=== PATIENT | female | born 1950 | race Caucasian/White ===

== ENCOUNTER → 2017-11-21 09:29 | Outpatient (CLI) | payer MEDICARE, SELFPAY ==
--- NOTE | 2017-11-21 09:32 | MM_ITS ---
MM Dig screening mamm BI w/CAD ORDERING PHYSICIAN : Abraham Larsen MD PATIENT AGE: 67 years GENDER: Female COMPARISON: October outside mammogram studies [facility] INDICATION: ITS.REASON: SCREENING TECHNIQUE: Standard CC and MLO images were obtained. R2 CAD reviewed. FINDINGS: Outside mammogram studies of finally arrived and now available for comparison] . Low-density breast bilaterally. Diffuse fatty replacement. No dominant mass nor suspicious calcifications either breast. . IMPRESSION: no new areas of significant concern. Follow-up in one year recommended Stable mammogram BI-RADS Category: 1 Negative RECOMMENDED FOLLOW-UP: 1YR 1 YEAR FOLLOW-UP (A letter has been sent to the patient regarding results of the study.)
== END ==
PROVIDERS: PCP Family Medicine; Visit Provider Family Medicine
DX: Z12.31 Encounter for screening mammogram for malignant neoplasm of breast (principal)
CPT/HCPCS: 77067

== ENCOUNTER → 2019-02-20 12:20 | Outpatient (CLI) | payer MEDICARE, SELFPAY ==
--- NOTE | 2019-02-20 12:27 | XR_ITS ---
PROCEDURE: XR LUMBAR SPINE MIN 4V CLINICAL INDICATION: LBP W/ SCIATICA COMPARISON: No exams were available for comparison FINDINGS: There is normal curvature and alignment. L2 through L5 appear intact. There is minor non recent compression fracture of L1 prominent anterior osteophytic spurring at the T12-L1 level. There is approximately 20 percent loss of height of L1. There is no pars defect. There are mild hypertrophic facet changes at the L4-5 L5-S1 levels. The SI joints are normal.. IMPRESSION: Non recent compression fracture of L1 otherwise centrally unremarkable lumbar spine Dictated by: Dr. Asif Bradford MD 02/21/2019 09:[address] Asif Bradford MD in [place] 02/21/2019 09:15
== END ==
PROVIDERS: PCP Family Medicine; Visit Provider Family Medicine
DX: M54.42 Lumbago with sciatica, left side (principal)
CPT/HCPCS: 72110

== ENCOUNTER → 2019-03-01 13:33 | Outpatient (CLI) | payer MEDICARE, SELFPAY | PROVIDERS: PCP Family Medicine; Visit Provider Family Medicine | DX: M54.5 Low back pain (principal) ==

== ENCOUNTER → 2019-04-13 12:34 | Outpatient (CLI) | payer MEDICARE, SELFPAY ==
--- NOTE | 2019-04-13 12:37 | MR_ITS ---
PROCEDURE: MR LUMBAR SPINE WO CON CLINICAL INDICATION: BILATERAL LOW BACK PAIN W/SCIATICA, SCIATICA LATERALLY UNSPE COMPARISON: No exams were available for comparison TECHNIQUE: Standard multiplanar multiecho sequences are performed without contrast. 3-D MIP and myelographic images are also rendered and reviewed FINDINGS: The vertebrae are of normal height and alignment. There is no malignant bone marrow signal. Desiccation of all visualized intervertebral discs from T11-12 to L5-S1 are noted. At T12-L1, L1-L2, L2-3 there is eccentric disc bulge toward the right lateral and foraminal margin of the disc space. There are no high-grade central canal or foraminal stenosis. At L3-4 there is disc bulge greatest in the right foraminal and lateral margin of the disc space. There is hypertrophic facet disease. There is mild mass effect on the thecal sac without high-grade central canal stenosis. There is bilateral foraminal stenosis right greater than left. At L4-5 there is broad-based disc bulge and there is hypertrophic facet disease. Small annular tear is seen along the posterior left lateral margin of the disc without herniation. There is mild mass effect on the thecal sac without central canal stenosis is apparent. There is bilateral foraminal stenosis right greater than left. At L5-S1 there is broad-based disc bulge and there is hypertrophic facet disease with no significant mass effect upon the thecal sac. There is bilateral foraminal stenosis right greater than left. IMPRESSION: Multilevel degenerative disc and facet disease with no disc herniation with foraminal stenoses as described appearing greatest on the right at L4-5 Dictated by: Kishan Sorensen 04/13/2019 13:44 Electronically signed by Kishan Sorensen in [place] 04/13/2019 13:44
== END ==
PROVIDERS: PCP Family Medicine; Visit Provider Family Medicine
DX: M54.40 Lumbago with sciatica, unspecified side (principal); S32.010A Wedge compression fracture of first lumbar vertebra, initial encounter for closed fracture
CPT/HCPCS: 72148; 76376

== ENCOUNTER → 2019-06-11 11:13 | Outpatient (POV) | payer MEDICARE, SELFPAY ==
[2019-06-11 11:27] VITALS: BP 116/68; PULSE 67; RESP 18; TEMP 36.6; O2SAT 99; BMI 27.8
--- NOTE | 2019-06-11 14:32 | HMH.PMCON ---
Assessment and Plan (1) Degenerative joint disease (DJD) of lumbar spine Current visit: Yes Status: Chronic Qualifiers: Spinal osteoarthritis complication: with radiculopathy Qualified Code(s): M47.26 - Other spondylosis with radiculopathy, lumbar region Category: Medical Code(s): M47.816 - Spondylosis without myelopathy or radiculopathy, lumbar region - Assessment and plan all Dx Assessment and Plan for all problems:: We will set the patient up for physical therapy. She is been instructed to call the office if she has any issues prior to her next appointment. We will follow-up with her after 8 weeks of therapy. We specifically discussed risk factors for Covid-19 including age, heart or lung disease, diabetes, immunosuppression and travel. We also discussed that NSAIDs may worsen Covid-19 infection symptoms and that they should not be used to treat Covid-19 symptoms. Patient was also informed that corticosteroids in any form oral or injectable will decrease immune response and may increase risk of Covid-[address] Sorensen has reviewed this patient's chart and this note and agrees with plan of care. Patient has been instructed to call the office if they have any issues prior to the next appointment. Dr. Sorensen has reviewed this note and agrees with this plan of care. This note was dictated using voice recognition software and may contain errors or omissions HPI - Data of Consult Consult date: 06/11/19 Requesting Physician: Alka Zayas APRN Primary Care Provider: Abraham Larsen MD - Consult Narrative Reason for consult: Back pain, leg pain History of present illness: Ms. Wright is a 70 year old female who presents today for consultation in regards to her low back and leg pain. She is has left hip pain radiating into her leg as well. She states increased activity increases her pain will rest and meloxicam decrease her pain. She states is worse when she is lying down. Patient rates her pain today a 7 out of 10. Patient has an MRI showing some degenerative changes bulging disc again and old L1 compression fracture. She is unable to take gabapentin because it makes me crazy . Patient is uninterested in injective therapy because she states she has heard that it weakens the bones and deteriorates them. Patient and I discussed physical therapy and she would like to move forward with this. CC: Alka Zayas APRN [facility] History I have reviewed the patient's past medical history: Yes Medical History: Reports:: Diabetes Mellitus Type 2, Hyperlipidemia Denies:: Cancer, Diabetes Mellitus Type 1, MRSA *Have you ever received a pneumonia vaccine?: Yes *Have you received a flu vaccine this season?: Yes Other Medical History: Reports: Arthritis Other Surgeries: Yes: Colonoscopy Amputation: No Fractures: No - *Social History Smoking Status: Never smoker Alcohol Intake: never *Occupational Status:: other Housing: house Household Members: other *Travel in the last 8 weeks: None Family Hx:: Unable to obtain Review of Systems - Review of Systems ROS General: no recent weight change, no fever, no sleep disturbances Respiratory: no cough, no shortness of air, no recurring pulmonary infections Cardiovascular/Peripheral Vascular: No chest pain, No palpitations, no edema, no shortness of breath. Gastrointestinal: no new onset incontinence, normal bowel movements reported Genitourinary: no new onset incontinence Musculoskeletal: Back pain, leg pain Psychiatric: normal mood/ affect, Neurological: [denies new onset weakness in extremities], [denies new onset balance issues] Meds Home Medications Medication Instructions Recorded Confirmed Type Insulin NPH Hum/Reg Insulin Hm 45 unit SQ BID 10/08/17 12/15/17 History [Novolin 70-30 100 Unit/ml Vial] Aspirin [Aspirin 81mg EC Tab] 81 mg PO DAILY 12/15/17 12/15/17 History Cholecalciferol (Vitamin D3) 1,000 unit PO DAILY
== END ==
PROVIDERS: PCP Family Medicine; Visit Provider Clinical Nurse Specialist Family Health
DX: M47.26 Other spondylosis with radiculopathy, lumbar region (principal)
CPT/HCPCS: 99202

== ENCOUNTER 2019-08-16 09:00 | Outpatient (RCR) | payer MEDICARE, SELFPAY ==
--- NOTE | 2019-06-25 14:01 | HMH.PTOPEV ---
PT Outpatient Evaluation Rehab PT Outpatient Evaluation Start: 06/25/19 13:25 Freq: Status: Active Protocol: Document 06/25/19 13:25 NERY (Rec: 06/25/19 14:01 NERY [id number]) Electronically Signed By Mich Gar, PT 06/25/19 13:25 Outpatient Therapy Subjective History Subjective History Pt reports h/o chronic LBP since 'bad tubal surgery in the 80's'. Pt reports exacerbation of s/s ~2 yrs ago after falling off ladder, casuing L sided LBP and L LE radicular s/s to the toes. Pt reports TIA caused balance deficits, which led to aforementioned fall. Chief Complaint Pain,Stiff,Paresthesia, Weakness Symptom Type Ache,Sharp,Dull Symptoms Relieved By Rest/Positioning,Heat Symptoms Aggravated By Bending/Stooping,Physical Activity,Lifting Prior Functional Limitations Lifting,Housework Current Functional Limitations Lifting,Housework,Squatting, Walking,Bending/Stooping Symptom Description Constant but Variable Level of pain today (0-10) 10 Pain scale - at its best (0-10) 4 Pain scale - at its worst (0-10) 10 Lumbopelvic Eval Posture Thoracic Spine Posture Standing Position Flattened Lumbar Spine Posture Standing Position Flattened Assistive device Assistive Devices None / NA Gait Observation General Gait Pattern Observation Antalgic Gait Palapation tenderness left lumbar spinal tenderness Yes: 2-3/4 paraspinal tenderness Yes: 3/4 buttock tenderness Yes: 3/4 Lumbar/Sacral Palpation Findings Tenderness,Trigger Point, Muscle Guarding Accessory Movement T-spine Vertebrae Accessory Movements Central P/A [place] that Elicit Symptoms T10 bilateral T11 bilateral T12 bilateral L-spine Vertebrae Accessory Movements Central P/A [place] that Elicit Symptoms L2 bilateral L3 bilateral Range of Motion Lumbar Spine Active Flexion Range of 0-60 Motion (degrees) Lumbar Spine Active Extension Range of 0-20 Motion (degrees) Left Lumbar Spine Lateral Flexion Active 0-20 Range of Motion (degrees) Right Lumbar Spine Lateral Flexion 0-25 Active Range of Motion (degrees) Lumbar Spine ROM Limitations Soft Tissue Tightness,Pain Manual Muscle Test Bilateral Knee Extension Strength Grade 5 Normal
--- NOTE | 2019-07-31 11:46 | HMH.RHREAS ---
Rehab Reassessment Rehab OP Re-assessment Start: 07/31/19 11:27 Freq: Status: Active Protocol: Document 07/31/19 11:27 LAUROMO (Rec: 07/31/19 11:46 LAUROMO [id number]) Electronically Signed By Mich Gar, PT 07/31/19 11:27 Rehab Re-assessment Subjective Subjective PT REPORTS IMPROVEMENTS IN ABILITY TO AMBULATE SINCE I EVAL, HOWEVER STILL REPORTS SIGNIFICANT PAIN IN B LE'S AT NIGHT Objective Objective Notes MMT: L HIP FLX 4-/5, L KNEE EXT 4-4+/5, L KNEE FLX 4-/5, L DF 5/5 AROM: LUMBAR SPINE FLX 0-20, EXT 0-20, R SB 0-20, L SB 0-15 TTP: L LUMBAR PARA 2-3/4, L PIRIFORMIS 2-3/4 Assessment Progress Assessment Slower Than Expected Assessment Notes SLIGHT IMPROVEMENT IN TTP Patient goals met STG'S 04/29 Goals Not Met STG'S 07/30, LTG'S 10/30 Plan Plan PT TO CONT. W/SKILLED P.T. TO MAKE FURTHER IMPROVEMENTS IN AROM, STRENGTH, AND TTP TO ALLOW FOR OPTIMAL FUNCTION Frequency of Therapy 1-2X/WK Duration of therapy 3-4WKS Time and Billing Re-Eval Time 15 Re-Eval Billing Units 0 PHYSICIAN CERTIFICATION: I certify the specified therapy services for Keren Wright are required, authorized, and reviewed every 30 days.
== END 2019-08-16 09:05 | disposition home or self-care (01) ==
LOC: PT 09:00
PROVIDERS: PCP Family Medicine; Visit Provider Clinical Nurse Specialist Family Health
DX: M54.5 Low back pain (principal)
CPT/HCPCS: 97010; 97014; 97033; 97035; 97110; 97163; 97164; G0283

== ENCOUNTER → 2019-09-18 13:07 | Outpatient (CLI) | payer MEDICARE, SELFPAY ==
--- NOTE | 2019-09-18 | CA_ITS ---
APPROVED REPORT Bilateral Lower Extremity Venous Study for DVT. 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 Conclusion No evidence of DVT or superficial thrombophlebitis in the veins scanned of the left lower extremity. Electronically signed by : Alfonso Barrientos, 09/19/2019 11:32:19
--- NOTE | 2019-09-18 13:38 | XR_ITS ---
PROCEDURE: XR KNEE LT 3V CLINICAL INDICATION: LT LEG PAIN Sciatica pain. COMPARISON: No exams were available for comparison FINDINGS: No fracture or dislocation. No lytic or blastic change. There is bony demineralization. Mild/moderate osteoarthrosis of the medial femorotibial compartment. Mild arthrosis of the patellofemoral articulation Other findings:No demonstrated joint effusion. Mixed density changes are incompletely visualized posteriorly in the distal thigh, question hematoma, suggest clinical correlation. IMPRESSION: 1. No demonstrated acute osseous injury or dislocation. Osteopenia. 2. Mixed density soft tissue changes are incompletely visualized posteriorly in the distal left thigh. Please correlate clinically. Dictated by: Alfonso Barrientos 09/18/2019 17:23 Electronically signed by Alfonso Barrientos in [place] 09/18/2019 17:23
--- NOTE | 2019-09-18 13:38 | XR_ITS ---
PROCEDURE: XR HIP LT 2-3V W/PELVIS CLINICAL INDICATION: LT LEG PAIN Sciatica pain. COMPARISON: No exams were available for comparison FINDINGS: No fracture or dislocation is evident. No lytic or blastic change. Bones appear somewhat osteopenic. Visualized bilateral iliac wings, sacrum and superior/inferior pubic rami appear intact. There is moderate right hip and moderately severe left hip osteoarthrosis evident with mild asymmetric joint space narrowing, subchondral sclerosis and with left acromial osteophyte formation laterally. Moderately increased stool is seen in the ascending and rectosigmoid colon. A 1.2 centimeter rounded calcified density centrally in mid pelvis is seen, probably a small calcified fibroid Unremarkable soft tissues. IMPRESSION: 1.No acute findings. 2. Mild/moderate right hip and moderate left hip osteoarthrosis. Dictated by: Alfonso Barrientos 09/18/2019 14:08 Electronically signed by Alfonso Barrientos in [place] 09/18/2019 14:08
== END ==
PROVIDERS: PCP Family Medicine; Visit Provider Nurse Practitioner Family
DX: M79.605 Pain in left leg (principal)
CPT/HCPCS: 73502; 73562; 93971

== ENCOUNTER → 2019-09-20 09:53 | Outpatient (POV) | payer MEDICARE, SELFPAY ==
[2019-09-20 10:36] VITALS: BP 132/88; PULSE 85; RESP 18; TEMP 37; O2SAT 98; BMI 29.0
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
== END ==
PROVIDERS: PCP Family Medicine; Visit Provider Clinical Nurse Specialist Family Health
DX: M46.1 Sacroiliitis, not elsewhere classified (principal); M54.5 Low back pain
CPT/HCPCS: 99212

== ENCOUNTER → 2019-09-27 09:50 | Outpatient (CLI) | payer MEDICARE, SELFPAY ==
--- NOTE | 2019-09-27 09:55 | MM_ITS ---
PROCEDURE: MM DIG SCREENING MAMM BI W/CAD Patient Age:70Y CLINICAL INDICATION: SCREENING COMPARISON: [place] Mammogram Routine Screening Bilat from 08/14/2008 [facility] Mammogram Routine Screening Bilat from 08/21/2009 [facility] Mammogram Routine Screening Bilat from 10/28/2010 [facility] MM Dig screening mamm BI w/CAD from 11/21/2017 TECHNIQUE: Standard CC and MLO images were obtained. R2 CAD reviewed. Bilateral digital breast tomosynthesis included. FINDINGS: Lower density breast with no new areas of concern. Minimal fibroglandular elements bilaterally with [id number] diffuse fatty replacement. No new dominant or suspicious mass. No suspicious calcifications, only minimal vascular calcifications.. Minor asymmetry IMPRESSION: Stable bilateral mammogram. . No new areas of concern. BI-RAD Category: 2 Benign Finding(s) FOLLOW-UP: 1YR 1 Year Follow-up is the the (A letter has been sent to the patient regarding results of the study.) Dictated b Demond Pearce MD 09/28/2019 12:55 Demond Pearce MD in [place] 09/28/2019 12:55
--- NOTE | 2019-09-27 09:56 | XR_ITS ---
PROCEDURE: XR DEXA AXIAL SKELETON CLINICAL HISTORY: POST MENOPAUSAL COMPARISON: No exams were available for comparison FINDINGS: The right hip BMD is 0.628 with a t-score of -2.0. The left hip BMD is 0.664 with a t-score of -2.3. The lumbar spine BMD is 0.863 with a t-score of -1.7. IMPRESSION: Osteopenia with moderate fracture risk. Treatment advised. Suggest follow-up exam in 2 years. Dictated b Fabio Peña MD 09/28/2019 06:05 Fabio Peña MD in [place] 09/28/2019 06:05
== END ==
PROVIDERS: PCP Family Medicine; Visit Provider Nurse Practitioner Family
DX: Z12.31 Encounter for screening mammogram for malignant neoplasm of breast (principal); Z78.0 Asymptomatic menopausal state; M85.89 Other specified disorders of bone density and structure, multiple sites
CPT/HCPCS: 77063; 77067; 77080

== ENCOUNTER → 2020-01-10 10:58 | Outpatient (POV) | payer MEDICARE, SELFPAY ==
[2020-01-10 11:21] VITALS: BP 136/86; PULSE 67; RESP 18; O2SAT 98; BMI 28.6
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
== END ==
PROVIDERS: PCP Family Medicine; Visit Provider Clinical Nurse Specialist Family Health
DX: M54.5 Low back pain (principal); M46.1 Sacroiliitis, not elsewhere classified
CPT/HCPCS: 99212

== ENCOUNTER 2020-02-04 14:00 | Emergency (ER) | payer MEDICARE, SELFPAY ==
[2020-02-04 14:20] VITALS: BP 131/74; PULSE 67; RESP 21; TEMP 37.1; O2SAT 98; BMI 28.1
--- NOTE | 2020-02-04 14:45 | HMH.EDUTC ---
[facility] [place] Disposition Clinical Impression: Bronchitis, Exposure to COVID-19 virus Disposition: Home, Self-Care Condition on Discharge: Good Instructions: Preventing the Spread of Coronavirus Discharge Instructions Additional Instructions: Drink plenty of fluids. Take tylenol or ibuprofen for pain or fever. Take the medications as directed. Follow up with your regular doctor. GO TO THE ER FOR ANY WORSENING SYMPTOMS Prescriptions: Benzonatate [Tessalon Perle 100mg Cap] 100 mg PO TIDP PRN #30 cap PRN Reason: Cough [facility]: [id number] Azithromycin [Z-Jose Guadalupe 250mg Tab*] 250 mg PO UD DOSE PK #6 tab Transmission Status: Received by [id number] Referrals: Abraham Larsen MD [Primary Care Provider] - Time of Disposition: 14:57 Medical Decision Making - Medical Records Medical records reviewed: No: I reviewed the patient's medical records. - Suresh Inquiry Pt receiving controlled substance: No Vital Signs: 02/04/20 14:20 02/04/20 14:58 Temperature 98.7 F 98.7 F Temperature Source Oral Pulse Rate 67 Pulse Rate [Left Brachial] 67 Respiratory Rate 21 21 Blood Pressure 131/74 Blood Pressure [Left Arm] 131/74 Blood Pressure Mean [Left Arm] 93 Blood Pressure Source [Left Arm] Automatic Cuff Blood Pressure Position [Left Arm] Sitting 02 Sat by Pulse Oximetry 98 Oxygen Delivery Method Room Air Orders (Tests/Meds): ORDERS Category Date Time Status Covid-19 Nasal PCR Sendout Saleem Routine Lab 02/04/20 14:25 Received [facility] [place] HPI - General Stated complaint: covid test Time Seen by Provider: 02/04/20 14:45 Mode of Arrival: Ambulatory Source of Information: Patient Limitations: No Limitations Description of Symptoms (Recalled from Triage Doc. by RN): PATIENT C/O DIARRHEA, FATIGUE, NAUSEA, HEADACHE, BACK PAIN, DECREASED HEARING IN RIGHT EAR, AND DIZZINESS X APPROX 1 WEEK. DENIES FEVER HEENT Symptoms (Recalled from RN notes): Yes Resp Symptoms (Recalled from RN notes): Yes Skin Symptoms (Recalled from RN notes): Yes MS Symptoms (Recalled from RN notes): No Functional Status (Recalled from RN notes): WNL - History of Present Illness Provider Complaint: She states that for the past 3 days she has had upset stomach, chest congestion, cough, sinus congestion and ear pain. - Related Data Home Medications Medication Instructions Recorded Confirmed Cholecalciferol (Vitamin D3) 1,000 unit PO DAILY 12/15/17 12/27/19 [Vitamin D3 1,000 Unit Tab] atorvastatin 80 mg tablet PO 06/18/19 12/27/19 glipizide 5 mg tablet, extended mg PO 06/18/19 12/27/19 release 24 hr insulin human U-100 NPH-regulr 60 unit SQ BID ml 12/27/19 12/27/19 70-30 mix 100 unit/mL subcutaneous susp pregabalin 100 mg capsule 100 mg PO cap 12/27/19 12/27/19 Previous Rx's Medication Instructions Recorded Meloxicam [Mobic 7.5mg Tab] 7.5 mg PO BID #20 tab 12/15/17 ciclopirox 8 % topical solution 1 applic TOPICAL DAILY 90 Days 06/18/19 #6.6 ml ketoconazole 2 % topical cream 1 applic TOPICAL BID 30 Days #30 g 12/27/19 Duloxetine HCl [Cymbalta] 30 mg PO DAILY 30 Days #30 01/10/20 capsule. Azithromycin [Z-Jose Guadalupe 250mg Tab*] 250 mg PO UD DOSE PK #6 tab 02/04/20 Benzonatate [Tessalon Perle 100mg 100 mg PO TIDP PRN #30 cap 02/04/20 Cap] Allergies Allergy/AdvReac Type Severity Reaction Status Date / Time codeine Allergy Intermediate Verified 12/27/19 14:31 - Worker's Comp Is this a Worker's Comp case?: No [facility] History - Hepatitis A Screen Drug use history?: No High risk sexual behaviors?: No History of sexually transmitted infection?: No Currently employed?: No Childcare worker?: No Do you have indoor plumbing?: Yes Do you have electricity?: Yes Attestation statement:: This patient has been screened for Hepatitis A risk factors. I have reviewed the patient's past medical history: Yes Medical History: Reports:: Diabetes Mellitus Type 2, Hyperlipidem
[2020-02-04 14:58] VITALS: BP 131/74; PULSE 67; RESP 21; TEMP 37.1; O2SAT 98
[2020-02-07 10:24] LABS: Covid-19 Nasal PCR Sendout Lex Positive
--- NOTE | 2020-02-07 11:07 | PC.NURSE ---
PT NOTIFIED OF POSITIVE COVID TEST RESULTS
== END 2020-02-04 15:05 | disposition home or self-care (01) ==
PROVIDERS: Emergency Provider Nurse Practitioner Family; PCP Family Medicine
DX: Z20.828 Contact with and (suspected) exposure to other viral communicable diseases (principal); J20.9 Acute bronchitis, unspecified; E78.5 Hyperlipidemia, unspecified; E11.9 Type 2 diabetes mellitus without complications; Z88.5 Allergy status to narcotic agent; Z79.899 Other long term (current) drug therapy
CPT/HCPCS: G0463; 99201; U0004

== ENCOUNTER → 2020-03-27 11:25 | Outpatient (CLI) | payer MEDICARE, SELFPAY | PROVIDERS: PCP Family Medicine; Visit Provider Family Medicine | DX: G47.33 Obstructive sleep apnea (adult) (pediatric) (principal); R40.0 Somnolence; R06.83 Snoring | CPT/HCPCS: G0399 ==

== ENCOUNTER 2020-04-04 09:53 | Observation (INO) | payer MEDICARE, SELFPAY ==
[2020-04-04] VITALS (8 sets, daily range): BP systolic 126–200; BP diastolic 55–84; PULSE 54–62; RESP 16–20; TEMP 36.6–36.9; O2SAT 92–99; BMI 30.7; BMI 29.2
--- NOTE | 2020-04-04 10:07 | XR_ITS ---
PROCEDURE: XR HIP RT 2-3V W/PELVIS CLINICAL INDICATION: fall Posttraumatic pain COMPARISON: CR XR HIP LT 2-3V W/PELVIS from 09/18/2019 FINDINGS: There are mild osteoarthritic changes of the hips. No acute fracture or dislocation. IMPRESSION: No acute findings. Dictated by: Fabio Peña MD 04/04/2020 10:31 Fabio Peña MD in [place] 04/04/2020 10:31
[2020-04-04 10:23] LABS: Basophils % 0.8 % (0.1-2.0); Eosinophils # 0.2 K/mm3 (0.0-0.4); Eosinophils % 2.9 % (0.1-12.0); Hematocrit 43.9 % (37.0-47.0); Hemoglobin 14.3 g/dL (12.2-16.2); Lymphocytes # 1.7 K/mm3 (0.7-4.5); Lymphocytes % 31.9 % (10-50); Mean Corpuscular HGB Conc 32.6 g/dL (31.8-35.4); Mean Corpuscular Hemoglobin 29.7 pg (27.0-31.2); Mean Corpuscular Volume 91.3 fl (81-99); Mean Platelet Volume 8.4 fl (7.4-10.4); Monocytes # 0.3 K/mm3 (0.1-1.0); Monocytes % 5.8 % (1.7-9.3); Neutrophils # 3.1 K/mm3 (1.8-7.8); Neutrophils % 58.6 % (37.0-80.0); Platelet Count 221 K/mm3 (142-424); Red Blood Count 4.81 M/mm3 (4.20-5.40); Red Cell Distribution Width 13.7 % (11.5-17.5); White Blood Count 5.2 K/mm3 (4.8-10.8)
[2020-04-04 10:30] LABS: Chloride 103 mmol/L (98-107); Potassium 3.7 mmoL/L (3.5-5.1); Sodium 140 mmol/L (136-145)
[2020-04-04 10:32] LABS: Alanine Aminotransferase 17 U/L (12-78); Aspartate Amino Transferase 23 U/L (14-36); Blood Urea Nitrogen 11 mg/dl (7-17); Creatinine Clearance Estimated 68 mL/min (50-200); Estimated Glomerular Filt Rate 70 ml/min (>60); GFR (African American) 85 ML/MIN (>60)
[2020-04-04 10:33] LABS: Albumin Level 4.5 g/dl (3.5-5.0); Albumin/Globulin Ratio 1.4 (1.1-1.8); Alkaline Phosphatase 87 U/L (38-126); Anion Gap 6.7 mEq/L (5-15); Bilirubin,Total 0.8 mg/dl (0.2-1.3); Calcium 9.7 mg/dl (8.4-10.2); Carbon Dioxide 34 mmol/L (22.0-30.0); Globulin 3.2 g/dL (1.3-3.2); Glucose 170 mg/dl (74-100); Total Protein,Serum 7.7 g/dl (6.3-8.2)
--- NOTE | 2020-04-04 10:43 | HMH.EDGENADL ---
ED Disposition Clinical Impression: Multiple transverse process fractures Disposition: Admitted as Observation Condition on Discharge: Fair - Critical Care Critical Care Time: No Attestation: On 04/04/20, the high probability of a clinically significant, sudden or life threatening deterioration of the following system(s) required my full and direct attention, intervention and personal management. The time I documented below is in addition to time spent performing reported procedures but includes the following listed in this critical care notation. Medical Decision Making - Suresh Inquiry Pt receiving controlled substance: Yes Suresh was queried for this patient: Yes Risks and benefits of using a controlled substance: were not discussed with pt by me Vital Signs: 04/04/20 09:54 04/04/20 10:34 04/04/20 11:00 Temperature 98.5 F Temperature Source Oral Pulse Rate Pulse Rate [Radial] 61 57 L 58 L Respiratory Rate 16 18 18 Blood Pressure Blood Pressure [Right Arm] 200/84 H 188/78 H 176/84 H Blood Pressure Mean [Right Arm] 122 114 114 Blood Pressure Source Blood Pressure Position Blood Pressure Position [Right Arm] Sitting 02 Sat by Pulse Oximetry 98 97 99 Oxygen Delivery Method Room Air Room Air 04/04/20 11:30 04/04/20 14:07 04/04/20 14:43 Temperature 98 F Temperature Source Oral Pulse Rate 62 Pulse Rate [Radial] 54 L 60 Respiratory Rate 18 16 Blood Pressure 170/82 H Blood Pressure [Right Arm] 175/76 H 170/82 H Blood Pressure Mean [Right Arm] 109 111 Blood Pressure Source Manual Cuff/ Palpation Blood Pressure Position Supine Blood Pressure Position [Right Arm] Sitting 02 Sat by Pulse Oximetry 96 Oxygen Delivery Method Room Air - Lab Data Lab results reviewed: Yes: I reviewed the patient's lab results. Lab Results 04/04/20 10:06: WBC 5.2, RBC 4.81, Hgb 14.3, Hct 43.9, MCV 91.3, MCH 29.7, MCHC 32.6, RDW 13.7, Plt Count 221, MPV 8.4, Neut % (Auto) 58.6, Lymph % (Auto) 31.9, Russell % (Auto) 5.8, Eos % (Auto) 2.9, Baso % (Auto) 0.8, Neut # (Auto) 3.1, Lymph # (Auto) 1.7, Russell # (Auto) 0.3, Eos # (Auto) 0.2, Baso # (Auto) 0.0 04/04/20 10:06: Sodium 140, Potassium 3.7, Chloride 103, Carbon Dioxide 34 H, Anion Gap 6.7, BUN 11, Creatinine 0.80, Estimated Creat Clear 68, Estimated GFR 70, Est GFR ( Amer) 85, Glucose 170 H, Calcium 9.7, Total Bilirubin 0.8, AST 23, ALT 17, Alkaline Phosphatase 87, Total Protein 7.7, Albumin 4.5, Globulin 3.2, Albumin/Globulin Ratio 1.4 04/04/20 10:10: Chlamy pneumoniae PCR Not detected, Adenovirus (PCR) Not detected, B. pertussis DNA (PCR) Not detected, Coronavirus OC43 (PCR) Not detected, Coronavirus HKU1 (PCR) Not detected, Coronavirus 229E (PCR) Not detected, SARS-CoV-2 (PCR) Not detected, Coronavirus NL63 (PCR) Not detected, Human Metapneumovir PCR Not detected, Influenza A (H1) PCR Not detected, Influ A (H1N1/09) PCR Not detected, Influenza A (H3) PCR Not detected, Influenza Type A (PCR) Not detected, Influenza Type B (PCR) Not detected, M. pneumoniae (PCR) Not detected, Parainfluenza 1 (PCR) Not detected, Parainfluenza 2 (PCR) Not detected, Parainfluenza 3 (PCR) Not detected, Parainfluenza 4 (PCR) Not detected, RSV (PCR) Not detected, Entero/Rhino (PCR) Not detected Result diagrams: 04/04/20 10:06 04/04/20 10:06 Orders (Tests/Meds): ED MEDICATIONS Generic Name Dose Route Start Last Admin Trade Name Freq PRN Reason Stop Dose Admin Acetaminophen 1,000 mg 04/04/20 15:17 Acetaminophen 500mg Tab PO 05/04/20 15:16 Q6HP PRN Mild to Moderate Pain Atorvastatin Calcium 80 mg 04/04/20 21:00 Atorvastatin 40mg Tablet PO 05/04/20 20:59 HS MONICA Diazepam 2 mg 04/04/20 15:34 Diazepam 2mg Tablet PO 05/04/20 15:33 Q6HP PRN Muscle Spasm Duloxetine HCl 30 mg 04/05/20 09:00 Duloxetine 30mg Capsule.Dr CARRION 05/05/20 08:59 DAILY [facility] Insulin Human Lispro 0 unit 04/04/20 16:30 04/04/20 17:29
--- NOTE | 2020-04-04 10:50 | CT_ITS ---
PROCEDURE: CT PELVIS WO CON CLINICAL INDICATION: fall Posttraumatic pain, fall with injury and pain COMPARISON: MR MR LUMBAR SPINE WO CON from 04/13/[address] HIP RT WO CON from 04/04/2020 TECHNIQUE: Axial images obtained with sagittal and coronal reformats. All CT scans at the facility use one or more dose reduction, viz: automated exposure control, ma/kV adjustment per patient size (including targeted exams where dose is matched to indication, i.e. head), or iterative reconstruction technique. FINDINGS: There is generalized osteopenia. Mild osteoarthritic changes are present involving the hips. There is a faint lucency involving the anterior aspect of the right acetabulum. This may only be related to segmentation/partial volume averaging of an osteophyte and is best seen on image 59 series 3. This is of questionable clinical significance. Mild cortical irregularity involves the see 1 segment of the coccyx posteriorly and may be related to a nondisplaced fracture age indeterminate. There is soft tissue lobulation of the uterus anteriorly on the right suggesting fibroid involvement. There is colonic diverticulosis. No other significant abnormalities are evident. IMPRESSION: 1. Faint cortical lucency of the acetabulum anteriorly and superiorly and may only be related to overlying osteophyte with partial volume averaging artifact versus a nondisplaced fracture, favor the former. 2. Minimal cortical regularity of the C1 segment of the coccyx suggesting nondisplaced fracture age indeterminate 3. Mild osteoarthritis of the hips 4. Uterine fibroid suspected and may be confirmed with nonemergent ultrasound Dictated by: Fabio Peña MD 04/04/2020 11:55 Fabio Peña MD in [place] 04/04/2020 11:55
--- NOTE | 2020-04-04 10:50 | CT_ITS ---
PROCEDURE: CT LUMBAR SPINE WO CON CLINICAL HISTORY: fall Posttraumatic pain, low back pain COMPARISON: CR XR LUMBAR SPINE MIN 4V from 02/20/2019 TECHNIQUE: Axial images obtained with sagittal and coronal reformats. All CT scans at the facility use one or more dose reduction, viz: automated exposure control, ma/kV adjustment per patient size (including targeted exams where dose is matched to indication, i.e. head), or iterative reconstruction technique. FINDINGS: There is generalized osteopenia. There is normal alignment. L1-L2: Nondisplaced fracture involves the mid aspect of the right L1 transverse process. L2-L3: A nondisplaced fracture involves the mid aspect of the right L2 transverse process L3-L4: Facet and ligamentum hypertrophy. Nondisplaced fracture involves the mid aspect of the right L3 transverse process. Bulging disc is present. L4-5: Bulging disc with facet and ligamentum hypertrophy with bilateral lateral recess and foraminal narrowing. L4-5: Bulging disc. Prominent facet hypertrophic changes. The bulging disc is slightly eccentric toward the left. There is mild bilateral foraminal narrowing. Incidental note is made of cholelithiasis. Calcification is present the in the right upper quadrant and may be due to stones within the common duct. This is seen on image 22 series 3. Nonemergent MRCP may be of further value. IMPRESSION: 1. Nondisplaced fractures involving the right L1-L2 and L3 transverse processes. 2. Lumbar spondylosis with bulging disc and facet and ligamentum hypertrophy. Please see above for detailed description at each level. 3. Cholelithiasis with possible stones in the common duct. Nonemergent MRCP may provide further evaluation. Dictated by: Fabio Peña MD 04/04/2020 11:41 Fabio Peña MD in [place] 04/04/2020 11:41
--- NOTE | 2020-04-04 10:52 | CT_ITS ---
PROCEDURE: CT HIP RT WO CON CLINICAL HISTORY: fall Posttraumatic pain COMPARISON: CT CT PELVIS WO CON from 04/04/2020 TECHNIQUE: Axial images obtained with sagittal and coronal reformats. All CT scans at the facility use one or more dose reduction, viz: automated exposure control, ma/kV adjustment per patient size (including targeted exams where dose is matched to indication, i.e. head), or iterative reconstruction technique. FINDINGS: No acute fracture or dislocation. Minimal osteoarthritic changes are noted. No lytic or blastic change old avulsion injury versus enthesophyte at the iliac crest anteriorly IMPRESSION: No acute fracture Dictated by: Fabio Peña MD 04/04/2020 11:46 Fabio Peña MD in [place] 04/04/2020 11:46
--- NOTE | 2020-04-04 10:59 | PC.NURSE ---
pt refuses diet tray at this time. family at bedside updated on plan of care
--- NOTE | 2020-04-04 12:13 | PC.NURSE ---
contacted care management and also for consult for home physical therapy.
--- NOTE | 2020-04-04 12:15 | PC.NURSE ---
notified physical therapy for consult on pt.
--- NOTE | 2020-04-04 12:19 | CT_ITS ---
PROCEDURE: CT CERVICAL SPINE WO CON CLINICAL INDICATION: pain Fall with neck pain COMPARISON: No exams were available for comparison TECHNIQUE: Axial images obtained with sagittal and coronal reformats. All CT scans at the facility use one or more dose reduction, viz: automated exposure control, ma/kV adjustment per patient size (including targeted exams where dose is matched to indication, i.e. head), or iterative reconstruction technique. Axial spiral CT scanning performed of the cervical spine beginning at the base of the skull and continuing to the upper T-spine. 3-D multiplanar reconstruction with 3-D manipulation of volumetric data set in image rendering was completed by the radiologist and/or technologist with the supervision of the radiologist on independent workstation. FINDINGS: There is normal alignment. No acute fracture or dislocation is evident. There is mild degenerative disc disease at C4-C5 and C5-C6. no prevertebral soft tissue swelling. Lung apices are clear. Multiple caries are present in the and tubular teeth edentulous maxilla. IMPRESSION: No acute fracture. Dictated by: Fabio Peña MD 04/04/2020 12:55 Fabio Peña MD in [place] 04/04/2020 12:55
--- NOTE | 2020-04-04 12:21 | PC.NURSE ---
pt c/o L side neck pain. Pt describes pain as a soreness . Pt reports pain is mainly when moving her neck. Notified ER MD who gave verbal order to CT scan of c-spine. Have notified Radiology of CT scan order -spoke with Ezekiel.
[2020-04-04 12:39] LABS: Adenovirus,PCR Not Detected (NotDetected); Bordetella Pertussis Not Detected (NotDetected); Chlamydophila Pneumoniae, PCR Not Detected (NotDetected); Coronavirus 19, PCR Not Detected (NotDetected); Coronavirus 229E Not Detected (NotDetected); Coronavirus NL63 Not Detected (NotDetected); Coronavirus OC43 Not Detected (NotDetected); Coronovirus HKU1,PCR Not Detected (NotDetected); Human Metapneumovirus Not Detected (NotDetected); Influenza A, PCR Not Detected (NotDetected); Influenza AH1, 2009 Not Detected (NotDetected); Influenza AH1, PCR Not Detected (NotDetected); Influenza AH3,PCR Not Detected (NotDetected); Influenza B, PCR Not Detected (NotDetected); Mycoplasma Pneumoniae, PCR Not Detected (NotDetected); Parainfluenza 1, PCR Not Detected (NotDetected); Parainfluenza 2, PCR Not Detected (NotDetected); Parainfluenza 3, PCR Not Detected (NotDetected); Parainfluenza 4, PCR Not Detected (NotDetected); Respiratory Syncytial Virus Not Detected (NotDetected); Rhinovirus/Enterovirus Not Detected (NotDetected)
--- NOTE | 2020-04-04 13:06 | P.HP_ITS ---
*Admission Date: 04/04/20 <Maricruz Kay 04/04/20 13:17> *Chief complaint: pain after fall on the ice <Maricruz Kay 04/04/20 15:16> *History of present illness: Ms. Wright is a 71yo female who was brought in by ambulance from a fall. Patient says she stepped on ice and slipped while going out a door. She says she landed on her lower back. She complains of pain in her lower back on the right side around the area of the iliac crest and in her right hip. Denies other injuries. She has a history of some chronic back problems with sciatica for which she takes meloxicam. She says she recently completed physical therapy. (above as per ER physician) She had a work-up in the emergency room. An x-ray and CT of her hip showed no fracture. There was no acute fracture on her cervical spine CT. Her lumbar spine CT however showed nondisplaced fractures involving the right L1, L2, and L3 transverse processes. It also showed cholelithiasis with possible stones in the common duct and radiology felt a nonemergent MRCP may provide further evaluation. Her pelvic CT showed faint cortical lucency of the acetabulum anteriorly and superiorly and radiology felt this was an overlying osteophyte versus a nondisplaced fracture. It also showed a possible coccygeal fracture. The patient was admitted for pain control and physical therapy evaluation. <Maricruz Kay 04/04/20 15:16> [facility] History I have reviewed the patient's past medical history: Yes <Maricruz Kay 04/04/20 13:17> Medical History: Reports:: Diabetes Mellitus Type 2, Hyperlipidemia Denies:: Cancer, Diabetes Mellitus Type 1, MRSA <Maricruz Kay 04/04/20 13:17> *Have you ever received a pneumonia vaccine?: Yes <Maricruz Kay 04/04/20 13:17> *Have you received a flu vaccine this season?: Yes <Maricruz Kay 04/04/20 13:17> Other Medical History: Reports: Arthritis <Maricruz Kay 04/04/20 13:17> Other Surgeries: Yes: Colonoscopy, Tubal Ligation <Maricruz Kay 04/04/20 13:17> Amputation: No <CristianrlMaricruz 04/04/20 13:17> [facility] - *Social History Smoking Status: Never smoker <[facility] 04/04/20 13:17> Alcohol Intake: never <CristianrlMaricruz 04/04/20 13:17> *Occupational Status:: other [facility] 04/04/[facility] 13:17> Housing: [facility] <[facility] 04/04/[facility] 13:17> Household Members: other <[facility] 04/04/[facility] 13:17> *Travel in the last 8 weeks: None <[facility] 04/04/20 15:16> Family Hx:: Diabetes, Heart Attack, Stroke <[facility] 04/04/20 13:17> Review of Systems - Constitutional Denies chills, Denies fever(s) <[facility] 04/04/20 15:16> - Eyes Denies blurry vision, Denies double vision <[facility] 04/04/20 15:16> - ENT Denies nasal congestion, Denies sore throat <[facility] 04/04/20 15:16> - *Cardiovascular Denies chest pain, Denies shortness of breath <[facility] 04/04/20 15:16> - *Respiratory Denies cough, Denies shortness of breath <[facility] 04/04/20 15:16> - *Gastrointestinal Reports nausea, Denies abdominal pain, Denies loose stools, Denies vomiting <[facility] 04/04/20 15:16> - *Genitourinary Denies difficulty urinating, Denies painful urination <[facility] 04/04/20 15:16> - *Musculoskeletal Reports joint pain (hip), Reports back pain (low back) <[facility] 04/04/20 15:16> - *Neurologic Denies headache(s), Denies numbness, Denies dizziness, Denies weakness <[facility] 04/04/20 15:16> Meds Home Medications Medication Instructions Record
--- NOTE | 2020-04-04 13:06 | HMH.HP ---
*Admission Date: 04/04/20 <Maricruz Kay 04/04/20 13:17> *Chief complaint: pain after fall on the ice <Maricruz Kay 04/04/20 15:16> *History of present illness: Ms. Wright is a 71yo female who was brought in by ambulance from a fall. Patient says she stepped on ice and slipped while going out a door. She says she landed on her lower back. She complains of pain in her lower back on the right side around the area of the iliac crest and in her right hip. Denies other injuries. She has a history of some chronic back problems with sciatica for which she takes meloxicam. She says she recently completed physical therapy. (above as per ER physician) She had a work-up in the emergency room. An x-ray and CT of her hip showed no fracture. There was no acute fracture on her cervical spine CT. Her lumbar spine CT however showed nondisplaced fractures involving the right L1, L2, and L3 transverse processes. It also showed cholelithiasis with possible stones in the common duct and radiology felt a nonemergent MRCP may provide further evaluation. Her pelvic CT showed faint cortical lucency of the acetabulum anteriorly and superiorly and radiology felt this was an overlying osteophyte versus a nondisplaced fracture. It also showed a possible coccygeal fracture. The patient was admitted for pain control and physical therapy evaluation. <Maricruz Kay 04/04/20 15:16> [facility] History I have reviewed the patient's past medical history: Yes <Maricruz Kay 04/04/20 13:17> Medical History: Reports:: Diabetes Mellitus Type 2, Hyperlipidemia Denies:: Cancer, Diabetes Mellitus Type 1, MRSA <Maricruz Kay 04/04/20 13:17> *Have you ever received a pneumonia vaccine?: Yes <Maricruz Kay 04/04/20 13:17> *Have you received a flu vaccine this season?: Yes <Maricruz Kay 04/04/20 13:17> Other Medical History: Reports: Arthritis <Maricruz Kay 04/04/20 13:17> Other Surgeries: Yes: Colonoscopy, Tubal Ligation <Maricruz Kay 04/04/20 13:17> [facility]: [facility] 13:17> Fractures: No <[facility] 04/04/20 13:17> - *Social History Smoking Status: Never smoker <[facility] 04/04/20 13:17> Alcohol Intake: never <[facility] 04/04/20 13:17> *Occupational Status:: other <[facility] 04/04/20 13:17> Housing: house <[facility] 04/04/20 13:17> Household Members: other <[facility] 04/04/[facility] 13:17> *Travel in the last 8 weeks: None <[facility] 04/04/20 15:16> Family Hx:: Diabetes, Heart Attack, Stroke <[facility] 04/04/20 13:17> Review of Systems - Constitutional Denies chills, Denies fever(s) <[facility] 04/04/20 15:16> - Eyes Denies blurry vision, Denies double vision <[facility] 04/04/20 15:16> - ENT Denies nasal congestion, Denies sore throat <[facility] 04/04/20 15:16> - *Cardiovascular Denies chest pain, Denies shortness of breath <[facility] 04/04/20 15:16> - *Respiratory Denies cough, Denies shortness of breath <[facility] 04/04/20 15:16> - *Gastrointestinal Reports nausea, Denies abdominal pain, Denies loose stools, Denies vomiting <[facility] 04/04/20 15:16> - *Genitourinary Denies difficulty urinating, Denies painful urination <[facility] 04/04/20 15:16> - *Musculoskeletal Reports joint pain (hip), Reports back pain (low back) <[facility] 04/04/20 15:16> - *Neurologic Denies headache(s), Denies numbness, Denies dizziness, Denies weakness <[facility] 04/04/20 15:16> Meds Home Medications Medication Instructions Recorded Confirmed Type Cholecalciferol (Vitamin D3) 1,000 unit PO DAILY 12/15/17 04/04/20 History [Vitamin D3 1,000 Unit Tab] atorvastatin 80 mg tablet 80 mg PO DAILY 06/18/19 04/04/20 History glipizide 5 mg tablet, extended 5 mg PO DAILY 06/18/19 04/04/20 History release 24 hr insulin human U-100 NPH-regulr 60 unit SQ DAILY ml 12/27/19 04/04/20 History 70-30 mix 100 u
--- NOTE | 2020-04-04 14:09 | P.CONPHA_ITS ---
[facility] Pharmacy VTE Monitoring - Patient Demographics Admission date: 04/04/20 Report Date: 04/04/20 Time: 14:09 Allergies/Adverse Reactions: Patient Allergies codeine Allergy (Intermediate, Verified 12/27/19 14:31) Height: 1.68 m Weight: 86.183 kg Patient Problems: Current Active Problems Degenerative joint disease (DJD) of lumbar spine (Chronic) Multiple transverse process fractures (Acute) Type 2 diabetes mellitus (Chronic) - VTE Risk Labs: VTE Related Lab Results Hgb 14.3 g/dL (12.2-16.2) 04/04/20 10:06 Hct 43.9 % (37.0-47.0) 04/04/20 10:06 Plt Count 221 K/mm3 (142-424) 04/04/20 10:06 BUN 11 mg/dl (7-17) 04/04/20 10:06 Creatinine 0.80 mg/dl (0.52-1.04) 04/04/20 10:06 Estimated Creat Clear 68 mL/min (50-200) 04/04/20 10:06 - Prophylaxis VTE Prophylaxis Ordered?: Yes Types of VTE Prophylaxis: TEDS Knee High Location of Applied Device: Bilateral Lower Extremeties
--- NOTE | 2020-04-04 14:20 | PC.NURSE ---
report to kaleigh smallwood
--- NOTE | 2020-04-04 14:26 | PC.NURSE ---
Pt arrived to the floor at this time.
--- NOTE | 2020-04-04 14:36 | HMH.PTEV ---
Physical Therapy Evaluation Rehab PT IP Evaluation Start: 04/04/20 12:47 Freq: ONCE Status: Active Protocol: Document 04/04/20 14:28 PHORNE (Rec: 04/04/20 14:36 PHORNE [id number]) Subjective/History History History 71 yowf adm to [facility] S/P fall at home on ice with L1-3 R transverse process fxs. She reports she lives with family, no steps to enter the home and is generally independent with all mobility without AD. Subjective Subjective Pt c/o significant pain in the low back with any movement. Rehab PT IP Eval Objective Appearance Patient Behavior Appropriate Patient Orientation Person,Place,Time Difficulty following instructions none Speech Pattern Clear Ambulation Patient Able to Ambulate No Balance Ability to Arise Able, uses arms to help Sitting Balance Steady, safe Standing Balance Steady, wide stance Dynamic Sitting Balance Ability Good Dynamic Standing Balance Ability Fair Transfers Bed Transfer Ability Moderate x 1 (50% assist) Chair Transfer Ability Moderate x 1 (50% assist) Sit to Stand Bed Transfer Ability Moderate x 1 (50% assist) Sit to Stand Chair Transfer Ability Moderate x 1 (50% assist) ROM All Extremities PT ROM Status WFL MMT All Extremities PT MMT WFL Rehab PT IP prob,goals,plan Problems Date of Evaluation: 04/04/20 PT IP Problems Bed Mobility,Transfers,Gait Rehab Potential Rehab Potential Good Plan PT Intervention Plan Bed Mobility,Transfers,Gait, Therapeutic Exercise PT Plan Frequency BID Duration LOS Discharge Goals Bed Transfer Ability Minimal x 1 (25% assist) Sit to Stand Chair Transfer Ability Minimal x 1 (25% assist) Ambulation Assistive Device Rolling Walker Ambulation Distance (feet) 15 Discharge Plan PT Discharge Plan Pt is in significant pain with all mobility at this time and her mobility was obviously limited due to this. She should be able to return home once medically stable if her mobility improves as expected with less pain. G -code Required No Eval Complexity Eval Charge Codes 31746 - Moderate Complexity PHYSIC
--- NOTE | 2020-04-04 15:46 | HMH.PHAINT ---
MEDICATION RECONCILIATION COMPLETED ON PATIENT USING EXTERNAL FILL HISTORY FROM PHARMACY, LIST FORM [facility] OFFICE, AND PATIENT INTERVIEW. -MARLENY IBANEZD
--- NOTE | 2020-04-04 18:27 | PC.NURSE ---
SHE IS AOX4, ABLE TO MAKE NEEDS KNOWN TO STAFF, HAS BEEN MEDICATED FOR PAIN WITH MORPHINE PER MAR WITH GOOD EFFECTIVENESS NOTED. SHE HAS A PUREWICK IN PLACE TO PROMOTE PT COMFORT. SHE HAS DENIED ANY N/V/D BUT NO BM HAS BEEN NOTED THUS FAR. SHE TOLERATED DIET WELL. NO NEEDS A THIS TIME, WILL CONTINUE TO MONITOR.
--- NOTE | 2020-04-04 18:44 | PC.NURSE ---
JACKSON CORTEZ WAS PRESENT DURING ADMISSION AND COMPLETED MED REC
[2020-04-04 20:53] LABS: POC Glucose,Bedside 204 (70-110)
[2020-04-04 21:58] LABS: POC Glucose,Bedside 149 (70-110)
--- NOTE | 2020-04-05 03:05 | PC.NURSE ---
Pt is A&Ox4. Lung sounds CTA. No cough noted. Pt is tolerating RA appropriately w/ o2 sats >92%. Active bowel sounds in all 4 quads, no BM noted this shift. Purewick remains in place, pt is urinating clear, dark yellow urine. Pt has c/o back pain x1 this shift. Pt medicated per MAR. No other acute changes or complaints at this time.
[2020-04-05 04:00] VITALS: BP 130/71; PULSE 65; RESP 18; TEMP 36.7; O2SAT 92
[2020-04-05 04:57] VITALS: BMI 29.7
[2020-04-05 05:32] LABS: POC Glucose,Bedside 205 (70-110)
[2020-04-05 08:00] VITALS: BP 150/74; PULSE 64; RESP 18; TEMP 36.7; O2SAT 96
--- NOTE | 2020-04-05 08:44 | HMH.ACPN2 ---
Internal Medicine - PN: Subj *Date: 04/05/20 *Time: 08:44 Interval history: Patient feels a little better this morning after taking medication. Has not been out of bed this morning. Exam Vital signs and Labs for Last 24 Hours: Temp Pulse Resp BP Pulse Ox 98.1 F 64 18 150/74 H 96 04/05/20 08:00 04/05/20 08:00 04/05/20 08:00 04/05/20 08:00 04/05/20 08:00 Laboratory Results - last 24 hr 04/04/20 10:06: WBC 5.2, RBC 4.81, Hgb 14.3, Hct 43.9, MCV 91.3, MCH 29.7, MCHC 32.6, RDW 13.7, Plt Count 221, MPV 8.4, Neut % (Auto) 58.6, Lymph % (Auto) 31.9, Cowley % (Auto) 5.8, Eos % (Auto) 2.9, Baso % (Auto) 0.8, Neut # (Auto) 3.1, Lymph # (Auto) 1.7, Cowley # (Auto) 0.3, Eos # (Auto) 0.2, Baso # (Auto) 0.0 04/04/20 10:06: Sodium 140, Potassium 3.7, Chloride 103, Carbon Dioxide 34 H, Anion Gap 6.7, BUN 11, Creatinine 0.80, Estimated Creat Clear 68, Estimated GFR 70, Est GFR ( Amer) 85, Glucose 170 H, Calcium 9.7, Total Bilirubin 0.8, AST 23, ALT 17, Alkaline Phosphatase 87, Total Protein 7.7, Albumin 4.5, Globulin 3.2, Albumin/Globulin Ratio 1.4 04/04/20 10:10: Chlamy pneumoniae PCR Not detected, Adenovirus (PCR) Not detected, B. pertussis DNA (PCR) Not detected, Coronavirus OC43 (PCR) Not detected, Coronavirus HKU1 (PCR) Not detected, Coronavirus 229E (PCR) Not detected, SARS-CoV-2 (PCR) Not detected, Coronavirus NL63 (PCR) Not detected, Human Metapneumovir PCR Not detected, Influenza A (H1) PCR Not detected, Influ A (H1N1/09) PCR Not detected, Influenza A (H3) PCR Not detected, Influenza Type A (PCR) Not detected, Influenza Type B (PCR) Not detected, M. pneumoniae (PCR) Not detected, Parainfluenza 1 (PCR) Not detected, Parainfluenza 2 (PCR) Not detected, Parainfluenza 3 (PCR) Not detected, Parainfluenza 4 (PCR) Not detected, RSV (PCR) Not detected, Entero/Rhino (PCR) Not detected 04/04/20 17:28: POC Glucose 149 H 04/04/20 20:33: POC Glucose 204 H 04/05/20 05:16: POC Glucose 205 H Vital Signs - 24 hr 04/04/20 09:54 04/04/20 10:34 04/04/20 11:00 Temperature 98.5 F Pulse Rate Pulse Rate [Radial] 61 57 L 58 L Respiratory Rate 16 18 18 Blood Pressure Blood Pressure [Right Arm] 200/84 H 188/78 H 176/84 H 02 Sat by Pulse Oximetry 98 97 99 04/04/20 11:30 04/04/20 14:07 04/04/20 14:43 Temperature 98 F Pulse Rate 62 Pulse Rate [Radial] 54 L 60 Respiratory Rate 18 16 Blood Pressure 170/82 H Blood Pressure [Right Arm] 175/76 H 170/82 H 02 Sat by Pulse Oximetry 96 04/04/20 15:00 04/04/20 20:00 04/05/20 04:00 Temperature 98.3 F 98.1 F 98.0 F Pulse Rate Pulse Rate [Radial] 62 59 L 65 Respiratory Rate 20 17 18 Blood Pressure Blood Pressure [Right Arm] 126/55 L 143/63 H 130/71 02 Sat by Pulse Oximetry 96 92 L 92 L 04/05/20 08:00 Temperature 98.1 F Pulse Rate Pulse Rate [Radial] 64 Respiratory Rate 18 Blood Pressure Blood Pressure [Right Arm] 150/74 H 02 Sat by Pulse Oximetry 96 I & O for Last 24 hours: Intake & Output 04/02/20 04/03/20 04/04/20 04/05/20 23:59 23:59 23:59 23:59 Intake Total 120 / 600 960 / 960 Balance 120 / 600 960 / 960 Weight 181 lb 185 lb 5 oz - *Routine Respiratory Exam Present: CTA bilaterally - *Routine Cardiovascular Exam Present: RRR Assessment and Plan (1) Multiple transverse process fractures Status: Acute Category: Medical (2) Type 2 diabetes mellitus Status: Chronic Qualifiers: Diabetes mellitus sweet pickle maker insulin use: with sweet pickle maker use Diabetes mellitus complication status: with hyperglycemia Qualified Code(s): E11.65 - Type 2 diabetes mellitus with hyperglycemia; Z79.4 - teacher tutor (current) use of insulin Category: Medical Code(s): E11.9 - Type 2 diabetes mellitus without complications (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
[2020-04-05 11:48] LABS: POC Glucose,Bedside 255 (70-110)
[2020-04-05 15:17] VITALS: BP 156/61; PULSE 73; RESP 17; TEMP 36.7; O2SAT 96
--- NOTE | 2020-04-05 15:41 | PC.NURSE ---
SHE IS AOX4 ABLE TO MAKE NEEDS KNOWN TO STAFF, IS ABLE TO MAKE CHANGES IN BODY POSITION BUT STAFF HAS ASSISTED AT TIMES. SHE HAS SEVERE PAIN WHILE TURNING IN THE BED, SHE HAS BEEN TREATED WITH PAIN MEDICATIONS PER MAR WITH GOOD EFFECTIVENESS NOTED. PURE WICK REMAINS IN PLACE TO PROMOTE PT COMFORT. SPOKE WITH DR DAVIES REGARDING PT NEEDS UPON D.C INCLUDING BSC/ROLLING WALKER/SHOWER R/T TO SEVERE PAIN WITH AMBULATION AND INABILITY TO TOLERATE STANDING WITHOUT ASSISTANCE. SHE HAS TOLERATED RA WELL, HER ABD IS SOFT AND NON-TENDER, NO V/D NPTED BUT PT DID C/O NAUSEA FOLLOWING ADMIN OR PRN MORPHINE, SHE WAS TREATED WITH PRN ZOFRAN WITH GOOD EFFECTIVENESS. NO NEEDS AT THIS TIME. WILL CONTINUE TO MONITOR.
[2020-04-05 20:00] VITALS: BP 168/62; PULSE 58; RESP 18; TEMP 36.8; O2SAT 93
[2020-04-05 20:10] LABS: POC Glucose,Bedside 216 (70-110)
--- NOTE | 2020-04-05 21:41 | PC.NURSE ---
Patient's purewick came loose and brief and yogesh where saturated (large). Patient changed and cleaned up. New purewick in place.
[2020-04-05 22:27] LABS: POC Glucose,Bedside 215 (70-110)
[2020-04-06] VITALS: BP 172/66; PULSE 67; RESP 18; TEMP 36.8; O2SAT 91
--- NOTE | 2020-04-06 02:46 | PC.NURSE ---
No acute changes. Pt has c/o discomfort t/o night. PO medication administered first. Pt continued to c/o discomfort, therefore IV morphine was administered per apr. Pt has declined to have help with repositioning. States that she can move herself. VSS. Snack given. Lungs CTA. Purick in place to prevent soiling. Urine ouput good. No other concerns at this time. Will continue to monitor.
[2020-04-06 04:00] VITALS: BP 169/65; PULSE 72; RESP 16; TEMP 36.9; O2SAT 91
[2020-04-06 05:00] VITALS: BMI 28.8
[2020-04-06 06:05] LABS: POC Glucose,Bedside 216 (70-110)
[2020-04-06 07:50] VITALS: BP 174/77; PULSE 67; RESP 18; TEMP 36.9; O2SAT 93
--- NOTE | 2020-04-06 11:09 | P.PN_ITS ---
Internal Medicine - PN: Subj *Date: 04/06/20 *Time: 11:09 Interval history: Patient is in more pain today and has a lot of nausea. Exam Vital signs and Labs for Last 24 Hours: Temp Pulse Resp BP Pulse Ox 98.4 F 67 18 174/77 H 93 L 04/06/20 07:50 04/06/20 07:50 04/06/20 07:50 04/06/20 07:50 04/06/20 07:50 Laboratory Results - last 24 hr 04/05/20 11:19: POC Glucose 255 H 04/05/20 17:02: POC Glucose 215 H 04/05/20 19:56: POC Glucose 216 H 04/06/20 05:33: POC Glucose 216 H Vital Signs - 24 hr 04/05/20 15:17 04/05/20 20:00 04/06/20 00:00 Temperature 98.0 F 98.3 F 98.2 F Pulse Rate [Radial] 73 58 L 67 Respiratory Rate 17 18 18 Blood Pressure [Right Arm] 156/61 H 168/62 H 172/66 H 02 Sat by Pulse Oximetry 96 93 L 91 L 04/06/20 04:00 04/06/20 07:50 Temperature 98.5 F 98.4 F Pulse Rate [Radial] 72 67 Respiratory Rate 16 18 Blood Pressure [Right Arm] 169/65 H 174/77 H 02 Sat by Pulse Oximetry 91 L 93 L I & O for Last 24 hours: Intake & Output 04/03/20 04/04/20 04/05/20 04/06/20 23:59 23:59 23:59 23:59 Intake Total 120 / 600 1320 / 1320 600 / 600 Output Total 1300 / 1300 Balance 120 / 600 1320 / 320 -700 / -700 Weight 181 lb 185 lb 5 oz 179 lb 9 oz - Constitutional mild distress (due to pain) - *Routine Respiratory Exam Present: CTA bilaterally - *Routine Cardiovascular Exam Present: RRR Assessment and Plan (1) Multiple transverse process fractures Status: Acute Category: Medical (2) Type 2 diabetes mellitus Status: Chronic Qualifiers: Diabetes mellitus care home insulin use: with moth exterminator use Diabetes mellitus complication status: with hyperglycemia Qualified Code(s): E11.65 - Type 2 diabetes mellitus with hyperglycemia; Z79.4 - moth exterminator (current) use of insulin Category: Medical Code(s): E11.9 - Type 2 diabetes mellitus without complications (3) Degenerative joint disease (DJD) of lumbar spine Status: Chronic Qualifiers: Spinal osteoarthritis complication: with radiculopathy Qualified Code(s): M47.26 - Other spondylosis with radiculopathy, lumbar region Category: Medical Code(s): M47.816 - Spondylosis without myelopathy or radiculopathy, lumbar region (4) Muscle spasm Status: Acute Category: Medical Code(s): M62.838 - Other muscle spasm (5) Nausea Status: Acute Category: Medical Code(s): R11.0 - Nausea - Assessment and plan all Dx Assessment and Plan for all problems:: Continue symptomatic treatment.
[2020-04-06 15:25] VITALS: BP 175/70; PULSE 67; RESP 18; TEMP 37.1; O2SAT 95
[2020-04-06 16:51] LABS: POC Glucose,Bedside 219 (70-110)
[2020-04-06 16:51] LABS: POC Glucose,Bedside 180 (70-110)
--- NOTE | 2020-04-06 16:56 | PC.NURSE ---
SHE IS AOX4, ABLE TO MAKE NEEDS KNOWN TO STAFF, PUREWICK IN PLACE TO PROMOTE COMFORT, HAS REQUIRED PAIN MEDICATION AT FREQUENT INTERVALS THIS SHIFT, SHE HAS NOT REQUIRED O2 SUPPORT, TOLERATING DIET WELL, DID HAVE ONE EPISODE OF N/V, [id number] WITH PRN ZOFRAN PER MAR WITH GOOD EFFECTIVENESS NOTED, AT THIS TIME SHE IS VISITING WITH FAMILY, SHE AND FAMILY HAVE STATED THAT THEY ARE NOT COMFORTABLE WITH GOING HOME TONIGHT. SHE WAS NOT ABLE TO TOLERATE PT TODAY R/T PAIN. AT THIS TIME SHE STATES SHE IS COMFORTABLE. WILL CONTINUE TO MONITOR.
[2020-04-06 20:00] VITALS: BP 167/72; PULSE 69; RESP 16; TEMP 36.9; O2SAT 91
[2020-04-06 20:50] LABS: POC Glucose,Bedside 221 (70-110)
[2020-04-07] VITALS: BP 158/72; PULSE 77; RESP 16; TEMP 36.7; O2SAT 96
[2020-04-07 04:00] VITALS: BP 117/66; PULSE 74; RESP 16; TEMP 36.9; O2SAT 93
[2020-04-07 05:00] VITALS: BMI 28.7
--- NOTE | 2020-04-07 05:19 | PC.NURSE ---
No acute changes. Pt has slept at intervals this shift. Has c/o pain t/o shift. Medicated per apr. Pt has had difficulty with repositioning this shift. Bed bath given. VSS. No other concerns at this time. Will continue to monitor.
[2020-04-07 06:58] LABS: POC Glucose,Bedside 226 (70-110)
[2020-04-07 08:00] VITALS: BP 132/53; PULSE 69; RESP 18; TEMP 36.9; O2SAT 92
--- NOTE | 2020-04-07 08:55 | HMH.ACPN2 ---
<Magdalena Richter - Last Filed: 04/07/20 08:55> Internal Medicine - PN: Subj *Date: 04/07/20 *Time: 08:55 Interval history: Patient has severe pain with some movements and when getting out of bed. She is good this morning after receiving pain medicine. She has been nauseated. She was able to eat breakfast and so far so good. Bowels have not moved. She is voiding QS she has a pure wick in place. She denies chest pain and shortness of breath. Exam Vital signs and Labs for Last 24 Hours: Temp Pulse Resp BP Pulse Ox 98.5 F 69 18 132/53 L 92 L 04/07/20 08:00 04/07/20 08:00 04/07/20 08:00 04/07/20 08:00 04/07/20 08:00 Laboratory Results - last 24 hr 04/06/20 11:27: POC Glucose 219 H 04/06/20 16:26: POC Glucose 180 H 04/06/20 20:19: POC Glucose 221 H 04/07/20 06:48: POC Glucose 226 H I & O for Last 24 hours: Intake & Output 04/04/20 04/05/20 04/06/20 04/07/20 11:59 11:59 11:59 11:59 Intake Total 1080 / 1080 960 / 960 582 / 582 Output Total 1300 / 1300 900 / 900 Balance 1080 / 1080 -340 / -340 -318 / -318 Weight 190 lb 185 lb 5 oz 179 lb 9 oz 178 lb 8 oz - Constitutional no acute distress Comments: Appears comfortable at present. Lying on her back. Conversant. - *Routine Respiratory Exam Present: CTA bilaterally - *Routine Cardiovascular Exam Present: RRR - *Routine Abdominal Exam Present: soft, normoactive bowel sounds. Absent: tenderness - *Routine Extremities Exam Absent: edema, calf tenderness Comments: Can move legs without difficulty. 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 Physical therapy to see patient again today. <Abraham Larsen - Last Filed: 04/07/20 09:24> Internal Medicine - PN: Subj *Date: 04/07/20 *Time: 09:23 Exam Vital signs and Labs for Last 24 Hours: Temp Pulse Resp BP Pulse Ox 98.5 F 69 18 132/53 L 92 L 04/07/20 08:00 04/07/20 08:00 04/07/20 08:00 04/07/20 08:00 04/07/20 08:00 Laboratory Results - last 24 hr 04/06/20 11:27: POC Glucose 219 H 04/06/20 16:26: POC Glucose 180 H 04/06/20 20:19: POC Glucose 221 H 04/07/20 06:48: POC Glucose 226 H I & O for Last 24 hours: Intake & Output 04/04/20 04/05/20 04/06/20 04/07/20 23:59 23:59 23:59 23:59 Intake Total 120 / 600 1320 / 1320 942 / 942 240 / 240 Output Total 2200 / 2200 Balance 120 / 600 1320 / 320 -1258 / -1258 240 / 240 Weight 181 lb 185 lb 5 oz 179 lb 9 oz 178 lb 8 oz Assessment and Plan (1) Multiple transverse process fractures Status: Acute Category: Medical (2) Type 2 diabetes mellitus Status: Chronic Qualifiers: Diabetes mellitus halfway insulin use: with restaurant server use Diabetes mellitus complication status: with hyperglycemia Qualified
--- NOTE | 2020-04-07 09:54 | SW/DCPLANNER ---
PATIENT IS DISCHARGING HOME TODAY AND HAS CHOSEN [facility] THEIR HOME [facility]....SHE HAS ALL THE EQUIPMENT SHE NEEDS.. WILL DISCHARGE LATER IN THE DAY WITH HOME HEALTH SERVICES TO START IN THE AM...
[2020-04-07 11:00] LABS: POC Glucose,Bedside 239 (70-110)
--- NOTE | 2020-04-09 13:56 | HMH.DCSUM ---
General - General Admission date:: 04/04/20 Discharge date: 04/07/20 HPI HPI: Ms. Wright is a 71yo female who was brought in by ambulance from a fall. Patient says she stepped on ice and slipped while going out a door. She says she landed on her lower back. She complains of pain in her lower back on the right side around the area of the iliac crest and in her right hip. Denies other injuries. She has a history of some chronic back problems with sciatica for which she takes meloxicam. She says she recently completed physical therapy. (above as per ER physician) She had a work-up in the emergency room. An x-ray and CT of her hip showed no fracture. There was no acute fracture on her cervical spine CT. Her lumbar spine CT however showed nondisplaced fractures involving the right L1, L2, and L3 transverse processes. It also showed cholelithiasis with possible stones in the common duct and radiology felt a nonemergent MRCP may provide further evaluation. Her pelvic CT showed faint cortical lucency of the acetabulum anteriorly and superiorly and radiology felt this was an overlying osteophyte versus a nondisplaced fracture. It also showed a possible coccygeal fracture. The patient was admitted for pain control and physical therapy evaluation. Hospital Course Hospital Course: The patient was admitted for pain control and a PT consultation. She was seen by physical therapy and her mobility was limited due to significant pain. They felt she should be able to return home once medically stable if her mobility improved with less pain. She continued with some pain and nausea. Symptomatic treatment was continued. She had severe pain when getting out of bed, but felt better after receiving some pain medication. She was able to eat. She was stable to be discharged home with home health physical therapy and pain control. She already has a walker, bedside commode, and shower chair at her home. Objective Vital signs: Temp Pulse Resp BP Pulse Ox 98.5 F 69 18 132/53 L 92 L 04/07/20 08:00 04/07/20 08:00 04/07/20 08:00 04/07/20 08:00 04/07/20 08:00 Narrative: - Constitutional no acute distress - *Routine HEENT Exam Head: Present: normocephalic Eye: Present: EOMI, PERRL ENT: Present: mucous membranes dry - *Routine Neck Exam Present: supple. Absent: lymphadenopathy - *Routine Respiratory Exam Present: CTA bilaterally - *Routine Cardiovascular Exam Present: RRR - *Routine Abdominal Exam Present: soft, normoactive bowel sounds. Absent: tenderness - *Routine Extremities Exam Absent: cyanosis, clubbing, edema - Routine Back/Spine/Pelvis Exam Back/Spine: Present: vertebral tenderness (along the L-spine, pain with any movement) - *Routine Skin Exam Present: warm. Absent: rash - *Routine Neurological Exam Present: alert, oriented X3 DS: Diagnosis - Discharge Diagnosis (1) Multiple transverse process fractures Status: Acute (2) Type 2 diabetes mellitus Status: Chronic (3) Degenerative joint disease (DJD) of lumbar spine Status: Chronic (4) Muscle spasm Status: Acute (5) Nausea Status: Acute (6) Pain management Status: Acute Discharge Plan - Patient Discharge Instructions ACTIVITY: Continue current activity DIET: continue same diet Additional Instructions: Pt needs home health physical therapy and fci. Patient Instructions: DI for Transverse Process Fracture - Follow up Plan Follow up with: Abraham Larsen MD [Primary Care Provider] - 04/21/20 11:00 am Disposition: Home Health Service Home Medications: Home Medications Medication Instructions Recorded Confirmed Type Cholecalciferol (Vitamin D3) 1,000 unit PO DAILY 12/15/17 04/04/20 History [Vitamin D3 1,000 Unit Tab] atorvastatin 80 mg tablet 80 mg PO DAILY 06/18/19 04/04/20 History glipizide 5 mg tablet, extended 5 mg PO DAILY 06/18/19
== END 2020-04-07 14:30 | disposition home health service (06) ==
LOC: ER 10:18 → 2ND 04-05 07:21
PROVIDERS: Admitting Provider Family Medicine; Emergency Provider Emergency Medicine; PCP Family Medicine; Visit Provider Family Medicine
DX: S32.018A Other fracture of first lumbar vertebra, initial encounter for closed fracture (principal); S32.028A Other fracture of second lumbar vertebra, initial encounter for closed fracture; S32.038A Other fracture of third lumbar vertebra, initial encounter for closed fracture; W00.0XXA Fall on same level due to ice and snow, initial encounter; Y92.018 Other place in single-family (private) house as the place of occurrence of the external cause; E11.9 Type 2 diabetes mellitus without complications; Z79.4 Long term (current) use of insulin; M19.09 Primary osteoarthritis, other specified site
CPT/HCPCS: 72125; 72131; 72192; 73502; 73700; 80053; 82962; 85025; 87581; 87633; 87798; 96374; 96375; 97116; 97162; 97530; 97760; 99284; G0378; J2405

== ENCOUNTER → 2020-06-05 11:41 | Outpatient (CLI) | payer MEDICARE, SELFPAY ==
--- NOTE | 2020-06-05 11:49 | XR_ITS ---
PROCEDURE: XR LUMBAR SPINE MIN 4V CLINICAL INDICATION: BILATERAL BACK PAIN W/O SCIATICA COMPARISON: CR XR LUMBAR SPINE MIN 4V from 02/20/[address] LUMBAR SPINE WO CON from 04/04/2020 FINDINGS: Mild lumbar curvature convex right. Osteophyte formation is present at T11-T12 T12-L1 and L1-L2. The SI joints have an unremarkable appearance. No fracture or dislocation. No lytic or blastic change. IMPRESSION: Degenerative changes. No change with no acute finding Dictated by: Fabio Peña MD 06/05/2020 13:04 Fabio Peña MD in [place] 06/05/2020 13:04
== END ==
PROVIDERS: PCP Family Medicine; Visit Provider Family Medicine
DX: M54.5 Low back pain (principal); S32.000D Wedge compression fracture of unspecified lumbar vertebra, subsequent encounter for fracture with routine healing
CPT/HCPCS: 72110

== ENCOUNTER → 2020-07-07 09:26 | Outpatient (CLI) | payer MEDICARE, SELFPAY ==
--- NOTE | 2020-07-07 09:34 | US_ITS ---
PROCEDURE: US ABDOMEN LIMITED CLINICAL INDICATION: GALLSTONES COMPARISON: CT CT LUMBAR SPINE WO CON from 04/04/2020 FINDINGS: PANCREAS: The body and head of the pancreas have an unremarkable appearance. The tail the pancreas is not well visualized due to overlying bowel gas. LIVER: No focal liver lesions demonstrated. Homogeneous echogenicity. No intrahepatic biliary ductal dilatation evident. There is appropriate direction of blood flow within a non dilated portal vein RIGHT KIDNEY: Unremarkable. Normal size and echogenicity. No hydronephrosis GALLBLADDER: Gallbladder is slightly contracted. No obvious stones wall thickening or pericholecystic fluid. IMPRESSION: Slightly contracted gallbladder. No definite shadowing stones apparent. Previous CT scan demonstrated some small stones in the gallbladder with possible stones in the cystic duct which may not be well delineated by ultrasound. MRCP may provide further evaluation if clinically desired. Dictated by: Fabio Peña MD 07/07/2020 11:47 Fabio Peña MD in [place] 07/07/2020 11:47
== END ==
PROVIDERS: PCP Family Medicine; Visit Provider Family Medicine
DX: K80.20 Calculus of gallbladder without cholecystitis without obstruction (principal)
CPT/HCPCS: 76705

== ENCOUNTER → 2020-09-26 13:05 | Outpatient (CLI) | payer MEDICARE, SELFPAY ==
--- NOTE | 2020-09-26 13:08 | MM_ITS ---
PROCEDURE: MM DIG SCREENING MAMM BI W/CAD Digital Breast Tomosynthesis Included CLINICAL INDICATION: SCREENING COMPARISON: MG MA Mammogram Routine Screening Bilat from 10/28/2010 MG [facility] MM Dig screening mamm BI w/CAD from 11/21/2017 MG MM DIG SCREENING MAMM BI W/CAD from 09/27/2019 TECHNIQUE: Standard CC and MLO images and 3D Tomosynthesis was obtained. R2 CAD reviewed. FINDINGS: Mostly fatty replaced fibroglandular tissue. Bilateral benign-appearing calcifications. No suspicious appearing mass, malignant-appearing microcalcification, architectural distortion, or skin thickening. No change IMPRESSION: Benign findings, no evidence of malignancy BI-RAD Category: 2 Benign Finding FOLLOW-UP: 1 YR 1 Year Follow-up (A letter has been sent to the patient regarding results of the study.) Dictated by: Fabio Peña MD 10/09/2020 14:47 Fabio Peña MD in [place] 10/09/2020 14:47
== END ==
PROVIDERS: PCP Family Medicine; Visit Provider Family Medicine
DX: Z12.31 Encounter for screening mammogram for malignant neoplasm of breast (principal)
CPT/HCPCS: 77063; 77067

== ENCOUNTER → 2020-11-06 09:22 | Outpatient (CLI) | payer MEDICARE, SELFPAY | PROVIDERS: PCP Family Medicine; Visit Provider Family Medicine | DX: R10.84 Generalized abdominal pain (principal); K80.20 Calculus of gallbladder without cholecystitis without obstruction ==

== ENCOUNTER → 2020-11-13 09:18 | Outpatient (CLI) | payer MEDICARE, SELFPAY ==
--- NOTE | 2020-11-13 09:23 | MR_ITS ---
PROCEDURE INFORMATION: Exam: MR Abdomen Without Contrast Exam date and time: 11/13/2020 9:23 AM Age: 71 years old Clinical indication: Abdominal pain; Additional info: Generalized abdominal pain. Abd pain. Nausea and vomiting. Prior US 07-07-20 TECHNIQUE: Imaging protocol: MR of the abdomen without contrast. COMPARISON: US ABDOMEN LIMITED 07/07/2020 9:46 AM FINDINGS: Liver: No mass. Gallbladder and bile ducts: The gallbladder does not appear dilated on the present examination. There is no evidence of filling defect within the lumen of the gallbladder at this time. The common bile duct is 5 mm in diameter, within normal limits. Pancreas: Unremarkable. No ductal dilation. Spleen: Unremarkable. No splenomegaly. Adrenal glands: Unremarkable. No mass. Kidneys and ureters: Unremarkable. No solid mass. No hydronephrosis. Stomach and bowel: Visualized stomach and intestines are unremarkable. Intraperitoneal space: No free fluid. Arteries: No abdominal aortic aneurysm. Bones/joints: Unremarkable. Soft tissues: Unremarkable. IMPRESSION: 1. The extrahepatic biliary tree does not appear dilated. The mid common bile duct measures 5 mm in diameter, open (normal is less than 7 mm). 2. The gallbladder does not appear enlarged. There is no evidence of filling defect within the gallbladder at this time. 3. No evidence of mass within solid viscera of the abdomen.
== END ==
PROVIDERS: PCP Family Medicine; Visit Provider Family Medicine
DX: R10.84 Generalized abdominal pain (principal); K80.20 Calculus of gallbladder without cholecystitis without obstruction
CPT/HCPCS: 74181; 76376

== ENCOUNTER 2021-01-26 16:46 | Inpatient (IN) | payer MEDICARE, SELFPAY ==
[2021-01-26] VITALS (8 sets, daily range): BP systolic 125–161; BP diastolic 57–74; PULSE 86–98; RESP 16–98; TEMP 36.6–37.7; O2SAT 94–98; BMI 25.8; BMI 26.4
--- NOTE | 2021-01-26 16:59 | ECG_ITS ---
APPROVED REPORT Exam: Resting ECG HR:90 bpm ECG Measurements Heart Rate 90 AXES MO 150 P 36 QRSd 108 QRS -18 QT 366 T 73 QTc 447 Conclusion Normal sinus rhythm Normal ECG Electronically signed by : Artur Hubbard MD 01/26/2021 21:03:47
--- NOTE | 2021-01-26 17:06 | XR_ITS ---
PROCEDURE INFORMATION: Exam: XR Chest Exam date and time: 01/26/2021 5:06 PM Age: 71 years old Clinical indication: Shortness of breath; Additional info: Cough TECHNIQUE: Imaging protocol: XR of the chest. Views: 1 view. AP portable upright exam 5:20 p.m. COMPARISON: ABDOMEN WO CON 11/13/2020 9:35 AM FINDINGS: Lungs: Right middle lobe versus basilar consolidation or atelectasis, there is a wedge-shaped density obscuring the lower right heart border and mid right diaphragm, with some air bronchograms. Right infrahilar peribronchial thickening. No focal findings on the left. Overall normal lung volumes. Pleural spaces: Unremarkable. No significant pleural effusion. No pneumothorax. Heart/Mediastinum: The cardiac silhouette appears mildly enlarged, though accentuated by portable AP technique. Bones/joints: Osteopenia.There are spinal degenerative changes, with multilevel disc narrrowing and spondylosis. Acromioclavicular arthritis. Soft tissues: No acute findings in the soft tissues, as visualized. IMPRESSION: Suspect wedge shaped consolidation in the medial right middle lobe or right lung base, correlate for pneumonia.
[2021-01-26 17:10] LABS: Coronavirus 19, PCR Not Detected (NotDetected); Influenza A, PCR Not Detected (NotDetected); Influenza B, PCR Not Detected (NotDetected)
[2021-01-26 17:52] LABS: Alanine Aminotransferase 22 U/L (12-78); Albumin Level 3.6 g/dl (3.5-5.0); Albumin/Globulin Ratio 1.2 (1.1-1.8); Alkaline Phosphatase 96 U/L (38-126); Anion Gap 13.9 mEq/L (5-15); Aspartate Amino Transferase 23 U/L (14-36); Blood Urea Nitrogen 18 mg/dl (7-17); Calcium 9.1 mg/dl (8.4-10.2); Carbon Dioxide 24 mmol/L (22.0-30.0); Chloride 97 mmol/L (98-107); Creatinine Clearance Estimated 54 mL/min (50-200); Estimated Glomerular Filt Rate 49 ml/min (>60); GFR (African American) 59 ML/MIN (>60); Potassium 3.9 mmoL/L (3.5-5.1); Sodium 131 mmol/L (136-145); Total Protein,Serum 6.6 g/dl (6.3-8.2)
--- NOTE | 2021-01-26 17:57 | CT_ITS ---
PROCEDURE INFORMATION: Exam: CTA Chest With Contrast Exam date and time: 01/26/2021 5:57 PM Age: 71 years old Clinical indication: Abnormal findings; Patient HX: Shortness of breath, elevated d-dimer; Additional info: SOA TECHNIQUE: Imaging protocol: Computed tomographic angiography of the chest with contrast. 3D rendering (Not supervised by radiologist): MIP and/or 3D reconstructed images were created by the technologist. Radiation optimization: All CT scans at this facility use at least one of these dose optimization techniques: automated exposure control; mA and/or kV adjustment per patient size (includes targeted exams where dose is matched to clinical indication); or iterative reconstruction. Contrast material: ISOVUE 370; Contrast volume: 70 ml; Contrast route: INTRAVENOUS (IV); COMPARISON: CR XR CHEST PORTABLE 01/26/2021 5:17 PM FINDINGS: Pulmonary arteries: No acute pulmonary emboli. Aorta: No thoracic aortic aneurysm. No evidence of dissection in the chest. Atherosclerotic calcified plaques. Lungs: There are patchy consolidations in the right lower lobe, greatest in the posteromedial right lower lobe extending medially and inferiorly from the hilum, and focal consolidation at the mid-posterior right lung base. There is also a small focus of airspace disease in the right middle lobe of 1.6 cm series 5, image 70. There are some small, scattered hazy ground-glass opacities in the periphery of the right lung. Findings suggest pneumonia. Minimal subsegmental atelectasis in the left lung, but no consolidation or significant ground-glass disease on the left. Pleural spaces: Unremarkable. No significant pleural effusion. No pneumothorax. Heart: Upper normal cardiac size. No significant pericardial effusion. Coronary artery disease. Heart RV/LV ratio: RV/LV ratio approximate 0.95 within upper limits normal. There is no reflux of contrast into the IVC or hepatic veins to suggest right heart strain. Lymph nodes: Mild right mediastinal and perihilar lymphadenopathy. Bones/joints: There are spinal degenerative changes, with multilevel disc narrrowing and spondylosis. No acute appearing fracture or high-grade listhesis. Soft tissues: There are no soft tissue masses or fluid collections. Other findings: For abdomen findings, please see the abdomen-pelvis CT report. IMPRESSION: 1. No acute pulmonary emboli. 2. No thoracic aortic aneurysm or dissection. 3. Patchy consolidations predominantly in the posteromedial and basilar right lower lobe, minimally in the right middle lobe, with some additional ground-glass disease. Correlate for pneumonia. 4. Mild right mediastinal and hilar lymphadenopathy. 5. Coronary artery disease. 6. Additional nonemergency and chronic findings as above.
[2021-01-26 17:58] LABS: D-Dimer 0.97 ug/mL (0.0-0.5)
[2021-01-26 18:01] LABS: Glucose 451 mg/dl (74-100); Lactic Acid 2.9 mmol/L (0.7-2.1)
[2021-01-26 18:02] LABS: Lipase < 10 U/L (23-300)
--- NOTE | 2021-01-26 18:02 | PC.NURSE ---
LAB CALLED WITH CRITICAL GLUCOSE 456 AWARE
[2021-01-26 18:03] LABS: NT Pro Brain Natriuretic Pep. 1930 pg/mL (0-125)
--- NOTE | 2021-01-26 18:03 | PC.NURSE ---
LAB DRAWING BLOOD CULTURES NOW
[2021-01-26 18:06] LABS: Troponin I 0.04 ng/ml (0.00-0.034)
--- NOTE | 2021-01-26 18:08 | CT_ITS ---
PROCEDURE INFORMATION: Exam: CT Abdomen And Pelvis With Contrast Exam date and time: 01/26/2021 6:08 PM Age: 71 years old Clinical indication: Abdominal pain; Generalized; Additional info: Abd pain TECHNIQUE: Imaging protocol: Computed tomography of the abdomen and pelvis with contrast. 3D rendering (Not supervised by radiologist): MIP and/or 3D reconstructed images were created by the technologist. Radiation optimization: All CT scans at this facility use at least one of these dose optimization techniques: automated exposure control; mA and/or kV adjustment per patient size (includes targeted exams where dose is matched to clinical indication); or iterative reconstruction. Contrast material: ISOVUE; Contrast volume: 70 ml; Contrast route: IV; COMPARISON: MR ABDOMEN WO CON 11/13/2020 9:35 AM FINDINGS: Liver: No hepatomegaly. No mass. Gallbladder and bile ducts: There is some dense material along the posterior wall of the gallbladder fundus, series 4, images 174-184 and sagittal series 7, images 25-27. This could be dense sludge or tiny particulate stones, versus dense polyps. There is no pericolic edema fluid or significant gallbladder wall thickening to suggest acute cholecystitis. The biliary tree is within normal limits for age. No calcified ductal stones. Pancreas: Prominent fatty atrophic changes in the pancreas, likely age related. The previous MRI of 11/13/2020 shows multiple tiny cystic lesions scattered through the pancreas, which are not as well seen on this CT. The most prominent lesion visible on today's CT is in the distal body of pancreas measuring approximately 1.1 x 0.8 x 0.8 cm on this study, series 4, images 122-128 and sagittal series 7, image 56. This appears more prominent on the previous MRI from 11/13/2020, measuring approximately 1.6 x 0.7 cm diameter series 8, image 17, likely due to imaging the lesion in slightly different planes. On the MRI, there is possible communication of some of these tiny cysts with the pancreatic duct not as well seen on CT. Non emergent pancreas protocol MRI with and without contrast for follow-up would be more accurate. There is also some dense calcification within a pancreas head cystic lesion suggested on axial series 3, images 335-342. No precontrast images are available to compare. Spleen: Upper normal spleen. No mass. Adrenal glands: The adrenal glands are normal. Kidneys and ureters: The kidneys are normal. The ureters are normal. Stomach and bowel: Question surgical clips versus other metallic density at the tip of cecum.There is diverticulosis coli, without evidence of acute diverticulitis.There is no evidence of intestinal perforation or obstruction. The stomach is normal. Appendix: No findings of appendicitis. Structure believed to be the appendix appears normal series 4, image 311 up to 5 mm diameter. Intraperitoneal space: There is no free intraperitoneal air. There is no significant free intraperitoneal fluid. Vasculature: The vasculature demonstrates scattered mild atherosclerotic calcification. There is no aortic aneurysm. No portal venous gas. Lymph nodes: No significantly enlarged lymph nodes by short axis criteria. Urinary bladder: The bladder is normal. Reproductive: Nodular uterine contours with likely 3.1 cm fundal fibroid containing some calcifications series 4, image 370. Likely small exophytic calcified fibroid in the posterior lower uterine segment on the left series 4, image 392. Adnexa are unremarkable as visualized. Bones/joints: Osteopenia. There are spinal degenerative changes, with multilevel disc narrrowing and spondylosis. Lower lumbar facet arthropathy. Hip deg
--- NOTE | 2021-01-26 18:18 | HMH.EDGENADL ---
ED Disposition Clinical Impression: Left lower lobe pneumonia Disposition: Admitted As Inpatient Condition on Discharge: Fair - Critical Care Critical Care Time: Yes (Sepsis, multiorgan failure) Attestation: On 01/26/21, the high probability of a clinically significant, sudden or life threatening deterioration of the following system(s) required my full and direct attention, intervention and personal management. The time I documented below is in addition to time spent performing reported procedures but includes the following listed in this critical care notation. Patient was critically ill, met criteria for sepsis, had evidence of multiorgan failure with respiratory distress, elevated lactate. Required fluid resuscitation, early antibiotic coverage, frequent repeat assessments. Vital system(s) involved:: Respiratory Failure, Shock (Septic) My critical care processes included: Assessment & monitoring of V/S, Initial and Re-exams, Data Review/Interpretation, Coordinating Care, Medication Orders and management, Documentation Medical Decision Making - Medical Records Medical records reviewed: Yes: I reviewed the patient's medical records. - Suresh Inquiry Pt receiving controlled substance: No Vital Signs: 01/26/21 16:47 01/26/21 17:30 01/26/21 18:00 Temperature 98 F Temperature Source Oral Pulse Rate 90 89 Pulse Rate [Radial] 98 H Respiratory Rate 16 20 18 Blood Pressure 149/72 H 131/66 Blood Pressure [Right Arm] 129/61 Blood Pressure Mean 97 101 Blood Pressure Mean [Right Arm] 83 Blood Pressure Position [Right Arm] Sitting 02 Sat by Pulse Oximetry 98 94 L 94 L Oxygen Delivery Method Room Air Oxygen Flow Rate (LPM) 01/26/21 19:00 01/26/21 19:30 01/26/21 22:01 Temperature 98.6 F Temperature Source Oral Pulse Rate 88 88 86 Pulse Rate [Radial] Respiratory Rate 17 18 98 H Blood Pressure 125/57 L 133/58 L 147/61 H Blood Pressure [Right Arm] Blood Pressure Mean Blood Pressure Mean [Right Arm] Blood Pressure Position [Right Arm] 02 Sat by Pulse Oximetry 98 96 Oxygen Delivery Method Nasal Cannula Nasal Cannula Nasal Cannula Oxygen Flow Rate (LPM) 3 3 2 - Lab Data Lab Results 01/26/21 17:07: SARS-CoV-2 (PCR) Not detected, Influenza A Untype (PCR) Not detected, Influenza Type B (PCR) Not detected 01/26/21 17:16: VBG pH 7.38, VBG pCO2 34.6 L, VBG pO2 59.4 H, VBG HCO3 19.9 L, VBG Total CO2 21.0 L, VBG O2 Saturation 90.6 H, VBG Base Excess -5.2 L 01/26/21 17:30: WBC 16.3 H, RBC 3.77 L, Hgb 11.5 L, Hct 34.8 L, MCV 92.4, MCH 30.5, MCHC 33.0, RDW 13.2, Plt Count 132 L, MPV 11.4 H, Neut % (Auto) 89.6 H, Lymph % (Auto) 4.7 L, [place] % (Auto) 4.5, Eos % (Auto) 0.5, Baso % (Auto) 0.8, Neut # (Auto) 14.6 H, Lymph # (Auto) 0.8, [place] # (Auto) 0.7, Eos # (Auto) 0.1, Baso # (Auto) 0.1, Total Counted 100, Neutrophils % (Manual) 90 H, Band Neutrophils % 2.0, Lymphocytes % (Manual) 4 L, Monocytes % (Manual) 4, Platelet Estimate Slight decrease, RBC Morphology Normal 01/26/21 17:30: Sodium 131 L, Potassium 3.9, Chloride 97 L, Carbon Dioxide 24, Anion Gap 13.9, BUN 18 H, Creatinine 1.10 H, Estimated Creat Clear 54, Estimated GFR 49 L, Est GFR ( Amer) 59, Glucose 451 H*, Calcium 9.1, Total Bilirubin 2.0 H, AST 23, ALT 22, Alkaline Phosphatase 96, Troponin I 0.04 H, Total Protein 6.6, Albumin 3.6, Globulin 3.0, Albumin/Globulin Ratio 1.2 01/26/21 17:30: Lactate 2.9 H 01/26/21 17:30: Lipase < 10 L 01/26/21 17:30: D-Dimer 0.97 H 01/26/21 17:30: NT-Pro-B Natriuret Pep 1930 H 01/26/21 17:30: PT 12.4, INR 1.11 H 01/26/21 17:30: Acetone Level Small 01/26/21 18:16: Urine Color Yellow, Urine Appearance Sl cloudy, Urine pH 6.0, Ur Specific [place] 1.015, Urine Protein Trace, Urine Glucose (UA) 3+, Urine Ketones 1+, Urine Blood Trace-i, Urine Nitrate Negative, Urine Bilirubin Negative, Urine Urobilinogen 0.2, Ur Leukocyte Esterase Negative, Urine RBC 3-5, Urine WBC 3-5, Ur Squamous Epith Cells None, Urine Bacteria 3
[2021-01-26 18:20] LABS: Acetone, Serum (Rapid) Small (None Detect)
[2021-01-26 18:23] LABS: Microscopic, Urine URINE MICROSCOPIC (MICROSCOPIC)
[2021-01-26 18:24] LABS: INR 1.11 (0.9-1.1); Prothrombin Time 12.4 seconds (10.1-12.5)
[2021-01-26 18:25] LABS: Appearance,Urine SL CLOUDY (Clear); Bilirubin,Urine Negative (Negative); Blood, Urine TRACE-I (Negative); Color,Urine YELLOW (Yellow); Glucose,Urine (UA) 3+ (Negative); Ketones,Urine 1+ (Negative); Leukocyte Esterase,Urine Negative (Negative); Nitrate,Urine Negative (Negative); Protein,Urine TRACE (Negative); Specific Gravity, Urine 1.015 (1.005-1.030); Urobilinogen,Urine 0.2 EU/dl (0.2)
--- NOTE | 2021-01-26 18:27 | PC.NURSE ---
PT GOING TO CT
--- NOTE | 2021-01-26 18:32 | PC.NURSE ---
PT GONE TO CT
[2021-01-26 18:41] LABS: VBG Base Excess -5.2 mmol/L (-2.4-2.3); VBG HCO3 19.9 mmol/L (23-30); VBG Oxygen Saturation 90.6 % (50-70); VBG PCO2 34.6 mmol/L (35-51); VBG PH 7.38 mmol/L (7.31-7.41); VBG PO2 59.4 mmol/L (28-40)
[2021-01-26 18:50] LABS: Basophils # 0.1 K/mm3 (0-0.2); Basophils % 0.8 % (0.1-2.0); Eosinophils # 0.1 K/mm3 (0.0-0.4); Eosinophils % 0.5 % (0.1-12.0); Hematocrit 34.8 % (37.0-47.0); Hemoglobin 11.5 g/dL (12.2-16.2); Lymphocytes # 0.8 K/mm3 (0.7-4.5); Lymphocytes % 4.7 % (10-50); Mean Corpuscular Hemoglobin 30.5 pg (27.0-31.2); Mean Corpuscular Volume 92.4 fl (81-99); Mean Platelet Volume 11.4 fl (7.4-10.4); Monocytes # 0.7 K/mm3 (0.1-1.0); Monocytes % 4.5 % (1.7-9.3); Neutrophils # 14.6 K/mm3 (1.8-7.8); Neutrophils % 89.6 % (37.0-80.0); Platelet Count 132 K/mm3 (142-424); Red Blood Count 3.77 M/mm3 (4.20-5.40); Red Cell Distribution Width 13.2 % (11.5-17.5); White Blood Count 16.3 K/mm3 (4.8-10.8)
[2021-01-26 18:53] LABS: Bacteria,Urine 3+ /lpf
[2021-01-26 18:53] LABS: MANUAL DIFFERENTIAL MANUAL DIFFERENTIAL (MANUAL DIFF)
--- NOTE | 2021-01-26 18:59 | PC.NURSE ---
PULSE OX 91% RA, O2 3L APPLIED PER NC
[2021-01-26 19:06] LABS: Lymphocytes % 4 % (10-50); Monocytes % 4 % (2-9); Neutrophils % 90 % (42-76); Platelet Estimate Slight Decrease; RBC Morphology Normal; Total Cells Counted 100
--- NOTE | 2021-01-26 20:15 | PC.NURSE ---
paged dr wood @ this time
[2021-01-26 20:26] LABS: Troponin I 0.03 ng/ml (0.00-0.034)
[2021-01-26 21:38] LABS: Reflex Lactic Add Lactic Reflex
--- NOTE | 2021-01-26 22:16 | PC.NURSE ---
patient up to floor via stretcher @ this time.
[2021-01-26 22:18] LABS: Lactic Acid Follow Up (RFLX 1) 2.1 mmol/L (0.7-2.1)
[2021-01-26 23:27] LABS: Reflex Lactic (2 hrs) Add Lactic Reflex
[2021-01-27] VITALS (11 sets, daily range): BP systolic 115–160; BP diastolic 49–72; PULSE 70–92; RESP 16–22; TEMP 36.6–37.5; O2SAT 92–98; BMI 26.4
[2021-01-27 00:10] LABS: Lactic Acid Follow up (RFLX 2) 2.5 mmol/L (0.7-2.1)
--- NOTE | 2021-01-27 05:15 | PC.NURSE ---
Pt is A/o x4. Remains on 2L NC with o2 94-97%. Pt voiced x1 nausea, admin meds per MAR with relief. Pt has a persistent productive cough t/o shift. Call tapia within reach.
[2021-01-27 07:00] LABS: POC Glucose,Bedside 442 (70-110)
--- NOTE | 2021-01-27 07:24 | HMH.PHAVTE ---
[facility] VTE Monitoring - Patient Demographics Admission date: 01/27/21 Report Date: 01/27/21 Time: 07:24 Allergies/Adverse Reactions: Patient Allergies codeine Allergy (Intermediate, Verified 01/26/21 22:54) Height: 1.7 m Weight: 76.229 kg Patient Problems: Current Active Problems Left lower lobe pneumonia (Acute) - VTE Risk Labs: VTE Related Lab Results Hgb 11.5 g/dL (12.2-16.2) L 01/26/21 17:30 Hct 34.8 % (37.0-47.0) L 01/26/21 17:30 Plt Count 132 K/mm3 (142-424) L 01/26/21 17:30 PT 12.4 seconds (10.1-12.5) 01/26/21 17:30 INR 1.11 (0.9-1.1) H 01/26/21 17:30 BUN 18 mg/dl (7-17) H 01/26/21 17:30 Creatinine 1.10 mg/dl (0.52-1.04) H 01/26/21 17:30 Estimated Creat Clear 54 mL/min (50-200) 01/26/21 17:30 Clinical Trial Participant: No - Prophylaxis VTE Prophylaxis Ordered?: Yes Types of VTE Prophylaxis: TEDS Knee High
--- NOTE | 2021-01-27 08:16 | HMH.PHACONS ---
- Pharmacy Consult Date: 01/27/21 Time: 08:17 Referring provider: N Reason for Consult:: VANCOMYCIN DOSING CONSULT Allergies and ADEs:: Allergies Allergy/AdvReac Type Severity Reaction Status Date / Time codeine Allergy Intermediate Verified 01/26/21 22:54 Home Medications:: Home Medications Medication Instructions Recorded Confirmed Type Cholecalciferol (Vitamin D3) 1,000 unit PO DAILY 12/15/17 01/27/21 History [Vitamin D3 1,000 Unit Tab] atorvastatin 80 mg tablet 80 mg PO DAILY 06/18/19 01/26/21 History glipizide 5 mg tablet, extended 5 mg PO DAILY 06/18/19 01/27/21 History release 24 hr insulin human U-100 NPH-regulr 60 unit SQ DAILY ml 12/27/19 01/27/21 History 70-30 mix 100 unit/mL subcutaneous susp Fluticasone Propionate 1 spray NS DAILYP PRN 04/04/20 01/27/21 History Insulin NPH Hum/Reg Insulin Hm 50 units SQ HS 04/04/20 01/27/21 History [Relion Novolin 70-30 Vial] Meclizine HCl 25 mg PO TIDP PRN 04/04/20 01/27/21 History Meloxicam [Mobic 7.5mg Tab] 7.5 mg PO BID 04/04/20 01/27/21 History Tramadol HCl [Tramadol 50mg 50 mg PO Q6HP PRN #30 tab 04/07/20 01/26/21 Rx Tab] diazePAM [Valium 2mg tablet] 2 mg PO Q6HP PRN #20 tab 04/07/20 01/27/21 Rx Famotidine 40 mg PO DAILY 01/27/21 01/27/21 History Height: 1.7 m Weight: 76.229 kg Laboratory Results:: Laboratory Results - last 24 hr 01/26/21 17:07: SARS-CoV-2 (PCR) Not detected, Influenza A Untype (PCR) Not detected, Influenza Type B (PCR) Not detected 01/26/21 17:16: VBG pH 7.38, VBG pCO2 34.6 L, VBG pO2 59.4 H, VBG HCO3 19.9 L, VBG Total CO2 21.0 L, VBG O2 Saturation 90.6 H, VBG Base Excess -5.2 L 01/26/21 17:30: WBC 16.3 H, RBC 3.77 L, Hgb 11.5 L, Hct 34.8 L, MCV 92.4, MCH 30.5, MCHC 33.0, RDW 13.2, Plt Count 132 L, MPV 11.4 H, Neut % (Auto) 89.6 H, Lymph % (Auto) 4.7 L, [place] % (Auto) 4.5, Eos % (Auto) 0.5, Baso % (Auto) 0.8, Neut # (Auto) 14.6 H, Lymph # (Auto) 0.8, [place] # (Auto) 0.7, Eos # (Auto) 0.1, Baso # (Auto) 0.1, Total Counted 100, Neutrophils % (Manual) 90 H, Band Neutrophils % 2.0, Lymphocytes % (Manual) 4 L, Monocytes % (Manual) 4, Platelet Estimate Slight decrease, RBC Morphology Normal 01/26/21 17:30: Sodium 131 L, Potassium 3.9, Chloride 97 L, Carbon Dioxide 24, Anion Gap 13.9, BUN 18 H, Creatinine 1.10 H, Estimated Creat Clear 54, Estimated GFR 49 L, Est GFR ( Amer) 59, Glucose 451 H*, Calcium 9.1, Total Bilirubin 2.0 H, AST 23, ALT 22, Alkaline Phosphatase 96, Troponin I 0.04 H, Total Protein 6.6, Albumin 3.6, Globulin 3.0, Albumin/Globulin Ratio 1.2 01/26/21 17:30: Lactate 2.9 H 01/26/21 17:30: Lipase < 10 L 01/26/21 17:30: D-Dimer 0.97 H 01/26/21 17:30: NT-Pro-B Natriuret Pep 1930 H 01/26/21 17:30: PT 12.4, INR 1.11 H 01/26/21 17:30: Acetone Level Small 01/26/21 18:16: Urine Color Yellow, Urine Appearance Sl cloudy, Urine pH 6.0, Ur Specific [place] 1.015, Urine Protein Trace, Urine Glucose (UA) 3+, Urine Ketones 1+, Urine Blood Trace-i, Urine Nitrate Negative, Urine Bilirubin Negative, Urine Urobilinogen 0.2, Ur Leukocyte Esterase Negative, Urine RBC 3-5, Urine WBC 3-5, Ur Squamous Epith Cells None, Urine Bacteria 3+ 01/26/21 19:43: Troponin I 0.03 01/26/21 21:37: Lactate 2.1 01/26/21 23:50: Lactate 2.5 H 01/27/21 05:35: POC Glucose 442 H* Medical History: Reports:: Diabetes Mellitus Type 2, Hyperlipidemia Denies:: Cancer, Diabetes Mellitus Type 1, MRSA Assessment and Plan - Assessment and plan all Dx Assessment and Plan for all problems:: Pharmacokinetic dosing service Objective: Age: 71 yo Serum creatinine: 1.1 mg/dL Height: 66.9 Inches Weight (kg): 76.229 Diagnosis: PNEUMONIA Assessment: IBW (kg): 61.37 Dosing wt(kg): 76.229 Estimated Creatinine clearance (ml/min): 44.1 CRCL method: Cockcroft and Gault using ibw(default). Drug selected: Vancomycin Loading dose (mg): Vd (liter
--- NOTE | 2021-01-27 09:14 | HMH.HP ---
*Admission Date: 01/27/21 <Magdalena Richter - 01/27/21 09:39> *Chief complaint: Shortness of breath and cough. <Magdalena Richter - 01/27/21 09:39> *History of present illness: Ms. Wright is a 71-year-old female with a history of TIA, type 2 diabetes mellitus, diabetic neuropathy, hyperlipidemia, and peripheral vascular disease who presented to [facility] emergency room for evaluation after become progressively short of breath and with an increase in a productive cough.. She stated that it began Tuesday a.m. after participating in outside parade the previous night. She developed a cough at that time. She did go on an outing to the [place] [employer] with family and went to voodoo the following day on Tuesday. She was unable to eat and drink much if anything at all. She stayed in the bed yesterday on 01/26/2021. With the progression of her symptoms she did present to the ER. She does have some chest discomfort in her lower rib cage anteriorly. She did describe some hemoptysis, fever, nausea and vomiting, as well as nasal drainage and sore throat. She states she feels that she retained her medications. Her blood sugars have been less than 200 at home. In the emergency room she was given a fluid bolus and also received IV vancomycin, cefepime, Flagyl, doxycycline, Rocephin. CTA of the chest revealed the following: IMPRESSION: 1. No acute pulmonary emboli. 2. No thoracic aortic aneurysm or dissection. 3. Patchy consolidations predominantly in the posteromedial and basilar right lower lobe, minimally in the right middle lobe, with some additional ground-glass disease. Correlate for pneumonia. 4. Mild right mediastinal and hilar lymphadenopathy. 5. Coronary artery disease. 6. Additional nonemergency and chronic findings as above. Abdominal/pelvis CT showed the following IMPRESSION: 1. Dense layering sludge or particulate gallstones, no CT findings of acute cholecystitis or biliary obstruction. 2. Atrophic pancreas containing multiple small cystic lesions as discussed above, including a complex partially calcified cyst, and cyst in the distal body of pancreas which measures up to 1.6 cm on the previous MRI exam. No pancreatic ductal dilatation. Reimaging every 6 months for 2 years, then every 1 year for 2 years, then every 2 years for 6 years is recommended. (this could be performed with pancreas protocol MRI with and without contrast.) Alternatively, endoscopic ultrasound with fine needle aspiration could be performed. (Reference: Artemio, 2017) . No further imaging follow-up indicated after age 80. 3. Uterine fibroids. 4. There is diverticulosis coli, without evidence of acute diverticulitis. 5. Right lower and middle lobe pneumonia, please see the chest CTA report. 6. Additional nonemergency and chronic findings as above. Laboratory data did reveal an elevated white blood cell count of 16,300 with a hemoglobin of 11.5 hematocrit 34.8. Gases show pH 7.38 PCO2 of 34.6 PO2 of 59.4 and a bicarb of 19.9. Chemistries revealed a sodium of 131 potassium 3.9 BUN is 18 creatinine is 1.10 blood sugar was elevated at 451 and lactate was slightly elevated at 2.9. Troponin I was 0.04 and 0.03 BNP was elevated at 1930. Patient states she feels much better today. She would like to try breakfast. She is only slightly nauseated. The chest discomfort is very minimal. She is somewhat short of breath. <Magdalena Richter 01/27/21 09:39> [facility] History Medical History: Reports:: Diabetes Mellitus Type 2, Hyperlipidemia, Peripheral Vascular Disease, Transient Ischemic Attacks (TIA) Denies:: Cancer, Diabetes Mellitus Type 1, MRSA <Magdalena Richter 01/27/21 09:39> *Have you ever received a pneumonia vaccine?: Yes <Magdalena Richter 01/27/21 09:39> *Have you received a flu vaccine this season?: No <Magdalena Richter 01/27/21 09:39> Other Medical History: Reports: Arthritis, Cataracts <Magdalena Richter 01/27/21 09:39> [facility]
--- NOTE | 2021-01-27 09:31 | HMH.PHAINT ---
Medication history confirmed with [facility], [facility], and Dr King office.
[2021-01-27 12:04] LABS: POC Glucose,Bedside 467 (70-110)
--- NOTE | 2021-01-27 12:05 | PC.NURSE ---
Spoke with Dr. Larsen and made him aware pt's blood glucose was 467. He ordered 40 units x 1 humalog.
[2021-01-27 16:19] LABS: POC Glucose,Bedside 98 (70-110)
--- NOTE | 2021-01-27 18:50 | PC.NURSE ---
Pt alert and oriented and able to make needs known. RR even and unlabored. Pt 95% on RA and in NAD. Has been up to shower this shift. Received orders for tessalon perles and robitussin r/t cough. Pt has c/o of tailbone pain and been given prn tylenol. CB in reach and family at bedside.
[2021-01-27 20:33] LABS: POC Glucose,Bedside 106 (70-110)
[2021-01-28] VITALS (11 sets, daily range): BP systolic 112–163; BP diastolic 53–73; PULSE 73–102; RESP 16–22; TEMP 36.8–37.6; O2SAT 85–98; BMI 27.0; BMI 26.9
[2021-01-28 05:25] LABS: POC Glucose,Bedside 164 (70-110)
--- NOTE | 2021-01-28 06:06 | PC.NURSE ---
Pt is a/o x3. Pt rested well thus far this shift. Pt voiced x1 of pain in tailbone, admin meds per MAR. Pt O2 started to drop to mid 80's, placed pt on 2L NC and maintaining O2 >90%. Pt voiced no c/o of N/V. Call tapia within reach.
[2021-01-28 06:48] LABS: Basophils % 0.3 % (0.1-2.0); Eosinophils # 0.2 K/mm3 (0.0-0.4); Eosinophils % 1.7 % (0.1-12.0); Hematocrit 36.3 % (37.0-47.0); Hemoglobin 11.7 g/dL (12.2-16.2); Lymphocytes # 1.7 K/mm3 (0.7-4.5); Lymphocytes % 13.8 % (10-50); Mean Corpuscular HGB Conc 32.3 g/dL (31.8-35.4); Mean Corpuscular Volume 92.9 fl (81-99); Mean Platelet Volume 9.6 fl (7.4-10.4); Monocytes # 0.4 K/mm3 (0.1-1.0); Monocytes % 3.4 % (1.7-9.3); Neutrophils # 9.7 K/mm3 (1.8-7.8); Neutrophils % 80.8 % (37.0-80.0); Platelet Count 236 K/mm3 (142-424); Red Blood Count 3.91 M/mm3 (4.20-5.40); Red Cell Distribution Width 13.4 % (11.5-17.5)
--- NOTE | 2021-01-28 08:02 | HMH.ACPN2 ---
<Magdalena Richter - Last Filed: 01/28/21 08:02> Internal Medicine - PN: Subj *Date: 01/28/21 *Time: 08:02 Interval history: Does not feel as well today. States she is weak. She continues with a productive cough. She is short of breath. Her appetite is diminished. She has been out of bed and has ambulated in the room. She has had a low-grade fever. Laboratory data this morning CBC with decrease in white blood cell count to 12,000 with a hemoglobin of 11.7 hematocrit 36.3. Blood sugars have been stable. Exam Vital signs and Labs for Last 24 Hours: Temp Pulse Resp BP Pulse Ox 99.6 F 78 19 163/67 H 95 01/28/21 04:00 01/28/21 06:14 01/28/21 04:00 01/28/21 04:00 01/28/21 06:14 Laboratory Results - last 24 hr 01/27/21 11:19: POC Glucose 467 H* 01/27/21 15:39: POC Glucose 98 01/27/21 20:21: POC Glucose 106 01/28/21 05:14: POC Glucose 164 H 01/28/21 05:55: WBC 12.0 H D, RBC 3.91 L, Hgb 11.7 L, Hct 36.3 L, MCV 92.9, MCH 30.0, MCHC 32.3, RDW 13.4, Plt Count 236 D, MPV 9.6, Neut % (Auto) 80.8 H, Lymph % (Auto) 13.8, [place] % (Auto) 3.4, Eos % (Auto) 1.7, Baso % (Auto) 0.3, Neut # (Auto) 9.7 H, Lymph # (Auto) 1.7, [place] # (Auto) 0.4, Eos # (Auto) 0.2, Baso # (Auto) 0.0 I & O for Last 24 hours: Intake & Output 01/25/21 01/26/21 01/27/21 01/28/21 11:59 11:59 11:59 11:59 Intake Total 2620 / 2620 780 / 780 Output Total 0 / 0 Balance 2620 / 2620 780 / 780 Weight 168 lb 0.9 oz 172 lb 4.8 oz Microbiology Reports for the Last 24 Hours: Microbiology 01/26/21 18:16 Urine,Catheterized Urine Culture - Preliminary NO GROWTH AFTER 24 HOURS 01/27/21 13:50 Sputum - Expectorated Sputum Gram Stain - Final - Constitutional no acute distress Comments: Assist with exam. - *Routine Respiratory Exam Present: crackles (Throughout on the right. Diminished breath sounds on the left), diminished air movement - *Routine Cardiovascular Exam Present: RRR - *Routine Abdominal Exam Present: soft, normoactive bowel sounds. Absent: tenderness - *Routine Extremities Exam Absent: edema, calf tenderness - *Routine Neurological Exam Present: alert, oriented X3 Assessment and Plan (1) CAP (community acquired pneumonia) Status: Acute Qualifiers: Laterality: right Category: Medical Code(s): J18.9 - Pneumonia, unspecified organism (2) Right middle lobe pneumonia Status: Acute Category: Medical Code(s): J18.9 - Pneumonia, unspecified organism (3) Right lower lobe pneumonia Status: Acute Category: Medical Code(s): J18.9 - Pneumonia, unspecified organism (4) Renal insufficiency Status: Acute Category: Medical Code(s): N28.9 - Disorder of kidney and ureter, unspecified (5) Type 2 diabetes mellitus Status: Chronic Qualifiers: Diabetes mellitus custodial insulin use: with long term acute care registered nurse use Diabetes mellitus complication status: with hyperglycemia Qualified Code(s): E11.65 - Type 2 diabetes mellitus with hyperglycemia; Z79.4 - technician terminal and repeater (current) use of insulin Category: Medical Code(s): E11.9 - Type 2 diabetes mellitus without complications (6) Anemia Status: Acute Category: Medical Code(s): D64.9 - Anemia, unspecified (7) Dehydration Status: Acute Category: Medical Code(s): E86.0 - Dehydration (8) ARIANA (acute kidney injury) Status: Acute Category: Medical Code(s): N17.9 - Acute kidney failure, unspecified (9) Elevated serum lactate dehydrogenase Status: Acute Category: Medical Code(s): R74.02 - Elevation of levels of lactic acid dehydrogenase [LDH] (10) Sepsis Status: Acute Category: Medical Code(s): A41.9 - Sepsis, unspecified organism (11) Elevated bilirubin Status: Acute Category: Medical Code(s): R17 - Unspecified jaundice (12) Hyperglycemia Status: Acute Category: Medical Code(s): R73.9 - Hyperglycemia, unspecified - Assessment and plan all Dx Assessment and
[2021-01-28 08:48] LABS: POC Glucose,Bedside 255 (70-110)
[2021-01-28 09:06] LABS: Anion Gap 6.6 mEq/L (5-15); Blood Urea Nitrogen 28 mg/dl (7-17); Calcium 8.8 mg/dl (8.4-10.2); Carbon Dioxide 31 mmol/L (22.0-30.0); Chloride 99 mmol/L (98-107); Creatinine Clearance Estimated 62 mL/min (50-200); Estimated Glomerular Filt Rate 61 ml/min (>60); GFR (African American) 74 ML/MIN (>60); Glucose 198 mg/dl (74-100); Potassium 3.6 mmoL/L (3.5-5.1); Sodium 133 mmol/L (136-145)
--- NOTE | 2021-01-28 12:50 | DIET.NUTRFU ---
RD saw patient today, she had a poor appetite for lunch. Still c/o some nausea and mouth pain. She had 5 teeth pulled earlier this month. Recommended softer proteins, she had cottage on tray but said she just was not hungry. She agreed to try glucerna with her lunch and dinner tray
--- NOTE | 2021-01-28 18:20 | PC.NURSE ---
PT WAS PLACE ON ROOM AIR THIS MORNING AND TOLERATED WELL. SHE SPENT MOST OF THE DAY UP TO CHAIR VISITING WITH FAMILY. NO OTHER CHANGES.
[2021-01-28 19:26] LABS: POC Glucose,Bedside 250 (70-110)
[2021-01-28 19:26] LABS: POC Glucose,Bedside 317 (70-110)
[2021-01-29] VITALS (10 sets, daily range): BP systolic 111–128; BP diastolic 56–67; PULSE 69–100; RESP 16–20; TEMP 36.7–37.4; O2SAT 91–98; BMI 27.3
[2021-01-29 00:02] LABS: POC Glucose,Bedside 212 (70-110)
--- NOTE | 2021-01-29 04:43 | PC.NURSE ---
pt slept most of the night after giving tylenol for temp 100.8, pt tachy during fever and dry coughing spells noted, cough med given as prescribed with relief of symptoms. pt normothermic at 0400, no other issues noted
[2021-01-29 06:27] LABS: POC Glucose,Bedside 204 (70-110)
[2021-01-29 06:50] LABS: Basophils % 0.5 % (0.1-2.0); Eosinophils # 0.3 K/mm3 (0.0-0.4); Eosinophils % 4.3 % (0.1-12.0); Lymphocytes # 1.2 K/mm3 (0.7-4.5); Lymphocytes % 19.3 % (10-50); Mean Corpuscular HGB Conc 32.2 g/dL (31.8-35.4); Mean Corpuscular Volume 93.2 fl (81-99); Mean Platelet Volume 8.9 fl (7.4-10.4); Monocytes # 0.4 K/mm3 (0.1-1.0); Monocytes % 6.6 % (1.7-9.3); Neutrophils # 4.4 K/mm3 (1.8-7.8); Neutrophils % 69.3 % (37.0-80.0); Platelet Count 238 K/mm3 (142-424); Red Blood Count 3.65 M/mm3 (4.20-5.40); Red Cell Distribution Width 13.6 % (11.5-17.5); White Blood Count 6.4 K/mm3 (4.8-10.8)
[2021-01-29 07:01] LABS: Anion Gap 3.8 mEq/L (5-15); Blood Urea Nitrogen 14 mg/dl (7-17); Calcium 8.7 mg/dl (8.4-10.2); Carbon Dioxide 33 mmol/L (22.0-30.0); Chloride 103 mmol/L (98-107); Creatinine Clearance Estimated 63 mL/min (50-200); Estimated Glomerular Filt Rate 82 ml/min (>60); GFR (African American) 99 ML/MIN (>60); Glucose 190 mg/dl (74-100); Potassium 3.8 mmoL/L (3.5-5.1); Sodium 136 mmol/L (136-145)
--- NOTE | 2021-01-29 08:41 | HMH.ACPN2 ---
<Maricruz Kay - Last Filed: 01/29/21 08:41> Internal Medicine - PN: Subj *Date: 01/29/21 *Time: 08:41 Interval history: Patient states she does feel a little bit better today. She finally had a good night sleep. She states she did not feel like eating breakfast this morning. She denies any pain other than in her ribs from coughing. Exam Vital signs and Labs for Last 24 Hours: Temp Pulse Resp BP Pulse Ox 98.1 F 71 18 111/61 98 01/29/21 04:00 01/29/21 06:14 01/29/21 04:00 01/29/21 04:00 01/29/21 06:14 Laboratory Results - last 24 hr 01/28/21 05:55: Sodium 133 L, Potassium 3.6, Chloride 99, Carbon Dioxide 31 H, Anion Gap 6.6, BUN 28 H D, Creatinine 0.90, Estimated Creat Clear 62, Estimated GFR 61, Est GFR ( Amer) 74 D, Glucose 198 H, Calcium 8.8 01/28/21 08:32: POC Glucose 255 H 01/28/21 12:10: POC Glucose 250 H 01/28/21 16:36: POC Glucose 317 H* 01/28/21 21:05: POC Glucose 212 H 01/29/21 05:47: WBC 6.4 D, RBC 3.65 L, Hgb 11.0 L, Hct 34.0 L, MCV 93.2, MCH 30.0, MCHC 32.2, RDW 13.6, Plt Count 238, MPV 8.9, Neut % (Auto) 69.3, Lymph % (Auto) 19.3, [place] % (Auto) 6.6, Eos % (Auto) 4.3, Baso % (Auto) 0.5, Neut # (Auto) 4.4, Lymph # (Auto) 1.2, [place] # (Auto) 0.4, Eos # (Auto) 0.3, Baso # (Auto) 0.0 01/29/21 05:47: Sodium 136, Potassium 3.8, Chloride 103, Carbon Dioxide 33 H, Anion Gap 3.8 L, BUN 14 D, Creatinine 0.70 D, Estimated Creat Clear 63, Estimated GFR 82, Est GFR ( Amer) 99 D, Glucose 190 H, Calcium 8.7 01/29/21 06:01: POC Glucose 204 H I & O for Last 24 hours: Intake & Output 01/26/21 01/27/21 01/28/21 01/29/21 11:59 11:59 11:59 11:59 Intake Total 2620 / 2620 900 / 900 600 / 600 Output Total 0 / 0 Balance 2620 / 2620 900 / 900 600 / 600 Weight 168 lb 0.9 oz 172 lb 4.8 oz 174 lb 9.6 oz Microbiology Reports for the Last 24 Hours: Microbiology 01/27/21 13:50 Sputum - Expectorated Sputum Gram Stain - Final 01/27/21 13:50 Sputum - Expectorated Sputum Sputum Culture - Preliminary 01/26/21 18:16 Urine,Catheterized Urine Culture - Final NO GROWTH AFTER 48 HOURS 01/26/21 18:05 Blood Blood Culture - Preliminary NO GROWTH AFTER 48 HOURS 01/26/21 18:08 Blood Blood Culture - Preliminary NO GROWTH AFTER 48 HOURS - Constitutional no acute distress - *Routine Respiratory Exam Present: decreased breath sounds, rales - *Routine Cardiovascular Exam Present: RRR - *Routine Abdominal Exam Present: soft, normoactive bowel sounds. Absent: tenderness - *Routine Extremities Exam Absent: cyanosis, clubbing, edema - *Routine Skin Exam Present: warm. Absent: rash - *Routine Neurological Exam Present: alert, oriented X3 Assessment and Plan (1) CAP (community acquired pneumonia) Status: Acute Qualifiers: Laterality: right Category: Medical Code(s): J18.9 - Pneumonia, unspecified organism (2) Right middle lobe pneumonia Status: Acute Category: Medical Code(s): J18.9 - Pneumonia, unspecified organism (3) Right lower lobe pneumonia Status: Acute Category: Medical Code(s): J18.9 - Pneumonia, unspecified organism (4) Renal insufficiency Status: Acute Category: Medical Code(s): N28.9 - Disorder of kidney and ureter, unspecified (5) Type 2 diabetes mellitus Status: Chronic Qualifiers: Diabetes mellitus longwall headgate operator insulin use: with longwall headgate operator use Diabetes mellitus complication status: with hyperglycemia Qualified Code(s): E11.65 - Type 2 diabetes mellitus with hyperglycemia; Z79.4 - education specialist (current) use of insulin Category: Medical Code(s): E11.9 - Type 2 diabetes mellitus without complications (6) Anemia Status: Acute Category: Medical Code(s): D64.9 - Anemia, unspecified (7) Dehydration Status: Acute Category: Medical Code(s): E86.0 - Dehydration (8) ARIANA (acute kidney injury) Status: Acute Catego
--- NOTE | 2021-01-29 18:40 | PC.NURSE ---
SHE IS AOX4, HAS TOLERATED DIET WELL THIS SHIFT. SHE HAS REQUESTED COUGH MEDICATION AT REGULAR INTERVALS. PT STATES THAT ROBISMAEL WORKED MORE EFFECTIVELY THAT JOSLYN ACKERMAN.
[2021-01-30] VITALS: BP 128/66; PULSE 74; RESP 16; TEMP 36.9; O2SAT 98
[2021-01-30 04:00] VITALS: BP 149/76; PULSE 77; RESP 18; TEMP 36.9; O2SAT 96
--- NOTE | 2021-01-30 05:12 | PC.NURSE ---
pt rested well through the night, pt still with dry cough and medicated x1 with prescribed robitussin, no other issues noted, vss.
[2021-01-30 05:17] VITALS: BMI 27.9
[2021-01-30 06:08] VITALS: PULSE 65; PULSE 68; O2SAT 98
[2021-01-30 08:00] VITALS: BP 160/78; PULSE 79; RESP 19; TEMP 36.9; O2SAT 95; O2SAT 97
--- NOTE | 2021-01-30 08:05 | HMH.ACPN2 ---
<Adele Calhoun - Last Filed: 01/30/21 08:05> Internal Medicine - PN: Subj *Date: 01/30/21 *Time: 08:05 Interval history: Pt rested well overnight and is feeling much better this morning. She continues with a productive cough and SOBOE. She denies pain. She denies nausea although she reports decreased appetite due to mouth irritation. Exam Vital signs and Labs for Last 24 Hours: Temp Pulse Resp BP Pulse Ox 98.5 F 65 18 149/76 H 98 01/30/21 04:00 01/30/21 06:08 01/30/21 04:00 01/30/21 04:00 01/30/21 06:08 I & O for Last 24 hours: Intake & Output 01/27/21 01/28/21 01/29/21 01/30/21 11:59 11:59 11:59 11:59 Intake Total 2620 / 2620 900 / 900 600 / 600 480 / 480 Output Total 0 / 0 0 / 0 Balance 2620 / 2620 900 / 900 600 / 600 480 / 480 Weight 168 lb 0.9 oz 172 lb 4.8 oz 174 lb 9.6 oz 178 lb Microbiology Reports for the Last 24 Hours: Microbiology 01/27/21 13:50 Sputum - Expectorated Sputum Gram Stain - Final 01/27/21 13:50 Sputum - Expectorated Sputum Sputum Culture - Final Normal Respiratory Liat - Constitutional no acute distress - *Routine HEENT Exam Head: Present: normocephalic ENT: Present: mucous membranes moist - *Routine Respiratory Exam Absent: respiratory distress Comments: good air movement with scattered wheezes and bibasilar rales R > L, frequent productive cough - *Routine Cardiovascular Exam Present: RRR - *Routine Abdominal Exam Present: soft, normoactive bowel sounds. Absent: tenderness, distended, obese - *Routine Extremities Exam Present: pulses intact. Absent: edema, calf tenderness, extremity cold to touch - *Routine Neurological Exam Present: alert, oriented X3, moving all extremities Assessment and Plan (1) CAP (community acquired pneumonia) Status: Acute Qualifiers: Laterality: right Category: Medical Code(s): J18.9 - Pneumonia, unspecified organism (2) Right middle lobe pneumonia Status: Acute Category: Medical Code(s): J18.9 - Pneumonia, unspecified organism (3) Right lower lobe pneumonia Status: Acute Category: Medical Code(s): J18.9 - Pneumonia, unspecified organism (4) Renal insufficiency Status: Acute Category: Medical Code(s): N28.9 - Disorder of kidney and ureter, unspecified (5) Type 2 diabetes mellitus Status: Chronic Qualifiers: Diabetes mellitus termite exterminator helper insulin use: with termite exterminator helper use Diabetes mellitus complication status: with hyperglycemia Qualified Code(s): E11.65 - Type 2 diabetes mellitus with hyperglycemia; Z79.4 - senior living (current) use of insulin Category: Medical Code(s): E11.9 - Type 2 diabetes mellitus without complications (6) Anemia Status: Acute Category: Medical Code(s): D64.9 - Anemia, unspecified (7) Dehydration Status: Acute Category: Medical Code(s): E86.0 - Dehydration (8) ARIANA (acute kidney injury) Status: Acute Category: Medical Code(s): N17.9 - Acute kidney failure, unspecified (9) Elevated serum lactate dehydrogenase Status: Acute Category: Medical Code(s): R74.02 - Elevation of levels of lactic acid dehydrogenase [LDH] (10) Sepsis Status: Acute Category: Medical Code(s): A41.9 - Sepsis, unspecified organism (11) Elevated bilirubin Status: Acute Category: Medical Code(s): R17 - Unspecified jaundice (12) Hyperglycemia Status: Acute Category: Medical Code(s): R73.9 - Hyperglycemia, unspecified - Assessment and plan all Dx Assessment and Plan for all problems:: Sputum culture with growth of normal respiratory liat. Further per Dr. Larsen. <Abraahm Larsen - Last Filed: 01/30/21 08:58> Internal Medicine - PN: Subj *Date: 01/30/21 *Time: 08:57 Exam Vital signs and Labs for Last 24 Hours: Temp Pulse Resp BP Pulse Ox 98.5 F 79 19 160/78 H 95 01/30/21 08:00 01/30/21 08:00 01/30/21 08:00 01/30/21 08:00 01/30/21 08:00 I & O fo
--- NOTE | 2021-01-30 10:44 | PC.NURSE ---
discharge teaching with patient over new medications appointment and diagnosis. relayed she would not need to take azithromycin today since she is getting iv dose today
--- NOTE | 2021-01-30 11:36 | SW/DCPLANNER ---
PATIENT IS DISCHRGING HOME TODAY AND WILL FOLLOW UP IN THE OFFICE WITH DR DAVIES..
[2021-01-30 11:53] VITALS: BP 148/70; PULSE 74; RESP 18; TEMP 36.9; O2SAT 97
--- NOTE | 2021-01-30 15:58 | HMH.DCSUM ---
General - General Admission date:: 01/26/21 Discharge date: 01/30/21 HPI HPI: Ms. Wright was a 71-year-old female with a history of TIA, type 2 diabetes mellitus, diabetic neuropathy, hyperlipidemia, and peripheral vascular disease who presented to [facility] emergency room for evaluation after becoming progressively short of breath and with an increase in a productive cough. She stated that it began Tuesday a.m. after participating in an outside parade the previous night. She developed a cough at that time. She did go on an outing to the [place] with family and went to [place] the following day on Tuesday. She was unable to eat and drink much if anything at all. She stayed in the bed yesterday on 01/26/2021. With the progression of her symptoms she did present to the ER. She did have some chest discomfort in her lower rib cage anteriorly. She did describe some hemoptysis, fever, nausea and vomiting, as well as nasal drainage and sore throat. She stated she felt that she retained her medications. Her blood sugars had been less than 200 at home. In the emergency room she was given a fluid bolus and also received IV vancomycin, cefepime, Flagyl, doxycycline, Rocephin. CTA of the chest revealed the following: IMPRESSION: 1. No acute pulmonary emboli. 2. No thoracic aortic aneurysm or dissection. 3. Patchy consolidations predominantly in the posteromedial and basilar right lower lobe, minimally in the right middle lobe, with some additional ground-glass disease. Correlate for pneumonia. 4. Mild right mediastinal and hilar lymphadenopathy. 5. Coronary artery disease. 6. Additional nonemergency and chronic findings as above. Abdominal/pelvis CT showed the following IMPRESSION: 1. Dense layering sludge or particulate gallstones, no CT findings of acute cholecystitis or biliary obstruction. 2. Atrophic pancreas containing multiple small cystic lesions as discussed above, including a complex partially calcified cyst, and cyst in the distal body of pancreas which measures up to 1.6 cm on the previous MRI exam. No pancreatic ductal dilatation. Reimaging every 6 months for 2 years, then every 1 year for 2 years, then every 2 years for 6 years is recommended. (this could be performed with pancreas protocol MRI with and without contrast.) Alternatively, endoscopic ultrasound with fine needle aspiration could be performed. (Reference: Artemio, 2017) . No further imaging follow-up indicated after age 80. 3. Uterine fibroids. 4. There is diverticulosis coli, without evidence of acute diverticulitis. 5. Right lower and middle lobe pneumonia, please see the chest CTA report. 6. Additional nonemergency and chronic findings as above. Laboratory data did reveal an elevated white blood cell count of 16,300 with a hemoglobin of 11.5 hematocrit 34.8. Gases showed pH 7.38 PCO2 of 34.6 PO2 of 59.4 and a bicarb of 19.9. Chemistries revealed a sodium of 131 potassium 3.9 BUN is 18 creatinine is 1.10 blood sugar was elevated at 451 and lactate was slightly elevated at 2.9. Troponin I was 0.04 and 0.03 BNP was elevated at 1930. She was admitted for further evaluation and treatment. Hospital Course Hospital Course: The morning following admission the patient felt much better. She was only slightly nauseated and wanted to try breakfast. She had very minimal chest discomfort and was somewhat short of breath. It was felt her initial presentation was consistent with community-acquired pneumonia with sepsis and she was started on Rocephin and Zithromax for treatment as well as Duonebs. Sputum culture was ordered. She was started on Lantus and sliding scale insulin was increased to high intensity due to hyperglycemia. She was started on Lovenox and Pepcid prophylactically with plan to recheck labs the following day. By the following morning, her WBC had improved and blood sugars remained stable
[2021-01-31 21:33] LABS: POC Glucose,Bedside 238 (70-110)
[2021-01-31 21:33] LABS: POC Glucose,Bedside 247 (70-110)
[2021-01-31 21:33] LABS: POC Glucose,Bedside 218 (70-110)
[2021-01-31 21:33] LABS: POC Glucose,Bedside 252 (70-110)
[2021-01-31 21:33] LABS: POC Glucose,Bedside 227 (70-110)
[2021-01-31 21:33] LABS: POC Glucose,Bedside 133 (70-110)
== END 2021-01-30 13:56 | disposition home or self-care (01) | DRG 871 ==
LOC: ER 19:25 → 2ND 20:50
PROVIDERS: Admitting Provider Family Medicine; Emergency Provider Emergency Medicine; PCP Family Medicine; Visit Provider Family Medicine
DX: A41.9 Sepsis, unspecified organism (principal); J18.9 Pneumonia, unspecified organism; J96.90 Respiratory failure, unspecified, unspecified whether with hypoxia or hypercapnia; N17.9 Acute kidney failure, unspecified; E86.0 Dehydration; D64.9 Anemia, unspecified; Z20.822 Contact with and (suspected) exposure to COVID-19; M19.90 Unspecified osteoarthritis, unspecified site; E11.51 Type 2 diabetes mellitus with diabetic peripheral angiopathy without gangrene; Z86.73 Personal history of transient ischemic attack (TIA), and cerebral infarction without residual deficits; E11.65 Type 2 diabetes mellitus with hyperglycemia; R65.20 Severe sepsis without septic shock
CPT/HCPCS: 36415; 71045; 71275; 74177; 80048; 80053; 81001; 82009; 82803; 82962; 83605; 83690; 83880; 84484; 85007; 85025; 85378; 85610; 87040; 87070; 87086; 87205; 93005; 94640; 94760; 94761; 96365; 96366; 96367; 96375; 99285; C9803; J0456; J2405; Q9967; U0003; U0005

== ENCOUNTER → 2021-04-20 09:50 | Outpatient (CLI) | payer MEDICARE, SELFPAY | PROVIDERS: Visit Provider Nurse Practitioner | DX: Z20.822 Contact with and (suspected) exposure to COVID-19 (principal) | CPT/HCPCS: C9803; U0003; U0005 ==

== ENCOUNTER → 2021-12-03 11:04 | Outpatient (CLI) | payer MEDICARE, SELFPAY | PROVIDERS: PCP Family Medicine; Visit Provider Family Medicine | DX: R30.0 Dysuria (principal); B96.1 Klebsiella pneumoniae [K. pneumoniae] as the cause of diseases classified elsewhere | CPT/HCPCS: 87086; 87088; 87186 ==

== ENCOUNTER → 2021-12-24 11:07 | Outpatient (CLI) | payer MEDICARE, SELFPAY ==
[2021-12-24 12:11] LABS: MANUAL DIFFERENTIAL MANUAL DIFFERENTIAL (MANUAL DIFF)
[2021-12-24 12:26] LABS: Basophils # 0.1 K/mm3 (0-0.2); Basophils % 1.5 % (0.1-2.0); Eosinophils # 0.1 K/mm3 (0.0-0.4); Eosinophils % 2.9 % (0.1-12.0); Hematocrit 44.4 % (37.0-47.0); Hemoglobin 14.1 g/dL (12.2-16.2); Lymphocytes # 1.3 K/mm3 (0.7-4.5); Lymphocytes % 33.7 % (10-50); Mean Corpuscular HGB Conc 31.8 g/dL (31.8-35.4); Mean Corpuscular Hemoglobin 30.1 pg (27.0-31.2); Mean Corpuscular Volume 94.7 fl (81-99); Mean Platelet Volume 9.1 fl (7.4-10.4); Monocytes # 0.3 K/mm3 (0.1-1.0); Monocytes % 6.9 % (1.7-9.3); Neutrophils # 2.1 K/mm3 (1.8-7.8); Platelet Count 237 K/mm3 (142-424); Red Blood Count 4.68 M/mm3 (4.20-5.40); Red Cell Distribution Width 13.5 % (11.5-17.5); White Blood Count 3.9 K/mm3 (4.8-10.8)
[2021-12-24 12:42] LABS: Microalbumin/Creatinine Ratio 31.5
[2021-12-24 12:43] LABS: Creatinine,Urine Random 151 mg/dL (Not Estab.); Hemoglobin A1C 12.3 % (4.0-6.0)
[2021-12-24 13:08] LABS: Chloride 103 mmol/L (98-107); Sodium 141 mmol/L (136-145)
[2021-12-24 13:11] LABS: Alanine Aminotransferase 18 U/L (12-78); Albumin Level 3.9 g/dl (3.5-5.0); Albumin/Globulin Ratio 1.6 (1.1-1.8); Alkaline Phosphatase 107 U/L (38-126); Aspartate Amino Transferase 24 U/L (14-36); Bilirubin,Total 0.7 mg/dl (0.2-1.3); Blood Urea Nitrogen 8 mg/dl (7-17); Carbon Dioxide 30 mmol/L (22.0-30.0); Cholesterol 120 mg/dl (140-200); Estimated Glomerular Filt Rate 82 ml/min (>60); GFR (African American) 99 ML/MIN (>60); Globulin 2.5 g/dL (1.3-3.2); Total Protein,Serum 6.4 g/dl (6.3-8.2); Triglycerides 81 mg/dl (30-150); VLDL Cholesterol 16 mg/dL (0-40)
[2021-12-24 13:12] LABS: Calcium 9.4 mg/dl (8.4-10.2); Chol/HDL Ratio 2.4 (1-3.5); Glucose 120 mg/dl (74-100); HDL Cholesterol 49 mg/dl (40-60)
[2021-12-24 13:23] LABS: Direct LDL Cholesterol 44.05 mg/dL (100-129)
[2021-12-24 13:42] LABS: Thyroid Stimulating Hormone 2.91 uIU/mL (0.465-4.68)
[2021-12-24 17:55] LABS: Lymphocytes % 27 % (10-50); Monocytes % 5 % (2-9); Neutrophils % 68 % (42-76); Platelet Estimate Normal; RBC Morphology Normal; Total Cells Counted 100
== END ==
PROVIDERS: PCP Family Medicine; Visit Provider Family Medicine
DX: E11.65 Type 2 diabetes mellitus with hyperglycemia (principal); Z79.4 Long term (current) use of insulin; R52 Pain, unspecified; D64.9 Anemia, unspecified; N28.9 Disorder of kidney and ureter, unspecified
CPT/HCPCS: 80053; 80061; 82043; 82570; 83036; 84443; 85007; 85014; 85018; 85048; 85049; 87086

== ENCOUNTER 2021-12-28 13:19 | Emergency (ER) | payer MEDICARE, SELFPAY ==
[2021-12-28 13:22] VITALS: BP 165/85; PULSE 65; RESP 16; TEMP 36.8; O2SAT 99; BMI 25.8
--- NOTE | 2021-12-28 13:30 | XR_ITS ---
FINAL REPORT CLINICAL HISTORY: fall, right shoulder pain FINDINGS: 3 views of the right shoulder were obtained. There is no acute fracture or dislocation. The joint spaces are intact. There are no soft tissue abnormalities. IMPRESSION: No acute process. Reviewed, Interpreted and Dictated by Diaz Melchor MD Transcribed by Morris Casanova Authenticated and [facility]
--- NOTE | 2021-12-28 13:30 | CT_ITS ---
FINAL REPORT TECHNIQUE: Axial CT images were performed through the head. Coronal reformatted images were submitted. This study was performed with techniques to keep radiation doses as low as reasonably achievable (ALARA). Individualized dose reduction techniques using automated exposure control or adjustment of mA and/or kV according to the patient's size were employed. CLINICAL HISTORY: head injury-- fall large laceration over right eye FINDINGS: There is mild atrophy. The ventricles are normal in size. There is no evidence of hemorrhage. There is no mass or edema identified. There is no abnormal extra-axial fluid seen. The sinuses are well aerated. There is moderate hyperostosis frontalis interna. IMPRESSION: No acute intracranial process. Reviewed, Interpreted and Dictated by Diaz Melchor MD Transcribed by Morris Casanova Authenticated and . [facility]
--- NOTE | 2021-12-28 13:30 | CT_ITS ---
FINAL REPORT CLINICAL HISTORY: fall FINDINGS: CT CERVICAL SPINE Axial CT images were performed through the cervical spine. Coronal and sagittal reformats were submitted and reviewed. This study was performed with techniques to keep radiation doses as low as reasonably achievable (ALARA). Individualized dose reduction techniques using automated exposure control or adjustment of mA and/or kV according to the patient's size were employed. FINDINGS: There is no acute fracture or subluxation. The vertebral alignment is normal. The prevertebral soft tissues are unremarkable. There is mild disc space narrowing and endplate hypertrophy at C4-5 and C5-6 with mild neural foraminal narrowing. There is posterior aspect formation eccentric to the left at C6-7 with moderate left neural foraminal narrowing at C6-7. The facets are normally aligned. Limited images of the lung apices are unremarkable. IMPRESSION: No acute fracture. Reviewed, Interpreted and Dictated by Diaz Melchor MD Transcribed by Morris Casanova Authenticated and [facility]
--- NOTE | 2021-12-28 13:30 | HMH.EDGENADL ---
Discharge Plan Disposition Patient Disposition: Home, Self-Care Condition: Good Chief Complaint: Fall Prescriptions Prescriptions: No Action atorvastatin 80 mg tablet 80 mg PO DAILY omeprazole 40 mg capsule,delayed release(DR/EC) 40 mg PO DAILY celecoxib 100 mg capsule 100 mg PO DAILY Jardiance 25 mg tablet 25 mg PO DAILY apple cider vinegar 300 mg tablet PO quinine-vitamin E Capsule PO Label Comments: OTC For leg cramps fluconazole [Diflucan] 150 mg tablet 150 mg PO Q3D 3 Days Qty: 1 0RF (DME) insulin syringe-needle U-100 [BD Insulin Syringe] 1 mL 29 gauge x 1/2 syringe See Rx Instructions .Route Qty: 100 0RF Rx Instructions: As directed Levemir U-100 Insulin 100 unit/mL solution 15 unit SQ HS Qty: 10 2RF sulfamethoxazole-trimethoprim [Bactrim DS] 800-160 mg tablet 1 tab PO BID Qty: 14 0RF fluconazole [Diflucan] 150 mg tablet 150 mg PO Q3D Qty: 2 0RF fluticasone propionate 16 GM spray,suspension 1 spray intranasal DAILYP PRN (Reason: [place]) insulin NPH and regular human 100 UNIT/ML suspension 40 units SQ HS tramadol 50 MG tablet 50 mg PO Q6HP PRN (Reason: Moderate To Severe Pain) Qty: 30 0RF famotidine 40 MG tablet 40 mg PO DAILY cholecalciferol (vitamin D3) 1,000 UNIT capsule 1,000 units PO DAILY calcium carbonate-vitamin D3 1 EACH tablet,chewable 600 mg PO BID Referrals Follow up/Referrals: Marlee Morin DO [Primary Care Provider] - See instructions Clinical Impressions Clinical Impression: Fall, CHI (closed head injury), Face lacerations Instructions Patient Instructions: Closed Head Injury, DI for Laceration Repair Discharge ED Provider: Claude Ayala General Adult HPI General Chief complaint: [place] St[place]: [id number], Laceration to right eye Time Seen by Provider: 12/28/21 13:27 History of Present Illness HPI narrative: 72-year-old female, prior history of transient ischemic attack, not on aspirin or any other anticoagulant. She presents status post mechanical fall where she states her toe caught on something on the ground she fell forward struck her head sustaining laceration just above the right eye. She denies loss of consciousness, denies neck or back pain, was ambulatory, did sustain abrasions to both knees and as well as the right shoulder where there is some discomfort however has intact range of motion. She denies any blurry or double vision, nausea or vomiting or any other symptoms. She also thinks is probably been more than 10 years since she had a tetanus shot. Related Data Home Medications Medication Instructions Recorded Confirmed atorvastatin 80 mg tablet 80 mg PO DAILY Cholesterol 06/18/19 12/24/21 fluticasone propionate 50 1 spray intranasal DAILYP PRN 04/04/20 12/24/21 mcg/actuation nasal [place] spray,suspension insulin human U-100 NPH-regulr 40 units SQ HS Diabetes 04/04/20 12/24/21 70-30 mix 100 unit/mL subcutaneous susp calcium carbonate 500 mg-vitamin 600 mg PO BID Supplement 01/27/21 12/24/21 D3 2.5 mcg (100 unit) chewable tablet cholecalciferol (vitamin D3) 25 1,000 units PO DAILY Supplement 01/27/21 12/24/21 mcg (1,000 unit) capsule famotidine 40 mg tablet 40 mg PO DAILY Acid Reflux 01/27/21 12/24/21 apple cider vinegar 300 mg tablet mg PO 12/03/21 12/24/21 celecoxib 100 mg capsule 100 mg PO DAILY 12/03/21 12/24/21 empagliflozin 25 mg tablet 25 mg PO DAILY 12/03/21 12/24/21 (Jardiance) omeprazole 40 mg capsule,delayed 40 mg PO DAILY 12/03/21 12/24/21 release quinine-vitamin E capsule cap PO 12/03/21 12/24/21 Previous Rx's Medication Instructions Recorded tramadol 50 mg tablet 50 mg PO Q6HP PRN Moderate To 04/07/20 Severe Pain #30 tabs fluconazole 150 mg tablet 150 mg PO Q3D 3 days #1 tab 12/03/21 (Diflucan) insulin detemir U-100 100 unit/mL 15 unit (0.15 mL) SQ HS #10 mL 1
--- NOTE | 2021-12-28 13:34 | XR_ITS ---
FINAL REPORT CLINICAL HISTORY: fall, b/l knee pain FINDINGS: AP STANDING KNEES Standing AP views of both knees were obtained. There is no acute fracture identified. There is no dislocation. The joint spaces appear intact. There is no acute soft tissue abnormality. IMPRESSION: No acute process. Reviewed, Interpreted and Dictated by Diaz Melchor MD Transcribed by Morris Casanova Authenticated and [facility]
[2021-12-28 13:42] VITALS: PULSE 59; RESP 16; O2SAT 100
--- NOTE | 2021-12-28 13:43 | PC.NURSE ---
Pt to rad
[2021-12-28 13:54] VITALS: BP 151/81; PULSE 60; RESP 18; O2SAT 93
--- NOTE | 2021-12-28 13:54 | PC.NURSE ---
PT BACK FROM CT
--- NOTE | 2021-12-28 14:04 | PC.NURSE ---
Pt returned from rad. Pulled tetanus and iptheria toxoid immunization cosnet filled out and IM given to pt [id number] Lot # [id number].
[2021-12-28 15:34] VITALS: BP 153/85; PULSE 60; RESP 16; O2SAT 99
[2021-12-28 16:02] VITALS: BP 150/74; PULSE 72; RESP 16; TEMP 36.8; O2SAT 98
== END 2021-12-28 16:03 | disposition home or self-care (01) ==
PROVIDERS: Emergency Provider Emergency Medicine; PCP Family Medicine
DX: S01.81XA Laceration without foreign body of other part of head, initial encounter (principal); S09.90XA Unspecified injury of head, initial encounter; S80.212A Abrasion, left knee, initial encounter; S80.211A Abrasion, right knee, initial encounter; S40.211A Abrasion of right shoulder, initial encounter; W18.30XA Fall on same level, unspecified, initial encounter; Z23 Encounter for immunization; Z79.4 Long term (current) use of insulin; Z79.899 Other long term (current) drug therapy; Z88.6 Allergy status to analgesic agent; E11.9 Type 2 diabetes mellitus without complications; K21.9 Gastro-esophageal reflux disease without esophagitis
CPT/HCPCS: 12014; 70450; 72125; 73030; 73565; 90471; 90714; 99285

== ENCOUNTER → 2022-02-01 14:14 | Outpatient (CLI) | payer MEDICARE, SELFPAY ==
--- NOTE | 2022-02-01 14:21 | XR_ITS ---
FINAL REPORT CLINICAL HISTORY: soa, cough COMPARISON: January 26, 2021 FINDINGS: Two views of the chest were obtained. The heart size and pulmonary vascularity are within normal limits. The mediastinum is normal. No acute pulmonary abnormality is identified. There is no pneumothorax. The bony thorax is intact. IMPRESSION: No active cardiopulmonary disease. Reviewed, Interpreted and Dictated by Jesu Merrill III, MD Transcribed by Luna Monreal Authenticated and [facility]
[2022-02-01 14:56] LABS: Microscopic, Urine URINE MICROSCOPIC (MICROSCOPIC)
[2022-02-01 15:12] LABS: Basophils # 0.1 K/mm3 (0-0.2); Basophils % 1.7 % (0.1-2.0); Eosinophils # 0.1 K/mm3 (0.0-0.4); Eosinophils % 0.6 % (0.1-12.0); Hematocrit 45.7 % (37.0-47.0); Lymphocytes # 2.6 K/mm3 (0.7-4.5); Lymphocytes % 31.7 % (10-50); Mean Corpuscular HGB Conc 32.8 g/dL (31.8-35.4); Mean Corpuscular Hemoglobin 29.5 pg (27.0-31.2); Mean Corpuscular Volume 90.1 fl (81-99); Mean Platelet Volume 8.8 fl (7.4-10.4); Monocytes # 0.5 K/mm3 (0.1-1.0); Monocytes % 5.9 % (1.7-9.3); Neutrophils % 60.1 % (37.0-80.0); Platelet Count 227 K/mm3 (142-424); Red Blood Count 5.07 M/mm3 (4.20-5.40); Red Cell Distribution Width 13.6 % (11.5-17.5); White Blood Count 8.2 K/mm3 (4.8-10.8)
[2022-02-01 15:40] LABS: Appearance,Urine CLOUDY (Clear); Bilirubin,Urine Negative (Negative); Blood, Urine 1+ (Negative); Color,Urine YELLOW (Yellow); Glucose,Urine (UA) Negative (Negative); Ketones,Urine Negative (Negative); Leukocyte Esterase,Urine 2+ (Negative); Nitrate,Urine Negative (Negative); PH,Urine 5.5 (5.0-8.5); Protein,Urine 1+ (Negative); Specific Gravity, Urine >= 1.030 (1.005-1.030); Urobilinogen,Urine 0.2 EU/dl (0.2)
[2022-02-01 15:47] LABS: Bacteria,Urine 1+ /lpf; RBC,Urine Occasional #/hpf (0-3); Squamous Epithelial Cell,Urine Occasional #/hpf (0-5); WBC,Urine TNTC #/hpf (0-3)
[2022-02-01 16:21] LABS: Alanine Aminotransferase 18 U/L (12-78); Albumin Level 4.5 g/dl (3.5-5.0); Albumin/Globulin Ratio 1.6 (1.1-1.8); Alkaline Phosphatase 116 U/L (38-126); Anion Gap 15.3 mEq/L (5-15); Aspartate Amino Transferase 23 U/L (14-36); Bilirubin,Total 0.8 mg/dl (0.2-1.3); Blood Urea Nitrogen 17 mg/dl (7-17); Calcium 9.9 mg/dl (8.4-10.2); Carbon Dioxide 27 mmol/L (22.0-30.0); Chloride 100 mmol/L (98-107); Estimated Glomerular Filt Rate 54 ml/min (>60); GFR (African American) 66 ML/MIN (>60); Globulin 2.8 g/dL (1.3-3.2); Glucose 215 mg/dl (74-100); Potassium 4.3 mmoL/L (3.5-5.1); Sodium 138 mmol/L (136-145); Total Protein,Serum 7.3 g/dl (6.3-8.2)
== END ==
PROVIDERS: PCP Family Medicine; Visit Provider Family Medicine
DX: R06.02 Shortness of breath (principal); R05.9 Cough, unspecified; R52 Pain, unspecified; J06.9 Acute upper respiratory infection, unspecified; N39.0 Urinary tract infection, site not specified; B96.1 Klebsiella pneumoniae [K. pneumoniae] as the cause of diseases classified elsewhere
CPT/HCPCS: 36415; 71046; 80053; 81001; 85025; 87086; 87088; 87186

== ENCOUNTER → 2022-02-05 12:06 | Outpatient (CLI) | payer MEDICARE, SELFPAY ==
[2022-02-05 12:14] LABS: Adenovirus,PCR Not Detected (NotDetected); Bordetella Pertussis Not Detected (NotDetected); Chlamydophila Pneumoniae, PCR Not Detected (NotDetected); Coronavirus 19, PCR Not Detected (NotDetected); Coronavirus 229E Not Detected (NotDetected); Coronavirus NL63 Not Detected (NotDetected); Coronavirus OC43 Not Detected (NotDetected); Coronovirus HKU1,PCR Not Detected (NotDetected); Human Metapneumovirus Not Detected (NotDetected); Influenza A, PCR Not Detected (NotDetected); Influenza AH1, 2009 Not Detected (NotDetected); Influenza AH1, PCR Not Detected (NotDetected); Influenza AH3,PCR Not Detected (NotDetected); Influenza B, PCR Not Detected (NotDetected); Mycoplasma Pneumoniae, PCR Not Detected (NotDetected); Parainfluenza 1, PCR Not Detected (NotDetected); Parainfluenza 2, PCR Not Detected (NotDetected); Parainfluenza 3, PCR Not Detected (NotDetected); Parainfluenza 4, PCR Not Detected (NotDetected); Respiratory Syncytial Virus Not Detected (NotDetected); Rhinovirus/Enterovirus Not Detected (NotDetected)
== END ==
PROVIDERS: PCP Family Medicine; Visit Provider Family Medicine
DX: J06.9 Acute upper respiratory infection, unspecified (principal); Z20.822 Contact with and (suspected) exposure to COVID-19
CPT/HCPCS: 87581; 87632; 87798; C9803; U0003; U0005

== ENCOUNTER → 2022-03-22 11:15 | Outpatient (CLI) | payer MEDICARE, SELFPAY ==
[2022-03-22 12:28] LABS: Hemoglobin A1C 11.5 % (4.0-6.0)
[2022-03-22 12:38] LABS: Chloride 105 mmol/L (98-107)
[2022-03-22 12:39] LABS: Potassium 4.7 mmoL/L (3.5-5.1); Sodium 142 mmol/L (136-145)
[2022-03-22 12:41] LABS: Alanine Aminotransferase 18 U/L (12-78); Albumin Level 4.2 g/dl (3.5-5.0); Albumin/Globulin Ratio 1.6 (1.1-1.8); Alkaline Phosphatase 91 U/L (38-126); Anion Gap 11.7 mEq/L (5-15); Aspartate Amino Transferase 20 U/L (14-36); Bilirubin,Total 0.7 mg/dl (0.2-1.3); Blood Urea Nitrogen 9 mg/dl (7-17); Carbon Dioxide 30 mmol/L (22.0-30.0); Cholesterol 107 mg/dl (140-200); Estimated Glomerular Filt Rate 82 ml/min (>60); GFR (African American) 99 ML/MIN (>60); Globulin 2.6 g/dL (1.3-3.2); Total Protein,Serum 6.8 g/dl (6.3-8.2); Triglycerides 63 mg/dl (30-150); VLDL Cholesterol 13 mg/dL (0-40)
[2022-03-22 12:42] LABS: Calcium 9.3 mg/dl (8.4-10.2); Chol/HDL Ratio 1.9 (1-3.5); Glucose 124 mg/dl (74-100); HDL Cholesterol 57 mg/dl (40-60)
[2022-03-22 12:54] LABS: Direct LDL Cholesterol 35.77 mg/dL (100-129)
== END ==
PROVIDERS: PCP Family Medicine; Visit Provider Family Medicine
DX: E11.65 Type 2 diabetes mellitus with hyperglycemia (principal); Z79.4 Long term (current) use of insulin; E78.5 Hyperlipidemia, unspecified; N39.0 Urinary tract infection, site not specified; B96.29 Other Escherichia coli [E. coli] as the cause of diseases classified elsewhere
CPT/HCPCS: 36415; 80053; 80061; 83036; 87086; 87088; 87186

== ENCOUNTER → 2022-06-14 11:34 | Outpatient (CLI) | payer MEDICARE, SELFPAY ==
[2022-06-14 11:42] LABS: Microscopic, Urine URINE MICROSCOPIC (MICROSCOPIC)
[2022-06-14 12:59] LABS: Alanine Aminotransferase 20 U/L (12-78); Albumin Level 3.9 g/dl (3.5-5.0); Albumin/Globulin Ratio 1.5 (1.1-1.8); Alkaline Phosphatase 132 U/L (38-126); Anion Gap 10.1 mEq/L (5-15); Aspartate Amino Transferase 25 U/L (14-36); Bilirubin,Total 0.8 mg/dl (0.2-1.3); Blood Urea Nitrogen 14 mg/dl (7-17); Calcium 8.9 mg/dl (8.4-10.2); Carbon Dioxide 31 mmol/L (22.0-30.0); Chloride 102 mmol/L (98-107); Estimated Glomerular Filt Rate 82 ml/min (>60); GFR (African American) 99 ML/MIN (>60); Globulin 2.6 g/dL (1.3-3.2); Glucose 164 mg/dl (74-100); Potassium 4.1 mmoL/L (3.5-5.1); Sodium 139 mmol/L (136-145); Total Protein,Serum 6.5 g/dl (6.3-8.2)
[2022-06-14 13:18] LABS: Hemoglobin A1C 11.5 % (4.0-6.0)
[2022-06-14 13:50] LABS: Appearance,Urine CLEAR (Clear); Bilirubin,Urine Negative (Negative); Blood, Urine Negative (Negative); Color,Urine YELLOW (Yellow); Glucose,Urine (UA) Negative (Negative); Ketones,Urine Negative (Negative); Leukocyte Esterase,Urine 2+ (Negative); Nitrate,Urine Negative (Negative); Protein,Urine Negative (Negative); Specific Gravity, Urine 1.015 (1.005-1.030); Urobilinogen,Urine 0.2 EU/dl (0.2)
[2022-06-14 14:02] LABS: Bacteria,Urine Trace /lpf; RBC,Urine Occasional #/hpf (0-3); WBC,Urine Occasional #/hpf (0-3)
== END ==
PROVIDERS: PCP Family Medicine; Visit Provider Family Medicine
DX: N39.0 Urinary tract infection, site not specified; E11.65 Type 2 diabetes mellitus with hyperglycemia; Z79.4 Long term (current) use of insulin
CPT/HCPCS: 36415; 80053; 81001; 83036; 87086

== ENCOUNTER → 2022-09-13 15:58 | Outpatient (CLI) | payer MEDICARE, SELFPAY ==
[2022-09-13 17:05] LABS: Alanine Aminotransferase 32 U/L (12-78); Albumin Level 3.9 g/dl (3.5-5.0); Albumin/Globulin Ratio 1.4 (1.1-1.8); Alkaline Phosphatase 131 U/L (38-126); Anion Gap 7.4 mEq/L (5-15); Aspartate Amino Transferase 36 U/L (14-36); Bilirubin,Total 0.4 mg/dl (0.2-1.3); Blood Urea Nitrogen 12 mg/dl (7-17); Calcium 9.4 mg/dl (8.4-10.2); Carbon Dioxide 33 mmol/L (22.0-30.0); Chloride 102 mmol/L (98-107); Chol/HDL Ratio 2.9 (1-3.5); Cholesterol 174 mg/dl (140-200); Estimated Glomerular Filt Rate 70 ml/min (>60); GFR (African American) 85 ML/MIN (>60); Globulin 2.8 g/dL (1.3-3.2); Glucose 124 mg/dl (74-100); HDL Cholesterol 60 mg/dl (40-60); Magnesium 1.9 mg/dl (1.6-2.3); Potassium 4.4 mmoL/L (3.5-5.1); Sodium 138 mmol/L (136-145); Total Protein,Serum 6.7 g/dl (6.3-8.2); Triglycerides 120 mg/dl (30-150); VLDL Cholesterol 24 mg/dL (0-40)
[2022-09-13 17:16] LABS: Direct LDL Cholesterol 84.34 mg/dL (100-129)
[2022-09-16 14:19] LABS: Alkaline Phosphatase 142 IU/L (44-121); Bone Fraction: 43 % (14-68); Intestinal Frac.: 4 % (0-18); Liver Fraction: 53 % (18-85)
== END ==
PROVIDERS: PCP Nurse Practitioner Family; Visit Provider Nurse Practitioner Family
DX: E11.9 Type 2 diabetes mellitus without complications (principal); E78.5 Hyperlipidemia, unspecified; M62.838 Other muscle spasm; Z79.4 Long term (current) use of insulin
CPT/HCPCS: 80053; 80061; 83036; 83735; 84075; 84080

== ENCOUNTER → 2022-11-08 10:16 | Outpatient (CLI) | payer MEDICARE, SELFPAY ==
--- NOTE | 2022-11-08 10:16 | MM_ITS ---
PROCEDURE INFORMATION: Exam: MG Bilateral Screening 3D Mammography Exam date and time: 11/08/2022 10:05 AM Age: 73 years old Clinical indication: Screening examination TECHNIQUE: Imaging protocol: Bilateral Screening tomosynthesis and 2D mammography including computer-aided detection (CAD) when performed. COMPARISON: 1. MG MM DIG SCREENING MAMM BI W/CAD 09/26/2020 1:19 PM 2. MG MM DIG SCREENING MAMM BI W/CAD 09/27/2019 10:19 AM FINDINGS: MAMMOGRAPHY: Breast composition: There are scattered areas of fibroglandular density. Mass: None. Architectural distortion: None. Calcifications: No suspicious calcifications. Asymmetric density: None. Skin thickening: None. Axillary adenopathy: None. IMPRESSION: No mammographic evidence of malignancy. Annual screening is recommended unless otherwise clinically indicated. ASSESSMENT: BI-RADS Category 1: Negative
== END ==
PROVIDERS: PCP Nurse Practitioner Family; Visit Provider Nurse Practitioner Family
DX: Z12.31 Encounter for screening mammogram for malignant neoplasm of breast (principal)
CPT/HCPCS: 77063; 77067

== ENCOUNTER → 2022-12-15 08:05 | Outpatient (CLI) | payer MEDICARE, SELFPAY ==
[2022-12-15 10:44] LABS: Microscopic, Urine URINE MICROSCOPIC (MICROSCOPIC)
[2022-12-15 11:00] LABS: Basophils % 0.9 % (0.1-2.0); Eosinophils # 0.1 K/mm3 (0.0-0.4); Eosinophils % 2.4 % (0.1-12.0); Hematocrit 41.1 % (37.0-47.0); Hemoglobin 13.8 g/dL (12.2-16.2); Lymphocytes # 1.8 K/mm3 (0.7-4.5); Lymphocytes % 34.6 % (10-50); Mean Corpuscular HGB Conc 33.6 g/dL (31.8-35.4); Mean Corpuscular Hemoglobin 31.5 pg (27.0-31.2); Mean Corpuscular Volume 93.8 fl (81-99); Mean Platelet Volume 9.7 fl (7.4-10.4); Monocytes # 0.3 K/mm3 (0.1-1.0); Monocytes % 6.6 % (1.7-9.3); Neutrophils # 2.8 K/mm3 (1.8-7.8); Neutrophils % 55.5 % (37.0-80.0); Platelet Count 242 K/mm3 (142-424); Red Blood Count 4.38 M/mm3 (4.20-5.40); Red Cell Distribution Width 13.5 % (11.5-17.5); White Blood Count 5.1 K/mm3 (4.8-10.8)
[2022-12-15 11:03] LABS: Appearance,Urine CLEAR (Clear); Bilirubin,Urine Negative (Negative); Blood, Urine TRACE-I (Negative); Color,Urine YELLOW (Yellow); Glucose,Urine (UA) 2+ (Negative); Ketones,Urine Negative (Negative); Leukocyte Esterase,Urine 2+ (Negative); Nitrate,Urine Negative (Negative); Protein,Urine Negative (Negative); Urobilinogen,Urine 0.2 EU/dl (0.2)
[2022-12-15 11:22] LABS: Alanine Aminotransferase 17 U/L (12-78); Albumin Level 3.9 g/dl (3.5-5.0); Albumin/Globulin Ratio 1.4 (1.1-1.8); Alkaline Phosphatase 88 U/L (38-126); Anion Gap 12.6 mEq/L (5-15); Aspartate Amino Transferase 23 U/L (14-36); Bilirubin,Total 0.7 mg/dl (0.2-1.3); Blood Urea Nitrogen 9 mg/dl (7-17); Calcium 9.2 mg/dl (8.4-10.2); Carbon Dioxide 30 mmol/L (22.0-30.0); Chloride 103 mmol/L (98-107); Chol/HDL Ratio 3.7 (1-3.5); Cholesterol 184 mg/dl (140-200); Estimated Glomerular Filt Rate 70 ml/min (>60); GFR (African American) 85 ML/MIN (>60); Globulin 2.8 g/dL (1.3-3.2); Glucose 202 mg/dl (74-100); HDL Cholesterol 50 mg/dl (40-60); Magnesium 1.8 mg/dl (1.6-2.3); Potassium 4.6 mmoL/L (3.5-5.1); Sodium 141 mmol/L (136-145); Total Protein,Serum 6.7 g/dl (6.3-8.2); Triglycerides 117 mg/dl (30-150); VLDL Cholesterol 23 mg/dL (0-40)
[2022-12-15 11:27] LABS: RBC,Urine Occasional #/hpf (0-3)
[2022-12-15 11:28] LABS: Iron 51 ug/dL (37-170)
[2022-12-15 11:33] LABS: Direct LDL Cholesterol 104.57 mg/dL (100-129)
[2022-12-15 11:39] LABS: Total Iron Binding Capacity 326 ug/dL (265-497)
[2022-12-15 11:41] LABS: 25-OH Vitamin D, Total 29.5 ng/mL (30-100); Free T4 (Free Thyroxine) 1.13 ng/dl (0.78-2.19)
[2022-12-15 11:55] LABS: Thyroid Stimulating Hormone 2.57 uIU/mL (0.465-4.68)
[2022-12-15 12:04] LABS: Ferritin 50.6 ng/ml (11.1-264)
[2022-12-15 12:31] LABS: Vitamin B12 295 pg/mL (239-931)
[2022-12-15 13:45] LABS: Hemoglobin A1C 9.9 % (4.0-6.0)
== END ==
PROVIDERS: PCP Nurse Practitioner Family; Visit Provider Nurse Practitioner Family
DX: E78.5 Hyperlipidemia, unspecified; R20.0 Anesthesia of skin; R20.2 Paresthesia of skin; D64.9 Anemia, unspecified; E11.65 Type 2 diabetes mellitus with hyperglycemia; E66.3 Overweight; Z79.4 Long term (current) use of insulin; E55.9 Vitamin D deficiency, unspecified; N28.9 Disorder of kidney and ureter, unspecified; Z68.29 Body mass index [BMI] 29.0-29.9, adult
CPT/HCPCS: 80053; 80061; 81001; 82306; 82607; 82728; 82746; 83036; 83540; 83550; 83735; 84439; 84443; 85025; 87086

== ENCOUNTER 2023-03-10 15:32 | Outpatient (CLI) | payer MEDICARE, SELFPAY ==
[2023-03-10 17:07] LABS: Hemoglobin A1C 9.3 % (4.0-6.0)
== END 2023-03-10 23:59 ==
LOC: LAB.DROPOF 15:32
PROVIDERS: PCP Nurse Practitioner Family; Visit Provider Nurse Practitioner Family
DX: E11.9 Type 2 diabetes mellitus without complications (principal); Z79.4 Long term (current) use of insulin; Z79.84 Long term (current) use of oral hypoglycemic drugs
CPT/HCPCS: 83036

== ENCOUNTER 2023-03-15 11:59 | Outpatient (CLI) | payer MEDICARE, SELFPAY ==
--- NOTE | 2023-03-15 12:06 | XR_ITS ---
FINAL REPORT CLINICAL HISTORY: right knee pain, no injury FINDINGS: 3 views of the right knee were obtained. There is no acute fracture or dislocation. The joint spaces are intact. There is minimal hypertrophic change along the undersurface of the patella. A trace joint effusion is present. IMPRESSION: No acute bony abnormality. Reviewed, Interpreted and Dictated by Diaz Melchor MD Transcribed by Morris Casanova Authenticated and [facility]
== END 2023-03-15 23:59 ==
LOC: RAD 12:00
PROVIDERS: PCP Nurse Practitioner Family; Visit Provider Nurse Practitioner Family
DX: M81.0 Age-related osteoporosis without current pathological fracture (principal); M85.80 Other specified disorders of bone density and structure, unspecified site
CPT/HCPCS: 73562

== ENCOUNTER 2023-05-02 14:59 | Outpatient (CLI) | payer MEDICARE, SELFPAY ==
[2023-05-02 14:55] LABS: Basophils # 0.1 K/mm3 (0-0.2); Basophils % 0.9 % (0.1-2.0); Eosinophils # 0.2 K/mm3 (0.0-0.4); Eosinophils % 1.7 % (0.1-12.0); Hemoglobin 14.7 g/dL (12.2-16.2); Lymphocytes # 1.8 K/mm3 (0.7-4.5); Lymphocytes % 19.7 % (10-50); Mean Corpuscular HGB Conc 31.9 g/dL (31.8-35.4); Mean Corpuscular Hemoglobin 31.5 pg (27.0-31.2); Mean Corpuscular Volume 98.6 fl (81-99); Mean Platelet Volume 8.9 fl (7.4-10.4); Monocytes # 0.5 K/mm3 (0.1-1.0); Neutrophils # 6.6 K/mm3 (1.8-7.8); Neutrophils % 72.7 % (37.0-80.0); Platelet Count 424 K/mm3 (142-424); Red Blood Count 4.67 M/mm3 (4.20-5.40); Red Cell Distribution Width 12.8 % (11.5-17.5); White Blood Count 9.1 K/mm3 (4.8-10.8)
[2023-05-02 15:16] LABS: Alanine Aminotransferase 13 U/L (12-78); Albumin Level 4.3 g/dl (3.5-5.0); Albumin/Globulin Ratio 1.5 (1.1-1.8); Alkaline Phosphatase 97 U/L (38-126); Anion Gap 12.1 mEq/L (5-15); Aspartate Amino Transferase 21 U/L (14-36); Bilirubin,Total 0.5 mg/dl (0.2-1.3); Blood Urea Nitrogen 14 mg/dl (7-17); Calcium 9.7 mg/dl (8.4-10.2); Carbon Dioxide 31 mmol/L (22.0-30.0); Chloride 97 mmol/L (98-107); Estimated Glomerular Filt Rate 54 ml/min (>60); GFR (African American) 65 ML/MIN (>60); Globulin 2.9 g/dL (1.3-3.2); Glucose 184 mg/dl (74-100); Potassium 5.1 mmoL/L (3.5-5.1); Sodium 135 mmol/L (136-145); Total Protein,Serum 7.2 g/dl (6.3-8.2)
== END 2023-05-02 23:59 ==
LOC: LAB.DROPOF 14:59
PROVIDERS: PCP Nurse Practitioner Family; Visit Provider Nurse Practitioner Family
DX: R30.0 Dysuria (principal); R10.9 Unspecified abdominal pain; E11.65 Type 2 diabetes mellitus with hyperglycemia; Z79.4 Long term (current) use of insulin; D64.9 Anemia, unspecified; M79.606 Pain in leg, unspecified; N39.0 Urinary tract infection, site not specified; B96.29 Other Escherichia coli [E. coli] as the cause of diseases classified elsewhere
CPT/HCPCS: 80053; 83735; 84100; 85025; 87086

== ENCOUNTER 2023-08-09 12:22 | Outpatient (CLI) | payer MEDICARE, SELFPAY ==
--- NOTE | 2023-08-09 12:35 | XR_ITS ---
FINAL REPORT CLINICAL HISTORY: Shortness of breath COMPARISON: 02/01/2022 FINDINGS: No acute pulmonary density is evident. There is no evidence of effusion or other pleural disease. The mediastinum has a normal appearance. The cardiac silhouette is unremarkable. IMPRESSION: Unremarkable chest exam. Reviewed, Interpreted and Dictated by Luan Church MD Transcribed by Emiliana Gonzalez Authenticated and [facility]
[2023-08-09 13:15] LABS: Microscopic, Urine URINE MICROSCOPIC (MICROSCOPIC)
[2023-08-09 13:26] LABS: Basophils # 0.1 K/mm3 (0-0.2); Basophils % 1.4 % (0.1-2.0); Eosinophils # 0.1 K/mm3 (0.0-0.4); Eosinophils % 1.7 % (0.1-12.0); Hemoglobin 14.1 g/dL (12.2-16.2); Lymphocytes # 1.5 K/mm3 (0.7-4.5); Lymphocytes % 35.8 % (10-50); Mean Corpuscular HGB Conc 32.8 g/dL (31.8-35.4); Mean Corpuscular Hemoglobin 31.1 pg (27.0-31.2); Mean Corpuscular Volume 94.8 fl (81-99); Mean Platelet Volume 8.5 fl (7.4-10.4); Monocytes # 0.3 K/mm3 (0.1-1.0); Monocytes % 6.5 % (1.7-9.3); Neutrophils # 2.3 K/mm3 (1.8-7.8); Neutrophils % 54.6 % (37.0-80.0); Platelet Count 287 K/mm3 (142-424); Red Blood Count 4.53 M/mm3 (4.20-5.40); White Blood Count 4.2 K/mm3 (4.8-10.8)
[2023-08-09 13:40] LABS: Appearance,Urine CLEAR (Clear); Bilirubin,Urine Negative (Negative); Blood, Urine Negative (Negative); Color,Urine YELLOW (Yellow); Glucose,Urine (UA) Negative (Negative); Ketones,Urine Negative (Negative); Leukocyte Esterase,Urine 2+ (Negative); Nitrate,Urine Negative (Negative); Protein,Urine Negative (Negative); Specific Gravity, Urine 1.015 (1.005-1.030); Urobilinogen,Urine 0.2 EU/dl (0.2)
[2023-08-09 13:54] LABS: Microalbumin/Creatinine Ratio 48.4
[2023-08-09 14:01] LABS: Creatinine,Urine Random 77 mg/dL (Not Estab.); Hemoglobin A1C 8.1 % (4.0-6.0)
[2023-08-09 14:15] LABS: Bacteria,Urine Trace /lpf
[2023-08-09 14:16] LABS: Alanine Aminotransferase 15 U/L (12-78); Albumin Level 4.3 g/dl (3.5-5.0); Albumin/Globulin Ratio 1.5 (1.1-1.8); Alkaline Phosphatase 88 U/L (38-126); Anion Gap 10.9 mEq/L (5-15); Aspartate Amino Transferase 26 U/L (14-36); Bilirubin,Total 0.6 mg/dl (0.2-1.3); Blood Urea Nitrogen 10 mg/dl (7-17); Carbon Dioxide 32 mmol/L (22.0-30.0); Chloride 100 mmol/L (98-107); Chol/HDL Ratio 5.4 (1-3.5); Cholesterol 231 mg/dl (140-200); Estimated Glomerular Filt Rate 70 ml/min (>60); GFR (African American) 84 ML/MIN (>60); Globulin 2.9 g/dL (1.3-3.2); Glucose 92 mg/dl (74-100); HDL Cholesterol 43 mg/dl (40-60); Magnesium 1.8 mg/dl (1.6-2.3); Potassium 4.9 mmoL/L (3.5-5.1); Sodium 138 mmol/L (136-145); Total Protein,Serum 7.2 g/dl (6.3-8.2); Triglycerides 266 mg/dl (30-150); VLDL Cholesterol 53 mg/dL (0-40)
[2023-08-09 14:27] LABS: Direct LDL Cholesterol 112.51 mg/dL (100-129)
[2023-08-09 14:31] LABS: Free T4 (Free Thyroxine) 1.06 ng/dl (0.78-2.19)
[2023-08-09 14:35] LABS: 25-OH Vitamin D, Total 26.4 ng/mL (30-100)
[2023-08-09 14:45] LABS: Thyroid Stimulating Hormone 2.14 uIU/mL (0.465-4.68)
[2023-08-09 15:04] LABS: Vitamin B12 378 pg/mL (239-931)
== END 2023-08-09 23:59 | disposition home or self-care (01) ==
LOC: RAD 12:25
PROVIDERS: PCP Nurse Practitioner Family; Visit Provider Nurse Practitioner Family
DX: R06.00 Dyspnea, unspecified (principal); M79.89 Other specified soft tissue disorders; E11.65 Type 2 diabetes mellitus with hyperglycemia; R53.83 Other fatigue; E78.5 Hyperlipidemia, unspecified; E55.9 Vitamin D deficiency, unspecified; N32.81 Overactive bladder; Z68.31 Body mass index [BMI] 31.0-31.9, adult; Z79.4 Long term (current) use of insulin; Z79.84 Long term (current) use of oral hypoglycemic drugs
CPT/HCPCS: 71046; 80050; 80053; 80061; 81001; 82043; 82306; 82570; 82607; 83036; 83735; 84439; 84443; 85025; 87086

== ENCOUNTER 2023-08-22 08:33 | Outpatient (CLI) | payer MEDICARE, SELFPAY ==
--- NOTE | 2023-08-22 08:35 | CA_ITS ---
APPROVED REPORT EXAM: Comprehensive 2D, Doppler, and color-flow Echocardiogram [facility] Provider: Lucy Emerson RDCS Ht: 5 ft 5 in Wt: 193lbs BSA: 1.95 BP: 126/70 mmHg Indications: BLE EDEMA,DM,HLP M-Mode Dimensions RVDd 1.81 cm (0.9-2.6) LA Diam 4.20 cm (1.9-4.0) LVDd 5.95 cm (3.5-5.7) LVDs 2.89 cm (3.5-5.7) IVSd 1.09 cm (0.6-1.1) PWd 0.88 cm (0.6-1.1) EF (Teich) 81.90% FS 51.40% EDV (Teich) 176.60 mL ESV (Teich) 31.90 mL LV Diastology E Decel Time 187 (160-240 msec) E/A Ratio 1.1 Mitral Valve MV E Max Tyrone. 82.0 (40-130 cm/s) MV A Velocity 76.0 (40-130 cm/s) E/A Ratio 1.09 MV PHT 55.0 ms Left Ventricle The left ventricle is normal size. The left ventricular systolic function is normal. The left ventricular ejection fraction is within the normal range. There is normal left ventricular wall thickness. There is normal LV segmental wall motion. The left ventricular diastolic function is normal. LVEF is 55%. Right Ventricle The right ventricle is normal size. The right ventricular systolic function is normal. Atria Left atrium is mildly dilated. Right atrium is mildly dilated. There is no Doppler evidence of interatrial shunt. Aortic Valve The aortic valve opens well. There is no aortic valvular stenosis. No aortic regurgitation is present. Mitral Valve The mitral valve is normal in structure. No evidence of mitral valve stenosis. Mild mitral regurgitation. Tricuspid Valve The tricuspid valve leaflets are thin and pliable. Mild tricuspid regurgitation. RVSP is 25-30 mmHg. Pulmonic Valve The pulmonary valve is normal in structure. Trace pulmonic regurgitation. Great Vessels The aortic root is normal in size. The ascending aorta is not well visualized. IVC is normal in size and collapses >50% with inspiration. Pericardium There is no pericardial effusion. Other Information Study Quality: Fair Conclusion Normal biventricular systolic function. Mild biatrial dilation. Mild MR, mild TR. Electronically signed by : Natasha Gonzalez MD 08/26/2023 15:11:32
== END 2023-08-22 23:59 | disposition home or self-care (01) ==
LOC: RT 08:35
PROVIDERS: PCP Nurse Practitioner Family; Visit Provider Nurse Practitioner Family
DX: R06.00 Dyspnea, unspecified (principal)
CPT/HCPCS: 93306

== ENCOUNTER 2023-09-22 09:51 | Outpatient (CLI) | payer MEDICARE, SELFPAY ==
[2023-09-22 09:58] LABS: Microscopic, Urine URINE MICROSCOPIC (MICROSCOPIC)
[2023-09-22 10:26] LABS: Appearance,Urine CLEAR (Clear); Bilirubin,Urine Negative (Negative); Blood, Urine 1+ (Negative); Color,Urine YELLOW (Yellow); Glucose,Urine (UA) Negative (Negative); Ketones,Urine Negative (Negative); Leukocyte Esterase,Urine 3+ (Negative); Nitrate,Urine Negative (Negative); Protein,Urine 1+ (Negative); Urobilinogen,Urine 0.2 EU/dl (0.2)
[2023-09-22 12:22] LABS: Bacteria,Urine 1+ /lpf; RBC,Urine Occasional #/hpf (0-3); WBC,Urine TNTC #/hpf (0-3)
== END 2023-09-22 23:59 | disposition home or self-care (01) ==
LOC: LAB 09:52
PROVIDERS: PCP Nurse Practitioner Family; Visit Provider Nurse Practitioner Family
DX: N39.0 Urinary tract infection, site not specified (principal); B96.1 Klebsiella pneumoniae [K. pneumoniae] as the cause of diseases classified elsewhere
CPT/HCPCS: 81001; 87086; 87088; 87186

== ENCOUNTER 2023-11-01 09:05 | Outpatient (CLI) | payer MEDICARE, SELFPAY ==
[2023-11-01 16:47] LABS: Microscopic, Urine URINE MICROSCOPIC (MICROSCOPIC)
[2023-11-01 18:00] LABS: Appearance,Urine CLEAR (Clear); Bilirubin,Urine Negative (Negative); Blood, Urine Negative (Negative); Color,Urine YELLOW (Yellow); Glucose,Urine (UA) Negative (Negative); Ketones,Urine Negative (Negative); Leukocyte Esterase,Urine 1+ (Negative); Nitrate,Urine Negative (Negative); Protein,Urine Negative (Negative); Specific Gravity, Urine 1.015 (1.005-1.030); Urobilinogen,Urine 0.2 EU/dl (0.2)
[2023-11-01 18:32] LABS: RBC,Urine Occasional #/hpf (0-3); WBC,Urine Occasional #/hpf (0-3)
[2023-11-01 18:33] LABS: Bacteria,Urine 1+ /lpf; Yeast,Urine 4+ /lpf
== END 2023-11-01 23:59 | disposition home or self-care (01) ==
LOC: LAB.DROPOF 11-03 09:08
PROVIDERS: PCP Nurse Practitioner Family; Visit Provider Nurse Practitioner Family
DX: N39.0 Urinary tract infection, site not specified (principal)
CPT/HCPCS: 81001; 87086; 87088; 87106

== ENCOUNTER 2023-11-07 14:13 | Outpatient (CLI) | payer MEDICARE, SELFPAY ==
[2023-11-07 12:51] LABS: Microscopic, Urine URINE MICROSCOPIC (MICROSCOPIC)
[2023-11-07 13:07] LABS: Basophils # 0.1 K/mm3 (0-0.2); Basophils % 1.2 % (0.1-2.0); Eosinophils # 0.1 K/mm3 (0.0-0.4); Eosinophils % 2.4 % (0.1-12.0); Hematocrit 46.3 % (37.0-47.0); Hemoglobin 14.2 g/dL (12.2-16.2); Lymphocytes # 1.5 K/mm3 (0.7-4.5); Lymphocytes % 25.8 % (10-50); Mean Corpuscular HGB Conc 30.6 g/dL (31.8-35.4); Mean Corpuscular Hemoglobin 30.1 pg (27.0-31.2); Mean Corpuscular Volume 98.3 fl (81-99); Mean Platelet Volume 9.1 fl (7.4-10.4); Monocytes # 0.3 K/mm3 (0.1-1.0); Monocytes % 5.4 % (1.7-9.3); Neutrophils # 3.9 K/mm3 (1.8-7.8); Neutrophils % 65.2 % (37.0-80.0); Platelet Count 291 K/mm3 (142-424); Red Blood Count 4.71 M/mm3 (4.20-5.40); Red Cell Distribution Width 13.5 % (11.5-17.5); White Blood Count 5.9 K/mm3 (4.8-10.8)
[2023-11-07 13:39] LABS: Hemoglobin A1C 10.6 % (4.0-6.0)
[2023-11-07 13:40] LABS: Albumin Level 4.2 g/dl (3.5-5.0); Chloride 104 mmol/L (98-107)
[2023-11-07 13:41] LABS: Potassium 4.7 mmoL/L (3.5-5.1); Sodium 136 mmol/L (136-145)
[2023-11-07 13:43] LABS: Alanine Aminotransferase 18 U/L (12-78); Anion Gap 7.7 mEq/L (5-15); Aspartate Amino Transferase 30 U/L (14-36); Blood Urea Nitrogen 18 mg/dl (7-17); Carbon Dioxide 29 mmol/L (22.0-30.0); Estimated Glomerular Filt Rate 48 ml/min (>60); GFR (African American) 58 ML/MIN (>60)
[2023-11-07 13:44] LABS: Albumin/Globulin Ratio 1.6 (1.1-1.8); Alkaline Phosphatase 70 U/L (38-126); Bilirubin,Total 0.6 mg/dl (0.2-1.3); Calcium 9.6 mg/dl (8.4-10.2); Chol/HDL Ratio 4.1 (1-3.5); Cholesterol 179 mg/dl (140-200); Globulin 2.6 g/dL (1.3-3.2); Glucose 231 mg/dl (74-100); HDL Cholesterol 44 mg/dl (40-60); Total Protein,Serum 6.8 g/dl (6.3-8.2); Triglycerides 143 mg/dl (30-150); VLDL Cholesterol 29 mg/dL (0-40)
[2023-11-07 13:57] LABS: Direct LDL Cholesterol 89.66 mg/dL (100-129)
[2023-11-07 14:15] LABS: Appearance,Urine CLEAR (Clear); Bilirubin,Urine Negative (Negative); Blood, Urine Negative (Negative); Color,Urine YELLOW (Yellow); Glucose,Urine (UA) 2+ (Negative); Ketones,Urine Negative (Negative); Leukocyte Esterase,Urine TRACE (Negative); Nitrate,Urine Negative (Negative); PH,Urine 5.5 (5.0-8.5); Protein,Urine Negative (Negative); Specific Gravity, Urine 1.025 (1.005-1.030); Urobilinogen,Urine 0.2 EU/dl (0.2)
[2023-11-07 14:29] LABS: Bacteria,Urine 1+ /lpf; RBC,Urine Occasional #/hpf (0-3)
[2023-11-07 15:31] LABS: HIV (1&2) Antibody Rapid NONREACTIVE (NONREACTIVE)
[2023-11-07 23:16] LABS: 25-OH Vitamin D, Total 33.1 ng/mL (30-100)
[2023-11-08 08:04] LABS: HCV Ab Non Reactive (Non Reactive)
== END 2023-11-07 23:59 | disposition home or self-care (01) ==
LOC: LAB.DROPOF 14:13
PROVIDERS: PCP Nurse Practitioner Family; Visit Provider Nurse Practitioner Family
DX: E55.9 Vitamin D deficiency, unspecified (principal); E11.65 Type 2 diabetes mellitus with hyperglycemia; Z79.4 Long term (current) use of insulin; R53.83 Other fatigue; Z11.59 Encounter for screening for other viral diseases; N39.0 Urinary tract infection, site not specified; E78.5 Hyperlipidemia, unspecified; Z11.4 Encounter for screening for human immunodeficiency virus [HIV]
CPT/HCPCS: 80053; 80061; 81001; 82306; 83036; 85025; 86803; 87086; 87389

== ENCOUNTER 2024-02-06 12:10 | Outpatient (CLI) | payer MEDICARE, SELFPAY ==
[2024-02-06 14:26] LABS: Chloride 103 mmol/L (98-107); Sodium 134 mmol/L (136-145)
[2024-02-06 14:27] LABS: Potassium 4.6 mmoL/L (3.5-5.1)
[2024-02-06 14:29] LABS: Blood Urea Nitrogen 18 mg/dl (7-17); Estimated Glomerular Filt Rate 48 ml/min (>60); GFR (African American) 58 ML/MIN (>60)
[2024-02-06 14:30] LABS: Anion Gap 6.6 mEq/L (5-15); Calcium 9.4 mg/dl (8.4-10.2); Carbon Dioxide 29 mmol/L (22.0-30.0); Chol/HDL Ratio 4.2 (1-3.5); Cholesterol 167 mg/dl (140-200); Glucose 134 mg/dl (74-100); HDL Cholesterol 40 mg/dl (40-60); Triglycerides 127 mg/dl (30-150); VLDL Cholesterol 25 mg/dL (0-40)
[2024-02-06 14:45] LABS: Direct LDL Cholesterol 92.63 mg/dL (100-129)
[2024-02-06 14:48] LABS: Hemoglobin A1C 9.9 % (4.0-6.0)
[2024-02-06 16:36] LABS: Microscopic, Urine URINE MICROSCOPIC (MICROSCOPIC)
[2024-02-06 17:41] LABS: Bilirubin,Urine Negative (Negative); Blood, Urine Negative (Negative); Color,Urine YELLOW (Yellow); Glucose,Urine (UA) Negative (Negative); Ketones,Urine Negative (Negative); Leukocyte Esterase,Urine 3+ (Negative); Nitrate,Urine POSITIVE (Negative); Protein,Urine Negative (Negative); Urobilinogen,Urine 0.2 EU/dl (0.2)
[2024-02-06 17:50] LABS: Appearance,Urine Cloudy (Clear)
[2024-02-06 17:57] LABS: Bacteria,Urine 3+ /lpf; WBC,Urine 20-50 #/hpf (0-3)
[2024-02-06 20:48] LABS: 25-OH Vitamin D, Total 37.1 ng/mL (30-100)
== END 2024-02-06 23:59 | disposition home or self-care (01) ==
LOC: LAB.DROPOF 02-07 10:20
PROVIDERS: PCP Nurse Practitioner Family; Visit Provider Nurse Practitioner Family
DX: E78.5 Hyperlipidemia, unspecified (principal); E11.65 Type 2 diabetes mellitus with hyperglycemia; Z79.4 Long term (current) use of insulin; E55.9 Vitamin D deficiency, unspecified; R39.9 Unspecified symptoms and signs involving the genitourinary system; B37.49 Other urogenital candidiasis
CPT/HCPCS: 80048; 80061; 81001; 82306; 83036; 87086; 87088; 87186

== ENCOUNTER 2024-05-03 12:28 | Outpatient (CLI) | payer MEDICARE, SELFPAY ==
[2024-05-03 12:32] LABS: Microscopic, Urine URINE MICROSCOPIC (MICROSCOPIC)
[2024-05-03 12:59] LABS: Basophils % 0.7 % (0.1-2.0); Eosinophils # 0.1 K/mm3 (0.0-0.4); Eosinophils % 1.8 % (0.1-12.0); Hematocrit 39.2 % (37.0-47.0); Hemoglobin 12.8 g/dL (12.2-16.2); Lymphocytes # 1.9 K/mm3 (0.7-4.5); Lymphocytes % 35.6 % (10-50); Mean Corpuscular HGB Conc 32.7 g/dL (31.8-35.4); Mean Corpuscular Hemoglobin 29.6 pg (27.0-31.2); Mean Corpuscular Volume 90.7 fl (81-99); Mean Platelet Volume 10.6 fl (7.4-10.4); Monocytes # 0.5 K/mm3 (0.1-1.0); Monocytes % 8.7 % (1.7-9.3); Neutrophils # 2.9 K/mm3 (1.8-7.8); Platelet Count 313 K/mm3 (142-424); Red Blood Count 4.32 M/mm3 (4.20-5.40); Red Cell Distribution Width 13.1 % (11.5-17.5); White Blood Count 5.4 K/mm3 (4.8-10.8)
[2024-05-03 13:32] LABS: Erythrocyte Sedimentation Rate 13 mm/hr (0-30)
[2024-05-03 13:58] LABS: Albumin Level 4.6 g/dl (3.5-5.0); Chloride 104 mmol/L (98-107); Potassium 4.3 mmoL/L (3.5-5.1); Sodium 139 mmol/L (136-145)
[2024-05-03 14:00] LABS: Alanine Aminotransferase 21 U/L (12-78); Aspartate Amino Transferase 34 U/L (14-36); Bilirubin,Total 0.4 mg/dl (0.2-1.3); Blood Urea Nitrogen 16 mg/dl (7-17); Estimated Glomerular Filt Rate 44 ml/min (>60); GFR (African American) 53 ML/MIN (>60)
[2024-05-03 14:01] LABS: Albumin/Globulin Ratio 1.9 (1.1-1.8); Alkaline Phosphatase 59 U/L (38-126); Anion Gap 9.3 mEq/L (5-15); Calcium 9.7 mg/dl (8.4-10.2); Carbon Dioxide 30 mmol/L (22.0-30.0); Cholesterol 174 mg/dl (140-200); Globulin 2.4 g/dL (1.3-3.2); Glucose 77 mg/dl (74-100); Iron 85 ug/dL (37-170); Magnesium 1.9 mg/dl (1.6-2.3); Phosphorous 3.5 mg/dl (2.5-4.5); Triglycerides 96 mg/dl (30-150); VLDL Cholesterol 19 mg/dL (0-40)
[2024-05-03 14:02] LABS: HDL Cholesterol 58 mg/dl (40-60)
[2024-05-03 14:13] LABS: Total Iron Binding Capacity 429 ug/dL (265-497)
[2024-05-03 14:14] LABS: Direct LDL Cholesterol 82.39 mg/dL (100-129); Hemoglobin A1C 8.6 % (4.0-6.0)
[2024-05-03 14:22] LABS: Creatinine,Urine Random 94 mg/dL (Not Estab.)
[2024-05-03 14:29] LABS: Microalbumin/Creatinine Ratio 14.6
[2024-05-03 14:32] LABS: Appearance,Urine Clear (Clear); Blood, Urine Trace (Negative); Color,Urine Yellow (Yellow); Glucose,Urine (UA) Negative (Negative); Ketones,Urine Negative (Negative); Nitrate,Urine Negative (Negative); PH,Urine 5.5 (5.0-8.5); Protein,Urine Negative (Negative); Specific Gravity, Urine 1.025 (1.005-1.030)
[2024-05-03 14:33] LABS: Bacteria,Urine Trace /lpf; Bilirubin,Urine Negative (Negative); Leukocyte Esterase,Urine 3+ (Negative); Squamous Epithelial Cell,Urine Occasional #/hpf (0-5); Thyroid Stimulating Hormone 3.17 uIU/mL (0.465-4.68); Urobilinogen,Urine 0.2 EU/dl (0.2); WBC,Urine 50-100 #/hpf (0-3)
[2024-05-03 14:37] LABS: Ferritin 36.6 ng/ml (11.1-264)
[2024-05-03 15:05] LABS: 25-OH Vitamin D, Total 52.5 ng/mL (30-100); Free T4 (Free Thyroxine) 1.42 ng/dl (0.78-2.19)
[2024-05-03 15:15] LABS: Vitamin B12 381 pg/mL (239-931)
[2024-05-04 13:56] LABS: Anti-Centromere B Antibodies <0.2 AI (0.0-0.9); Anti-DNA (DS) Ab Qn 1 IU/mL (0-9); Anti-Jo-1 <0.2 AI (0.0-0.9); Anti-Smith Antibody <0.2 AI (0.0-0.9); Antichromatin Antibodies <0.2 AI (0.0-0.9); Antiscleroderma-70 Antibodies <0.2 AI (0.0-0.9); RNP Antibodies 0.4 AI (0.0-0.9); Sjogren's Anti-SS-A <0.2 AI (0.0-0.9); Sjogren's Anti-SS-B <0.2 AI (0.0-0.9)
[2024-05-08 07:19] LABS: Zinc 82 ug/dL (44-115)
== END 2024-05-03 23:59 | disposition home or self-care (01) ==
LOC: LAB 12:29
PROVIDERS: PCP Nurse Practitioner Family; Visit Provider Nurse Practitioner Family
DX: K80.20 Calculus of gallbladder without cholecystitis without obstruction (principal); R53.83 Other fatigue; E55.9 Vitamin D deficiency, unspecified; R10.9 Unspecified abdominal pain; K86.9 Disease of pancreas, unspecified; G62.9 Polyneuropathy, unspecified; E78.5 Hyperlipidemia, unspecified; N32.81 Overactive bladder; K21.9 Gastro-esophageal reflux disease without esophagitis; D64.9 Anemia, unspecified; N28.9 Disorder of kidney and ureter, unspecified; L60.3 Nail dystrophy; B35.1 Tinea unguium; L60.8 Other nail disorders; E11.65 Type 2 diabetes mellitus with hyperglycemia; Z79.4 Long term (current) use of insulin; R41.3 Other amnesia; G47.33 Obstructive sleep apnea (adult) (pediatric); I10 Essential (primary) hypertension; E11.9 Type 2 diabetes mellitus without complications; M79.605 Pain in left leg; M79.604 Pain in right leg
CPT/HCPCS: 36415; 80053; 80061; 81001; 82043; 82306; 82570; 82607; 82728; 83036; 83540; 83550; 83735; 84100; 84156; 84439; 84443; 84630; 85025; 85651; 86225; 86235; 87086; 87088; 87186

== ENCOUNTER 2024-05-17 08:45 | Outpatient (CLI) | payer MEDICARE, SELFPAY ==
--- NOTE | 2024-05-17 08:48 | MR_ITS ---
FINAL REPORT TECHNIQUE: Multiplanar and multisequence imaging was obtained before and after the intravenous injection of gadolinium contrast. In addition, an MRCP was performed with 3D reconstructions to evaluate the biliary tree. CLINICAL HISTORY: abd pain, pancreatic lesions, gallstones. PAIN ON LEFT SIDE AND EPIGASTRIC PAIN XYEARS. HX GALLSTONES. NAUSEA AND VOMITING. CT DONE AT [facility] COMPARISON: None FINDINGS: The liver is homogeneous, without focal hepatic lesion. The spleen is normal in size and signal intensity. The adrenal glands are without acute abnormality. There are multiple small foci of increased signal on T2 weighted images within the pancreas. An index lesion in the tail of the pancreas measures 12 mm on axial imaging. There is no hydronephrosis or renal mass. The kidneys are unremarkable. Limited evaluation of the GI tract is without acute abnormality. There is no abdominal lymphadenopathy or ascites. MRCP: The gallbladder is present, with multiple small stones present. The common bile duct is normal in caliber. No filling defect or stricture is noted in the common bile duct. The main pancreatic duct is not dilated. There appears to be communication between the small cystic lesions in the pancreas and pancreatic duct. This suggests that some may be sidebranch IPMN's. Postcontrast imaging: No hypervascular liver lesions are present. Enhancement of the spleen and adrenal glands are normal. The portal vein and hepatic veins are patent. The T2 hyperintense lesions within the pancreas do not enhance, although evaluation is somewhat limited by motion. IMPRESSION: Gallstones. No common duct filling defect or stricture. 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 Some of the lesions may represent epithelial cysts. Recommend 6 to 12-month follow-up MRCP for comparison. Reviewed, Interpreted and Dictated by Malka Paez MD Transcribed by Malathi Barkley Authenticated and [facility]
[2024-05-17] MEDS: SODIUM CHLORIDE 0.9% 10ML SYR (RAD ONLY) 10 ML IV (09:55)
[2024-05-17] MEDS: GADOTERIDOL INJ 20ML SYRINGE 18 ML IV (09:55)
[2024-05-17] MEDS: SODIUM CHLORIDE 0.9% 50ML BAG 20 ML IV (09:55)
== END 2024-05-17 23:59 | disposition home or self-care (01) ==
LOC: RAD 08:45
PROVIDERS: PCP Nurse Practitioner Family; Visit Provider Nurse Practitioner Family
DX: K80.20 Calculus of gallbladder without cholecystitis without obstruction (principal); R10.9 Unspecified abdominal pain; K86.9 Disease of pancreas, unspecified; R53.83 Other fatigue; E55.9 Vitamin D deficiency, unspecified; G62.9 Polyneuropathy, unspecified; E78.5 Hyperlipidemia, unspecified; N32.81 Overactive bladder; K21.9 Gastro-esophageal reflux disease without esophagitis; D64.9 Anemia, unspecified; N28.9 Disorder of kidney and ureter, unspecified; L60.3 Nail dystrophy; B35.1 Tinea unguium; E11.65 Type 2 diabetes mellitus with hyperglycemia; Z79.4 Long term (current) use of insulin
CPT/HCPCS: 74183; 76376; A9576

== ENCOUNTER 2024-05-30 09:13 | Outpatient (CLI) | payer MEDICARE, SELFPAY ==
--- NOTE | 2024-05-30 09:14 | XR_ITS ---
FINAL REPORT CLINICAL HISTORY: osteopenia FINDINGS: Using L1-4, the bone mineral density of the spine is 0.825 g/cm2, corresponding to T-score of -2.0. Using the left hip, the bone mineral density of the femoral neck is 0.578 g/cm2, corresponding to a T-score of -2.4. Using the right hip, the bone mineral density of the femoral neck is 0.599 g/cm2, corresponding to a T-score of -2.3. IMPRESSION: Osteopenic bone mineral density of the lumbar spine and hips. NOTE: T-score: Standard deviation compared with peak bone mass of young adult mean. *Following the recommendations of the International Society of Bone densitometry, classification of hip BMD is based on the lower of two T-scores; total hip or femoral neck. Reviewed, Interpreted and Dictated by Luan Church MD Transcribed by Kristy Silverman Authenticated and [facility]
--- OUTSIDE RECORDS SUMMARY | 2024-05-31 21:54 | XMS_ITS ---
Laboratory report Created on: May 10, 2024 CARLOS MAYNARD : 03/10/1949 Sex: Female Author Organization Unknown PROBLEMS Problems List Code Description RESULTS Laboratory Orders Date Order Code Test 2024-05-03 134943 ANTINUCLEAR AB 9 BY MULTIPLEX 2024-05-03 715112 ZINC, PLASMA OR SERUM Laboratory Results Date LOINC Test Value Unit Reference Range Interpre tation 2024-05-03 5130-0 ANTI-DNA (DS) AB QN 1 IU/ML 0-9 2024-05-03 28988-8 [employer] ANTIBODIES .4 AI 0.0-0.9 2024-05-03 55219-9 NORTON ANTIBODIES <0.2 AI 0.0-0.9 2024-05-03 20115-9 ANTISCLERODERMA- 70 ANTIBODIES <0.2 AI 0.0-0.9 2024-05-03 83268-9 SJOGREN'S ANTI-SS-A <0.2 AI 0.0-0.9 2024-05-03 18888-1 SJOGREN'S ANTI-SS-B <0.2 AI 0.0-0.9 2024-05-03 53843-1 ANTICHROMATIN ANTIBODIES <0.2 AI 0.0-0.9 2024-05-03 03168-7 ANTI-STACY-1 <0.2 AI 0.0-0.9 2024-05-03 54258-1 ANTI-CENTROMERE B ANTIBODIES <0.2 AI 0.0-0.9 2024-05-03 5763-8 ZINC, PLASMA OR SERUM 82 UG/DL 44-115
--- OUTSIDE RECORDS SUMMARY | 2024-05-31 21:54 | XMS_ITS | Data Portability ---
Author Organization [place] - Corinne ABRAM Monter[facility] [place] [facility] Address [address] [place] [address] Assessment No assessment recorded. Plan of Treatment Reminders Order Date Submit Date Provider Last Modified By Organization Details Last Modified Time Details Appointments None recorded. Lab None recorded. Referral physical therapist referral 2018 019 [email or web address] Not available 9 10:16:50 Procedures None recorded. Surgeries None recorded. Imaging XR, hip, unilateral , 2 or 3 view 2018 019 [facility] Radiology [facility], [address] [place] [address], [id number], 9 10:32:23 Medication Orders None recorded. Patient TargetsNo targets recorded. Patient InstructionsNo instructions recorded. Reason for Referral Physical Therapist Referral for Pain of left hip joint Referring Physician: Larry Easley, Rheumatology, Encounter Date: 11/08/2018 Results Created Date Observation Date Name Description Value Unit Range Abnormal Flag Note LastModifiedBy Organization Detail LastModifiedTime 11/09/19 19 11/08/2018 XR, hip, unila teral , [facility] [address] [address] Patien t Name: KEREN schilling : [phone] Patipascale schilling Orderi ng Provid er: ALYSA EASLEY EXAM DATE: 2018 EXAM: XR LT HIP UNILAT ERAL, 2 OR 3 VWS COMPAR ROSANNE: None. HISTOR Y: Left hip pain FINDIN GS: Good preser vation of the weight bearin g surfac es of both hips. Mild bilate ral hip joint degene wanda traore ng is presen t. No fractu re or disloc ation. No suspic ious intrao sseous lesion IMPRES LEONEL: Mild bilate ral hip DJD Interp reted By: Collin Mccullough MD Electr onical ly Signed By: Collin Mccullough MD on 019 10:[address] Radiology [facility] [address] [place], [address], 11/08/2018 12:43:47 Result Notes None recorded. Problems No Known Problems Procedures Surgical History None recorded. Imaging Results Imaging Date Name Status LastModified by Organiz ation Details LastModified Time 11/08/2018 XR, hip, unilateral , 2 or 3 view completed [address] Radiology [facility] [address] [place], [address], 11/08/2018 12:43:47 Procedure Notes None recorded. Medical Equipment None Reported. Allergies Allergen ID Allergen Name Allergen Category Reaction Reaction Severity Criticality Documentation Date Start Date Code Code System Note Provider Name and Address Organization Details Recorded Time 513446 codeine medicatio n Not available Not available Not available 11/08/2018 2670 RxNorm Cathy Castaneda [facility] 9 09:22:37 Medications Name Sig Start Date Stop Date Status Note LastModified by Organization Details LastModified Time atorvastatin 80 mg tablet Take 1 tablet every day by oral route. active Not Available Not Available No t Available glipizide 5 mg tablet Take 1 tablet twice a day by oral route. active Not Available Not Available No t Available Arthritis Pain Relief (acetaminophen ) ER 650 mg tablet,extend release Take 2 tablets every 8 hours by oral route. active Not Available Not Available No t Available meloxicam active Not Available Not Stephenie ilable Not Available Vitamin D3 active Not Available Not Av ailable Not Available Vitals Date Recorded Body weight Body mass index (BMI) Body height Heart rate Respiratory rate Systolic blood pressure Diastolic blood pressure Provider Name and Address Organization Details Last Updated DateTime 9 76057.3 3 g 30.2 kg/m2 170.18 cm 61 /min 18 /min 160 mm[Hg] 84 mm[Hg] Cathy Castaneda [facility] 9 09:22:14 Date Recorded Body height Body temperature Provider N christiano and Address Organization Details Last Updated DateTime 08/01/2019 170.18 cm 97 [degF] LARRY EASLEY MD [address] [place], [address] 08/01/2019 10:31:40 Social History Question Answer Notes LastModified by Organizat ion Details LastModified Time Tobacco Smoking Status Never Smoker Cathy Castaneda [facility] 11/08/2018 09:25:05 How Much Tobacco Do You Chew? None [email or web address] Information not available 11/08/2018 Do You Or Have You Ever Used E-cigarettes Or Vape? Never Used Electronic Cigarettes [email or web address] Information not available 11/08/2018 What Was The Date Of Your Most Recent Tobacco Screening? 11/08/2018 [email or web address] Information not available 11/08/2018 Do You Or Have You Ever Used Smokeless Tobacco? Never Used Smokeless Tobacco [email or web address] Information not available 11/08/2018 How Much Tobacco Do You Smoke? No [email or web address] Information not available 11/08/2018 How Many Years Have You Smoked Tobacco? 0 Information not available 11/08/2018 Sex: Unknown Functional Status None recorded. Mental Status None recorded. Family History Nothing Reported. Medical History Condition Response Diabetes Y Bleeding Disorder N Arthritis Y Emphysema N Acid Reflux (GERD) Y Heart Disease N Rheumatoid Arthritis N Hypertension N COPD N Asthma N Gynecological HistoryNo gynecological history recorded. Obstetrics History GPAL:G 0 P 0 0 0 0 Past Encounters Encounter ID Performer Location Encounter Start Date Encounter Closed Date Diagnosis/Indication Diagnosis SNOMED-CT Code Diagnosis ICD10 Code Diagnosis Note [id number] LARRY EASLEY MD [facility] [address] [place] [address] 11/08/2018 08:46:45 11/08/2018 10:17:13 Pain of left hip joint 9204108510 62409 M25.552 69-year-ol d female with clinical evidence of rather advance left hip osteoarthr itis beside generalize d osteoarthr itis. No evidence of rheumatoid arthritis or inflammato ry joint disease noted. No evidence of myopathy or myositis noted. Further she does not have any clinical evidence of fibromyalg ia syndrome. Her lab work shows a negative rheumatoid factor, normal ESR, negative PORSHA screen and a normal uric acid levels. today I educated her about osteoarthr itis in general and more specific left hip osteoarthr itis. I have suggested her to obtain left hip x-ray and based on the x-ray, we can discuss the possibilit y of therapeuti c intra-delma cular steroid injection. Certainly, she needs to watch her blood sugar after the steroid shot. Further, modest weight loss encouraged through calorie restricted diet. We'll also start her on physical therapy for the next 6 weeks. If she failed to show any improvemen t with this conservati ve approach, we might have to consider left hip MRI examinatio n. The x-rays reviewed with the patient. The findings are only modest osteoarthr itis in the right and left hip. No evidence of osteonecro sis noted. No fracture noted. She would like to hold off on steroid injection and she'll pursue physical therapy. She will call me with her progress after 3 months. No follow-up needed at this point. [id number] LARRY EASLEY MD RHEUMATOL [facility] [address] [place] [address] 08/01/2019 08:07:10 08/01/2019 10:42:43 Chronic low back pain [id number] M54.5 Ongoing left L5-S1 radicular symptoms. Followed by pain management . Post-MRI examinatio n and is going through physical therapy. She has refused epidural injections . I suggested her to follow with the pain clinic and discuss other options such as rhizotomie s or spinal cord stimulator . She also needs to work on better diabetes control. As far as has hips are concerned, has only modest disease. I don't see need for any other active interventi ons. She'll return to rheumatolo gy as needed Health Concerns Section Related Observation LastModified by Organization Detai ls LastModified Time None Recorded Concern Status LastModified by Organization Details LastModified Time None Recorded Advance Directives Directive None Recorded Payers Encounter Date Sequence Insurance Name Policy Number Policy Sage Covered Member ID Sage Member ID Guarantor Name 11/08/2018 1 [place]ARE[place] Keren Wright [id number] Keren Wright 11/08/2018 2 [employer] OPTIONS (MEDICARE SUPPLEMENT) PLAN N Keren Wright [id number] Keren Wright 08/01/2019 1 [place] Keren Wright [id number] Keren Wright 08/01/2019 2 [employer] OPTIONS (MEDICARE SUPPLEMENT) PLAN N Keren Wright [id number] Keren Wright Notes Date Note Type Note Provider Name and Address Organization Details Recorded Time 11/08/2018 text/html seen as a new patient. she has chronic pains, going on for the past several years. Lately has more pains in left hip, that goes down to the left leg. positive pain in the left groin. Denies any low back pain. She is ambulating without support although at times does like to use cane because of instability. Denies any loss of bladder control. Denies any loss of bowel control. Most recent labs including: RF, PORSHA screen, ESR and Uric acid tests were all normal. she denies any injury or falls. Denies any tingling in her legs. she can sleep w/o pains. further history is significant for diabetes mellitus which she is trying to control the best she can. She denies any history of psoriasis, inflammatory bowel disease, iritis or uveitis. ALRRY EASLEY MD [address] [place] [address], [phone], [facility] 11/08/2018 11:07:54 08/01/2019 text/html The patient has requested and consented to a tele-leticia appointment today. Due to the current state of emergency it is appropriate to address patient? s medical need via a telehealth appointment. follow-up on osteoarthritis. In the interval, she was evaluated by pain clinic and had MRI examination of spine. Diagnosed as degenerative disc disease and is now going through physical therapy for the last 3 months. She has refused epidural steroid injections.she has chronic diabetes not well controlled, denies any falls. Denies any injuries. She has tried gabapentin but failed to tolerate. LARRY EASLEY MD [address] [place] [address], [phone], [facility] 08/01/2019 10:35:30 OBGyn Episode No OBEpisode recorded.
== END 2024-05-30 23:59 | disposition home or self-care (01) ==
LOC: RAD 09:14
PROVIDERS: PCP Nurse Practitioner Family; Visit Provider Nurse Practitioner Family
DX: M81.0 Age-related osteoporosis without current pathological fracture (principal); M85.89 Other specified disorders of bone density and structure, multiple sites
CPT/HCPCS: 77080

== ENCOUNTER 2024-07-12 12:25 | Outpatient (CLI) | payer MEDICARE, SELFPAY ==
[2024-07-16 07:09] LABS: Pancreatic Elastase, Fecal 301 (>200)
== END 2024-07-12 23:59 | disposition home or self-care (01) ==
LOC: LAB 12:25
PROVIDERS: PCP Nurse Practitioner Family; Visit Provider Nurse Practitioner Family
DX: R14.0 Abdominal distension (gaseous) (principal)
CPT/HCPCS: 82656

== ENCOUNTER 2024-08-02 15:54 | Outpatient (CLI) | payer MEDICARE, SELFPAY ==
[2024-08-02 14:49] LABS: Albumin Level 3.8 g/dl (3.5-5.0); Chloride 102 mmol/L (98-107); Potassium 4.8 mmoL/L (3.5-5.1); Sodium 135 mmol/L (136-145)
[2024-08-02 14:52] LABS: Alanine Aminotransferase 17 U/L (12-78); Albumin/Globulin Ratio 1.6 (1.1-1.8); Alkaline Phosphatase 62 U/L (38-126); Anion Gap 7.8 mEq/L (5-15); Aspartate Amino Transferase 30 U/L (14-36); Bilirubin,Total 0.2 mg/dl (0.2-1.3); Blood Urea Nitrogen 12 mg/dl (7-17); Calcium 10.5 mg/dl (8.4-10.2); Carbon Dioxide 30 mmol/L (22.0-30.0); Estimated Glomerular Filt Rate 54 ml/min (>60); GFR (African American) 65 ML/MIN (>60); Globulin 2.4 g/dL (1.3-3.2); Glucose 75 mg/dl (74-100); Total Protein,Serum 6.2 g/dl (6.3-8.2)
[2024-08-02 15:06] LABS: Hemoglobin A1C 7.7 % (4.0-6.0)
--- OUTSIDE RECORDS SUMMARY | 2024-08-02 15:56 | XMS_ITS | Clinical Summary ---
Author Organization [facility] Address [address] [place] [address] Care Team Providers Care Physicist [facility] [employer] Name Role Phone Abraham Larsen MD Primary Care Provider + [phone] Allergies Active Allergy Reactions Criticality Noted Date Comments Codeine Swelling High 10/08/2017 Swelling in head Swelling in head Medications acetaminophen (Tylenol 8 Hour) 650 MG ER tablet every 8 (eight) hours. Active ascorbic acid (Vitamin C) 250 MG tablet Take 250 mg by mouth 1 (one) time each day. Active atorvastatin (Lipitor) 80 MG tablet 1 (one) time each day. Active cholecalciferol (Vitamin D-3) 50 MCG (1999 UT) tablet Take 2,000 Units by mouth 1 (one) time each day. Active famotidine (Pepcid) 20 MG tablet Take 20 mg by mouth twice a day. 2 Active fluticasone (Flonase) 50 MCG/ACT nasal spray Administer 2 sprays into affected nostril(s) 1 (one) time each day. Active glipiZIDE XL (Glucotrol XL) 5 MG 24 hr tablet Take 5 mg by mouth 1 (one) time each day. Active traMADol (Ultram) 50 MG tablet Take 50 mg by mouth. Active Zinc Sulfate 66 MG tablet Take by mouth. Activ e insulin NPH-insulin regular (70-30) 100 UNIT/ML injection Inject under the skin 2 (two) times a day before meals. Active Active Problems Problem Noted Date Diagnosed Date Awareness under anesthesia 04/24/2021 Diabetes mellitus, type 2 04/24/2021 Gastroesophageal reflux disease 04/24/2021 TIA (transient ischemic attack) 04/24/2021 Social History Tobacco Use Types Packs/Day Years Used Date Smoking Tobacco: Never Smokeless Tobacco: Never Alcohol Use Standard Drinks/Week Comments Never 0 (1 standard drink = 0.6 oz pur e alcohol) Comments Unknown Sex and Gender Information Value Date Recorded Sex Assigned at Not on file Legal Sex Female 8:22 AM EST Gender Identity Not on file Sexual Orientation Not on file Last Filed Vital Signs Vital Sign Reading Time Taken Comments Blood Pressure 151/73 04/24/2021 10:45 AM EST Pulse 54 04/24/2021 10:45 AM EST Temperature 36.6 C (97.8 F) 04/24/2021 10:04 AM EST Respiratory Rate 15 04/24/2021 10:45 AM EST Oxygen Saturation 100% 04/24/2021 10:45 AM EST Inhaled Oxygen Concentration - - Weight 78.5 kg (173 lb 1 oz) 04/24/2021 8:35 AM EST Height 170.2 cm (5' 7 ) 04/24/2021 8:35 AM EST Body Mass Index 27.11 04/24/2021 8:35 AM EST Plan of Treatment Upcoming Encounters Date Type Department Care Team (Late st Contact Info) Description 01/04/2025 10:00 AM EST Office Visit [facility] [address] [place] [address] Heydi Harris, WARE TESTER [address] [address] Health Maintenance Due Date Last Done Comments [facility]-Bone Density Scan 03/10/1949 [facility]-Depression Screening 03/10/1949 [facility]-Hepatitis C Screening 03/10/1949 [facility]-Medicare Annual Wellness (AWV) 03/10/1949 [facility]-/Child/Adol SDOH Screenings 03/11/1949 [id number] Vaccine (#1) 03/10/1954 [facility]- SDOH Screenings 03/10/1965 [facility]-Adult SDOH Screenings 03/10/1965 [facility]-Pneumococcal Vaccine: 50+ Years (2 of 2 - PPSV23) 11/14/2019 09/19/2019 [facility]-DTaP,Tdap,and Td Vaccines (1 - Tdap) 12/29/2021 12/28/2021 [facility]-RSV Vaccine: 60+ Years or (1 - 1-dose 75+ series) 03/10/2022 [facility]-Influenza Vaccine (Season Ended) 2024 10/10/2018, 11/10/2017, 11/02/2016 [facility]-Diabetes: Hemoglobin A1C Discontinued 10/09/2017 [facility]-Hepatitis A Vaccines Aged Out 019, 01/30/2018 No longer eligible based on patient's age to complete this topic [facility]-Zoster Vaccines Completed 03/14/2023, 10/18/2022 HPV Vaccines Aged Out No longer eligi ble based on patient's age to complete this topic [facility]-HIB Vaccines Aged Out No longer e ligible based on patient's age to complete this topic [facility]-IPV Vaccines Aged Out No longer e ligible based on patient's age to complete this topic [facility]-Rotavirus Vaccines Aged Out No lo nger eligible based on patient's age to complete this topic Insurance [facility] MEDICARE [facility] MEDICARE Care Teams Physicist [facility] [employer] Relationship Specialty Start Date End Date Abraham Larsen MD [address] [facility] [address] [place] [address] PCP - General 04/24/21
== END 2024-08-02 23:59 | disposition home or self-care (01) ==
LOC: LAB.DROPOF 15:54
PROVIDERS: PCP Nurse Practitioner Family; Visit Provider Nurse Practitioner Family
DX: E11.65 Type 2 diabetes mellitus with hyperglycemia (principal); Z79.4 Long term (current) use of insulin
CPT/HCPCS: 80053; 83036

== ENCOUNTER → 2024-09-10 11:47 | Day surgery (SDC) | payer MEDICARE, SELFPAY ==
[2024-09-07 14:04] VITALS: BMI 29.7
[2024-09-10 12:01] VITALS: BP 158/67; PULSE 69; RESP 16; TEMP 36.1; O2SAT 99
[2024-09-10] MEDS: LACTATED RINGERS 1000ML 1,000 ML 50 ML IV (12:18)
[2024-09-10 12:26] LABS: POC Glucose,Bedside 81 (70-110)
--- NOTE | 2024-09-10 12:32 | P.PNANES_ITS ---
[facility] Disclaimer: The information contained in this section may have been updated after the patient was seen, as this information can be updated by other users. Medical History Chronic kidney disease Diabetes mellitus, type 2 Diarrhea BMI 31.0-31.9,adult Yeast UTI Encounter for hepatitis C screening test for low risk patient Screening for HIV (human immunodeficiency virus) UTI due to Klebsiella species Vaginal yeast infection Cerumen impaction Vaginitis Upper respiratory infection Face lacerations Fall UTI (urinary tract infection) Hyperglycemia Sepsis ARIANA (acute kidney injury) Nontraumatic avulsion of nail plate Pain management Nausea Overweight (BMI 25.0-29.9) Low back pain Muscle cramps Overweight (BMI 25.0-29.9) Acquired hammer toes of both feet Right foot sprain Minor head injury Surgical History History of tubal ligation Social History Smoking Status: Never smoker alcohol intake: never substance use type: denies use current occupational status: retired Travel in the last 8 weeks?: None household members: children housing: house current occupational exposures/hazards: No caffeine: No Have you lived/traveled outside US in past 30 days?: No Contact w/someone who lives/traveled outside US past 30 days?: No Exposure to someone with infectious disease in past 14 days?: No Do you have a fever (greater than 100.4 F or 38 C)?: No Have you tested positive for COVID-19?: No Exposed to someone with COVID-19 in past 14 days?: No Do you have a sore throat?: No Do you have a cough?: No Do you have any weakness?: No Do you have any diarrhea?: No Are you experiencing any unusual bleeding?: No Do you have any muscle aches/pain?: No Do you have any abdominal pain?: No Are you experiencing loss of taste or smell?: No [facility] Anesthesia Checklist Patient Identification Patient Identification: Arm Band Structural Data Admitted From: Home Planned Operative Procedure/s: EGD Consent for Planned Operative Procedure(s) Verified: Yes Verified Documents: Surgical Consent and History and Physical NPO Status Verified Time NPO: 00:00 Additional verifications Anesthesia Reactions: No Airway Assessment Mallampati Score:: Class II C-Spine Mobility Assessed: Yes TMJ Mobility Assessed: Yes Dentition: Good Dentition Neurological Assessment Level of Consciousness: Awake, Alert and Appropriate Anesthesia Plan Anesthesia Risk discussed: Yes Anesthesia Plan: Verified ASA Class: II Anesthesia Type: MAC
--- NOTE | 2024-09-10 12:54 | EXP.HP ---
History of Present Illness *Admission Date: 09/10/24 *History of present illness: Mrs. Wright is a 75-year-old female who is here for diagnostic EGD secondary to dysphagia and globus sensation. She also has reflux and iron deficiency anemia. The examination is deemed medically necessary for diagnostic EGD. The patient has been seen, interviewed and examined prior to the procedure by both myself and the anesthesia provider. [facility] Disclaimer: The information contained in this section may have been updated after the patient was seen, as this information can be updated by other users. Medical History (Updated 09/10/24 @ 12:55 by Georges Claire II, MD) Chronic kidney disease Diabetes mellitus, type 2 Diarrhea BMI 31.0-31.9,adult Yeast UTI Encounter for hepatitis C screening test for low risk patient Screening for HIV (human immunodeficiency virus) UTI due to Klebsiella species Vaginal yeast infection Cerumen impaction Vaginitis Upper respiratory infection Face lacerations Fall UTI (urinary tract infection) Hyperglycemia Sepsis ARIANA (acute kidney injury) Nontraumatic avulsion of nail plate Pain management Nausea Overweight (BMI 25.0-29.9) Low back pain Muscle cramps Overweight (BMI 25.0-29.9) Acquired hammer toes of both feet Right foot sprain Minor head injury Surgical History History of tubal ligation Social History Smoking Status: Never smoker alcohol intake: never substance use type: denies use current occupational status: retired Travel in the last 8 weeks?: None household members: children housing: house current occupational exposures/hazards: No caffeine: No Have you lived/traveled outside US in past 30 days?: No Contact w/someone who lives/traveled outside US past 30 days?: No Exposure to someone with infectious disease in past 14 days?: No Do you have a fever (greater than 100.4 F or 38 C)?: No Have you tested positive for COVID-19?: No Exposed to someone with COVID-19 in past 14 days?: No Do you have a sore throat?: No Do you have a cough?: No Do you have any weakness?: No Do you have any diarrhea?: No Are you experiencing any unusual bleeding?: No Do you have any muscle aches/pain?: No Do you have any abdominal pain?: No Are you experiencing loss of taste or smell?: No Other Medical History Have you received the Flu Vaccine for this season: No Have you received the Pneumonia Vaccine: Yes Review of Systems Review of Systems Review of systems (narrative): Negative *Cardiovascular Comments: Negative *Gastrointestinal Comments: Negative *Genitourinary Comments: Negative *Musculoskeletal Comments: Negative *Neurologic Comments: Negative Meds Home Medications and Allergies Home Medications ?Medication ?Instructions ?Recorded ?Confirmed ?Type pen needle, diabetic 31 gauge x #100 ea 08/19/22 09/10/24 Rx 1/4 (Comfort EZ Pen Olympia) menthol 10.5 % topical spray 1 spray topical DAILYP PRN Muscle 05/02/23 09/10/24 History (Biofreeze (menthol)) Pain methyl salicylate 15 %-menthol 10 1 applic topical TID PRN Muscle 05/02/23 09/10/24 History % topical cream Pain cholecalciferol (vitamin D3) 50 50 mcg PO DAILY #90 caps 08/09/23 09/10/24 Rx mcg (2,000 unit) capsule fenofibrate nanocrystallized 145 145 mg PO DAILY #90 tabs 08/09/23 09/10/24 Rx mg tablet pen needle, diabetic 31 gauge x #1,200 ea 09/01/23 09/10/24 Rx 3/16 (BD Ultra-Fine Mini Pen Needle) blood sugar diagnostic (Accu-Chek #100 ea 05/03/24 09/10/24 Rx Guide test strips) famotidine 40 mg tablet 40 mg PO DAILY 05/03/24 09/10/24 History insulin glargine 100 unit/mL (3 70 unit SQ HS PRN Hyperglycemia 05/03/24 09/10/24 History mL) subcutaneous pen (Lantus Solostar U-100 Insulin) linagliptin 5 mg tablet (Tradjenta) 5 mg PO DAILY 05/03/24 09/10/24 History mecobalamin (vitamin B12) 1,000 1,000 mcg PO DAILY #90 tabs 05/03/24 09/10/24 Rx mcg chewable tablet lisinopril 10 1 tab PO QAM #90 tabs 06/07/24 09/10/24 Rx mg-hydrochlorothiazide 12.5 mg tablet acetaminophen 650 mg 650 mg PO Q8H PRN Pain, Moderate 07/05/24 09/10/24 History tablet,extended release (Tylenol 8 Hour) meloxicam 7.5 mg tablet 7.5 mg PO DAILYP PRN Pain 07/05/24 09/10/24 History pioglitazone 30 mg tablet (Actos) 30 mg PO DAILY 09/07/24 09/10/24 History New Prescriptions to Start Prescriptions: Allergies Allergy/AdvReac Type Severity Reaction Status Date / Time Uuhtqav-DIL-PcP Reductase Allergy Severe Muscle Pain Verified 09/10/24 12:01 Inhibitor sulfamethoxazole (From Allergy Severe rash, n/v, Verified 09/10/24 12:01 Bactrim) AMARO, dizziness trimethoprim (From Bactrim) Allergy Severe rash, n/v, Verified 09/10/24 12:01 AMARO, dizziness codeine Allergy Intermediate Drowsy Verified 09/10/24 12:01 metformin AdvReac Severe Abdominal Verified 09/10/24 12:01 Pain nitrofurantoin (From AdvReac Severe Other Verified 09/10/24 12:01 Macrobid) Exam Data for Last 24 hours Vital signs and Labs for Last 24 Hours: Temp Pulse Resp BP Pulse Ox O2 Del Method 97 F L 69 16 158/67 H 99 Room Air 09/10/24 12:01 09/10/24 12:01 09/10/24 12:01 09/10/24 12:01 09/10/24 12:01 09/10/24 12:01 Laboratory Results - last 24 hr 09/10/24 12:17: POC Glucose 81 I & O for Last 24 hours: Intake & Output 09/07/24 09/08/24 09/09/24 09/10/24 23:59 23:59 23:59 23:59 Weight 190 lb *Routine HEENT Exam Head: Present normocephalic Eye: Present EOMI and PERRL ENT: Present mucous membranes moist *Routine Neck Exam Neck: Present supple *Routine Respiratory Exam Respiratory: Present CTA bilaterally *Routine Cardiovascular Exam Cardiovascular: Present RRR *Routine Abdominal Exam Abdominal: Present soft and normoactive bowel sounds; Absent tenderness *Routine Rectal Exam Rectal:: deferred *Routine Genitalia Exam Genitalia:: deferred *Routine Extremities Exam Extremities: Absent cyanosis, clubbing or edema *Routine Skin Exam Skin: Present warm; Absent rash *Routine Neurological Exam Neurological: Present alert and oriented X3 Assessment and Plan *Assessment and plan (1) Dysphagia: Status: Acute Category: Medical Code(s): R13.10 - Dysphagia, unspecified (2) Globus sensation: Status: Acute Category: Medical Code(s): R09.A2 - Foreign body sensation, throat (3) GERD (gastroesophageal reflux disease): Status: Acute Category: Medical Code(s): K21.9 - Gastro-esophageal reflux disease without esophagitis (4) Iron deficiency anemia: Status: Acute Category: Medical Code(s): D50.9 - Iron deficiency anemia, unspecified Plan A/P: 1. Dysphagia/globus sensation with chronic GERD and iron deficiency is the preprocedural diagnosis. The patient will be anesthetized/sedated using MAC sedation. The patient has been seen and examined. Cardiac and lung assessment prior to the examination is stable. Proceed with planned diagnostic EGD.
--- NOTE | 2024-09-10 12:56 | HMH.PROCNOTE ---
[facility] Procedure Note Date: 09/10/24 Procedure Note:: Upper Endoscopy Procedure Report: Esophagogastroduodenoscopy with cold biopsies and TTS balloon dilation Endoscopost: Georges Claire II, MD Referring Physician: URIEL Munson Date of Procedure: September 10, 2024 Equipment: Olympus GIF 190 standard upper endoscope Sedation: MAC sedation Indications: Mrs. Wright is a 75-year-old female who is here for diagnostic EGD secondary to some dyspepsia, GERD, dysphagia and globus sensation. The patient does have a history of pancreatic IPMN and an atrophic pancreas. She has had endoscopic ultrasound at the [facility] with numerous cystic IPMN's that measure largest 11 mm and primarily sidebranch IPMN. The patient does report some left upper quadrant discomfort. She has had bloating, belching, nausea and early satiety. She also has some chronic constipation. She does have a history of iron deficiency anemia and has been on iron supplementation. She also stopped using NSAIDs but her medicine list does include meloxicam as needed. She has been on omeprazole and famotidine. She is not on Creon. Procedure: Prior to the procedure, a history and physical exam was performed, and patient's medications and allergies were reviewed. The risks, benefits and alternatives of the sedation and procedure were discussed with the patient. All questions were answered and informed consent was obtained. The patient was brought to the procedure room. Patient identification and proposed procedure were verified by the physician and the nurse. The patient was placed in a left lateral decubitus position and the scope was passed under direct vision. Throughout the procedure, the patient's blood pressure, pulse, and oxygen saturations were monitored continuously. The upper GI endoscopy was accomplished without difficulty. The patient tolerated the procedure well. Findings: The scope was passed directly into the upper esophagus and advanced to the fourth portion of duodenum and proximal jejunum. A cold biopsy was taken from the proximal jejunum for the disaccharidase assay. The proximal jejunum, post bulbar duodenum, ampulla and duodenal bulb were normal with normal mucosa and conniventes. The scope was withdrawn through a normal duodenal bulb and pylorus into the stomach. There was minimal linear reactive gastropathy of the antrum with some proximal gastric atrophy. Cold biopsies were taken from the antrum and fundus. Upon retroflexion there was no hiatal hernia. The scope was then withdrawn into the esophagus. There was no evidence of reflux esophagitis or Albrecht's. There were some tertiary contractions and evidence of mild to moderate esophageal dysmotility. There were no strictures, corrugation, rings, webs or inlet patch. The entire esophagus was dilated to 60 [place]/20 mm with a TTS hydrostatic balloon. There was some resistance at the cricopharyngeus. The remainder of the esophageal mucosa was normal. Impression: 1. Nonerosive GERD with mild to moderate esophageal dysmotility and cricopharyngeal spasm 2. Very mild antral linear reactive gastropathy and mild gastric atrophy Plan: I will follow-up the biopsies and discuss the findings with the patient and family.
[2024-09-10 13:09] VITALS: BP 143/63; PULSE 66; RESP 18; TEMP 36.2; O2SAT 94
[2024-09-10 13:19] VITALS: BP 126/87; PULSE 66; RESP 18; O2SAT 97
[2024-09-10 13:29] VITALS: BP 137/66; PULSE 63; RESP 18; O2SAT 95
[2024-09-10 13:39] VITALS: BP 140/67; PULSE 60; RESP 18; TEMP 36.2; O2SAT 97
[2024-09-14 13:14] LABS: Interpretation Notes (.); Lactase 17.9 (>/= 14.0); Maltase 214.36 (>/= 110.0); Palatinase 11.33 (>/= 8.5); Reference Notes (.); Sucrase 38.06 (>/= 25.0)
== END | disposition home or self-care (01) ==
PROVIDERS: PCP Nurse Practitioner Family; Visit Provider Internal Medicine Gastroenterology
PROC: 0DJ08ZZ Inspection of Upper Intestinal Tract, Via Natural or Artificial Opening Endoscopic (ICD-10-PCS; CPT 43239; principal; 2024-09-10 13:30)
DX: K21.9 Gastro-esophageal reflux disease without esophagitis (principal); K22.4 Dyskinesia of esophagus; K31.89 Other diseases of stomach and duodenum; K29.40 Chronic atrophic gastritis without bleeding; D50.9 Iron deficiency anemia, unspecified; E11.22 Type 2 diabetes mellitus with diabetic chronic kidney disease; N18.9 Chronic kidney disease, unspecified; E11.65 Type 2 diabetes mellitus with hyperglycemia; Z79.4 Long term (current) use of insulin; Z79.84 Long term (current) use of oral hypoglycemic drugs; Z88.2 Allergy status to sulfonamides; Z88.1 Allergy status to other antibiotic agents; Z88.5 Allergy status to narcotic agent; Z88.8 Allergy status to other drugs, medicaments and biological substances
CPT/HCPCS: 43239; 43249; 82657; 82962; 88305; C1726; J2003; J2704; J7120

== ENCOUNTER 2024-11-07 11:59 | Outpatient (CLI) | payer MEDICARE, SELFPAY ==
[2024-11-07 13:46] LABS: Microscopic, Urine URINE MICROSCOPIC (MICROSCOPIC)
[2024-11-07 14:22] LABS: Hematocrit 40.4 % (37.0-47.0); Hemoglobin 13.1 g/dL (12.2-16.2); Immature Granulocytes % 0.4 %; Mean Corpuscular HGB Conc 32.4 g/dL (31.8-35.4); Mean Corpuscular Hemoglobin 30.4 pg (27.0-31.2); Mean Corpuscular Volume 93.7 fl (81-99); Nucleated Red Blood Cells % 0 %; Platelet Count 290 K/mm3 (142-424); Red Blood Count 4.31 M/mm3 (4.20-5.40); Red Cell Distribution Width-SD 47.8 fL; White Blood Count 4.9 K/mm3 (4.8-10.8)
[2024-11-07 14:23] LABS: Bilirubin,Urine Negative (Negative); Color,Urine YELLOW (Yellow); Glucose,Urine (UA) 3+ (Negative); Ketones,Urine Negative (Negative); Leukocyte Esterase,Urine TRACE (Negative); PH,Urine 5.5 (5.0-8.5); Protein,Urine Negative (Negative); Specific Gravity, Urine 1.015 (1.005-1.030); Urobilinogen,Urine 0.2 EU/dl (0.2)
[2024-11-07 14:35] LABS: Bacteria,Urine 3+ /lpf
[2024-11-07 14:43] LABS: Hemoglobin A1C 8.0 % (4.0-6.0)
[2024-11-07 14:56] LABS: Alanine Aminotransferase 18 U/L (12-78); Albumin Level 4.3 g/dl (3.5-5.0); Albumin/Globulin Ratio 1.6 (1.1-1.8); Alkaline Phosphatase 70 U/L (38-126); Anion Gap 10.0 mEq/L (5-15); Aspartate Amino Transferase 29 U/L (14-36); Bilirubin,Total 0.6 mg/dl (0.2-1.3); Blood Urea Nitrogen 13 mg/dl (7-17); Calcium 9.7 mg/dl (8.4-10.2); Carbon Dioxide 29 mmol/L (22.0-30.0); Chloride 107 mmol/L (98-107); Cholesterol 182 mg/dl (140-200); Creatinine,Serum 1.00 mg/dl (0.52-1.04); Estimated Glomerular Filt Rate 54 ml/min (>60); GFR (African American) 65 ML/MIN (>60); Globulin 2.7 g/dL (1.3-3.2); Glucose 116 mg/dl (74-100); HDL Cholesterol 45 mg/dl (40-60); Potassium 5.0 mmoL/L (3.5-5.1); Sodium 141 mmol/L (136-145); Total Protein,Serum 7.0 g/dl (6.3-8.2); Triglycerides 160 mg/dl (30-150)
--- OUTSIDE RECORDS SUMMARY | 2024-11-08 10:24 | XMS_ITS | Clinical Summary ---
Author Organization [facility] Address [address] [place] [address] Care Team Providers Care Internal Communications Intern Name Role Phone Abraham Larsen MD Primary Care Provider + [phone] Allergies Active Allergy Reactions Criticality Noted Date Comments Codeine Swelling 10/08/2017 Swelling in head Medications glipiZIDE (GLUCOTROL XL) 5 MG ER tablet Take 5 mg by mouth Daily. Active insulin NPH-insulin regular (humuLIN 70/30,novoLIN 70/30) (70-30) 100 UNIT/ML injection Inject 50 Units under the skin into the appropriate area as directed 2 (Two) Times a Day With Meals. 0 8 Active atorvastatin (LIPITOR) 80 MG tablet Take 1 tablet by mouth Every Night. 30 tablet 8 Active vitamin C (ASCORBIC ACID) 250 MG tablet Take 250 mg by mouth Daily. Active Cholecalciferol (Vitamin D) 50 MCG (2000 UT) tablet Take 2,000 Units by mouth Daily. Active Zinc Sulfate (ZINC 15 PO) Take by mouth. Ac tive traMADol (ULTRAM) 50 MG tablet Take 50 mg by mouth Every 6 (Six) Hours As Needed. Active fluticasone (FLONASE) 50 MCG/ACT nasal spray 2 sprays into the nostril(s) as directed by provider Daily. Active famotidine (PEPCID) 20 MG tabletIndicatio ns:Epigastric pain Take 1 tablet by mouth 2 (Two) Times a Day. 60 tablet 5 2 Active Active Problems Problem Noted Date Diagnosed Date Awareness under anesthesia 04/24/2021 TIA (transient ischemic attack) 10/08/2017 Type 2 diabetes mellitus 10/08/2017 Hyperlipidemia 10/08/2017 PAD (peripheral artery disease) 10/08/2017 GERD (gastroesophageal reflux disease) 8 Immunizations Immunization Administration Dates Next Due Fluzone High-Dose 65+YRS 10/10/2018,11/10/2017,0 11/02/2016 Hepatitis A 10/10/2018,01/30/2018 Pneumococcal Conjugate 13-Valent (PCV13) 020 Family History Medical History Relation Name Comments Aortic aneurysm Brother Heart disease Brother Hypertension Brother Diabetes Father Heart disease Father Diabetes Mother Heart disease Mother Hypertension Sister Stroke Sister Stroke Son Relation Name Status Comments Brother Alive Daughter Alive Father Mother Sister Alive Son Alive Social History Tobacco Use Types Packs/Day Years Used Date Smoking Tobacco: Never Smokeless Tobacco: Never Alcohol Use Standard Drinks/Week Comments No 0 (1 standard drink = 0.6 oz pur e alcohol) Abuse Screen Answer Date Recorded Unsafe at Home or Work/School Not on file Feels Threatened by Someone? Not on file 01/2023 Does Anyone Keep You from Co ntacting Others or Doint Things Outside the Home? Not on file 12/02/2022 Physical Sign of Abuse Present Not on file 1 Housing Stability Answer Date Recorded Current Living Arrangements Not on file 11/21 Potentially Unsafe Housing Conditions Not on jc e 12/02/2022 Family and Community Support Answer Tato e Recorded Help with Day-to-Day Activities Not on file 12/02/2022 Lonely or Isolated Not on file 12/02/2022 Employment Answer Date Recorded Do you want help finding or keeping work or a becca b? Not on file 12/02/2022 Disabilities Answer Date Recorded Concentrating, Remembering, or Making Decisions Difficulty Not on file 12/02/2022 Doing Errands Independently Difficulty Not on fi le 12/02/2022 Education Answer Date Recorded Help with school or training? Not on file Preferred Language Not on file 12/02/2022 Comments No Sex and Gender Information Value Date Recorded Sex Assigned at Not on file Legal Sex Female 5:01 PM EDT Gender Identity Not on file Sexual Orientation Not on file Last Filed Vital Signs Vital Sign Reading Time Taken Comments Blood Pressure 122/74 08/04/2021 10:52 AM EDT Pulse 65 08/04/2021 10:52 AM EDT Temperature 35.9 C (96.7 F) 08/04/2021 10:52 AM EDT Respiratory Rate 16 10/09/2017 4:10 PM EDT Oxygen Saturation 97% 08/04/2021 10:52 AM EDT Inhaled Oxygen Concentration - - Weight 78 kg (172 lb) 08/04/2021 10:52 AM EDT Height 170.2 cm (5' 7 ) 08/04/2021 10:52 AM EDT Body Mass Index 26.94 08/04/2021 10:52 AM EDT Plan of Treatment Health Maintenance Due Date Last Done Comments DXA SCAN 03/10/1949 TDAP/TD VACCINES (1 - Tdap) 03/10/1966 COLOGUARD 03/10/1992 COLON CANCER SCREENING 5 YEA R SIGMOIDOSCOPY 03/10/1992 COLONOSCOPY 03/10/1992 COLORECTAL CANCER SCREENING 03/10/1992 CT COLONOGRAPHY 03/10/1992 FECAL OCCULT BLOOD TEST 03/10/1992 FIT Testing (1 year) 03/10/1992 ZOSTER VACCINE (1 of 2) 03/10/1997 ANNUAL PHYSICAL 10/10/2017 HEPATITIS C SCREENING 10/10/2017 LIPID PANEL 10/09/2018 10/09/2017 Pneumococcal Vaccine 50+ (2 of 2 - PPSV23) 09/18/2020 09/19/2019 RSV Vaccine - Adults (1 - 1- dose 75+ series) 03/10/2022 COVID-19 Vaccine (1 - 2023-2 5 season) 2024 INFLUENZA VACCINE 11/21/2024 10/10/2018, , 11/02/2016 HEMOGLOBIN A1C Discontinued 10/09/2017 Procedures Procedure Name Priority Date/Time Associated Diagnosis Comments HEMOGLOBIN A1C Routine 10/09/2017 5:43 AM EDT LIPID PANEL Routine 10/09/2017 5:43 AM EDT from Last 3 Months or Most Recently Relevant to Health Maintenance Results * (ABNORMAL) Hemoglobin A1c (10/09/2017 5:43 AM EDT) Hemoglobin A1C 10.50(H) 4.80 - 5.60 % 10/09/2017 7:56 AM EDT [facility] Blood 10/09/2017 5:43 AM EDT 10/09/2017 6:06 AM EDT [facility] - 10/09/2017 7:56 AM EDT The [place] [employer] recommends maintenance of Hemoglobin A1C at 7.0% or lower. Goals for Hemoglobin A1C reduction may need to be modified if hypoglycemia is a problem. Abigail Chaves APRN LAB BLOOD ORDERABLES Final Result [facility]
[address] [place] [address], * (ABNORMAL) Lipid Panel (10/09/2017 5:43 AM EDT) Total Cholesterol 172 0 - 200 mg/dL 10/09/2017 6:41 AM EDT [facility] Triglycerides 282(H) 0 - 150 mg/dL 10/09/2017 6:41 AM EDT [facility] HDL Cholesterol 38(L) 40 - 60 mg/dL 10/09/2017 6:41 AM EDT [facility] LDL Cholesterol 107 0 - 130 mg/dL 10/09/2017 6:41 AM EDT [facility] Blood 10/09/2017 5:43 AM EDT 10/09/2017 6:06 AM EDT [facility] - 10/09/2017 6:41 AM EDT Cholesterol Reference Ranges: Desirable < 200 mg/dL Borderline 200-239 mg/dL High Risk > 239 mg/dL Triglyceride Reference Ranges: Normal < 150 mg/dL Borderline 150-199 mg/dL High 200-499 mg/dL Very High > 499 mg/dL HDL Reference Ranges: Low < 40 mg/dL High > 59 mg/dL LDL Reference Ranges: Optimal < 100 mg/dL Near Optimal 100-129 mg/dL Borderline 130-159 mg/dL High 160-189 mg/dL Very High > 189 mg/dL Abigail Chaves APRN LAB BLOOD ORDERABLES Final Result [facility]
[address] [place] [phone], from Last 3 Months or Most Recently Relevant to Health Maintenance [facility] Advance Directives * CPR (Attempt to Resuscitate) (Latest Code Status on File) Date Activated Date Inactivated Comments 10/08/2017 8:50 PM 10/09/2017 9:01 PM Question Answer Comments Code Status (Patient has no pulse and is not breathing): CPR (Attempt to Resuscitate) Medical Interventions (Patie nt has pulse or is breathing): Full Level Of Support Discussed With: Patient Care Teams Internal Communications Intern Relationship Specialty Start Date End Date Abraham Larsen MD [address] [facility] [address] [place] [address] PCP - General Family Medicine 10/08/17
--- OUTSIDE RECORDS SUMMARY | 2024-11-08 10:24 | XMS_ITS | Clinical Summary ---
Author Organization [facility] Address [address] [place] [address] Care Team Providers Care Printer Helper Name Role Phone Abraham Larsen MD Primary Care Provider + [phone] Allergies Active Allergy Reactions Criticality Noted Date [...] 20 mg by mouth twice a day. Active fluticasone (Flonase) 50 MCG/ACT nasal spray [...] disease 04/24/2021 TIA (transient ischemic attack) 04/24/2021 Encounters Date Type Department Care Team Description 08/22/2024 Orders Only [facility] [address] [place] [phone] Janice Sarabia Stage 3 chronic kidney disease, unspecified whether stage 3a or 3b CKD (CMS/HCC) (Primary Dx); Vitamin D insufficiency from Last 3 Months Social History Tobacco Use Types Packs/Day Years [...] Description 01/04/2025 10:00 AM EST Office Visit [facility] [address] [place] [phone] Heydi Harris F, EMERGENCY ROOM CLERK [address] [address] Health Maintenance Due Date Last Done Comments [facility]-Bone Density Scan 03/10/1949 [facility]-Depression Screening 03/10/1949 [facility]-Hepatitis C Screening 03/10/1949 [facility]-Medicare Annual Wellness (AWV) 03/10/1949 [facility]-Infant/Child/Adol SDOH Screenings 03/11/1949 [id number] Vaccine (#1) 03/10/1952 Diabetes: Dental Exam 03/10/1957 [facility]- SDOH Screenings 03/10/1965 [facility]-Adult SDOH Screenings 03/10/1965 [facility]-Diabetes: Hemoglobin A1C 04/08/2018 10/09/2017 [facility]-Pneumococcal Vaccine: 50+ Years (2 of 2 - PPSV23, PCV20, or PCV21) 11/14/2019 09/19/2019 [facility]-DTaP,Tdap,and Td Vaccines (1 - Tdap) 12/29/2021 12/28/2021 [facility]-RSV Vaccine: 60+ Years or (1 - 1-dose 75+ series) 03/10/2022 [facility]-Influenza Vaccine (#1) 10/22/202410/10, 11/10/2017, 11/02/2016 [facility]-Hepatitis A Vaccines Aged Out 019, 01/30/2018 [...] patient's age to complete this topic Insurance [facility] MEDICARE [facility] MEDICARE Care Teams Printer Helper Relationship Specialty Start Date End Date Abraham Larsen MD [address] [address] PCP - General 04/24/21
== END 2024-11-07 23:59 ==
LOC: LAB.DROPOF 11-08 10:21
PROVIDERS: PCP Nurse Practitioner Family; Visit Provider Nurse Practitioner Family
DX: I10 Essential (primary) hypertension (principal); R06.00 Dyspnea, unspecified; R53.83 Other fatigue; E11.9 Type 2 diabetes mellitus without complications; R41.3 Other amnesia
CPT/HCPCS: 80053; 80061; 81001; 82043; 82570; 83036; 84156; 85025; 87086; 87088

== ENCOUNTER 2024-12-27 07:39 | Outpatient (CLI) | payer MEDICARE, SELFPAY ==
--- NOTE | 2024-12-27 | CA_ITS ---
APPROVED REPORT Exam: Pharmacologic Technologist: Dayana Charles Ht: 5 ft 4 in Wt: 179 lbs BSA: 1.87 m2 HR: 79 bpm BP: 168/68 mmHg Indications: Shortness of breath, hypertension, abnormal ECG. Medical History Medications: Lisinopril Cardiac Risk Factors: HTN, Hyperlipidemia, Diabetes (non-insulin) Stress Test Details HR Resting HR: 79 bpm Max Heart Rate (APMHR): 143.481740 bpm Target HR (85% APMHR): 121.618876 bpm Recovery HR: 78 bpm BP Resting BP: 168.0/68.0 mmHg Recovery BP: 149.0/77.0 mmHg ECG Stress ECG Conclusion During lexiscan pt experinced no symptoms. No arrhythmias noted. Less than 0.5mm upsloping ST segment changes. Nondiagnostic ECG/lexiscan. Electronically signed by : Natasha Gonzalez MD 12/31/2024 12:39:38
--- OUTSIDE RECORDS SUMMARY | 2024-12-27 07:41 | XMS_ITS | Clinical Summary ---
Author Organization [facility] Address [address] [place] [address] Care Team Providers Care Chauffeur Name Role Phone Abraham Larsen MD Primary Care Provider + [phone] Allergies Active Allergy Reactions Criticality Noted Date [...] Pneumococcal Vaccine 50+ (2 of 2 - PCV20 or PCV21) 09/18/2020 09/19/2019 RSV Vaccine - Adults (1 - 1- dose 75+ series) 03/10/2022 INFLUENZA VACCINE 09/21/2024 10/10/2018, , 11/02/2016 COVID-19 Vaccine (1 - 2023-2 5 season) 2024 HEMOGLOBIN A1C Discontinued 10/09/2017 Procedures Procedure Name Priority Date/Time Associated Diagnosis Comments HEMOGLOBIN A1C Routine 10/09/2017 5:43 AM EDT LIPID PANEL Routine 10/09/2017 5:43 AM EDT from Last 3 Months or Most Recently Relevant to Health Maintenance Results * (ABNORMAL) Hemoglobin A1c (10/09/2017 5:43 AM EDT) Hemoglobin A1C 10.50(H) 4.80 - 5.60 % 10/09/2017 7:56 AM EDT [facility] Blood 10/09/2017 5:43 AM EDT 10/09/2017 6:06 AM EDT [facility] - 10/09/2017 7:56 AM EDT The [place] [employer] recommends maintenance of Hemoglobin A1C at 7.0% or lower. Goals for Hemoglobin A1C reduction may need to be modified if hypoglycemia is a problem. Abiagil Chaves APRN LAB BLOOD ORDERABLES Final Result [facility]
[address] [place] [address], * (ABNORMAL) Lipid Panel (10/09/2017 5:43 AM EDT) Total Cholesterol 172 0 - 200 mg/dL 10/09/2017 6:41 AM EDT [facility] Triglycerides 282(H) 0 - 150 mg/dL 10/09/2017 6:41 AM EDT [facility] HDL Cholesterol 38(L) 40 - 60 mg/dL 10/09/2017 6:41 AM EDT [facility] LDL Cholesterol 107 0 - 130 mg/dL 10/09/2017 6:41 AM EDT [facility] Blood 10/09/2017 5:43 AM EDT 10/09/2017 6:06 AM EDT [facility] - 10/09/2017 6:41 AM EDT Cholesterol [...] mg/dL Very High > 189 mg/dL Abigail Marshal [employer] LAB BLOOD ORDERABLES Final Result [facility]
[address] [id number], from Last 3 Months or Most Recently Relevant to Health Maintenance [facility] Advance Directives * CPR (Attempt to Resuscitate) (Latest Code Status on File) Date Activated Date Inactivated Comments 10/08/2017 8:50 PM 10/09/2017 9:01 PM Question Answer Comments Code Status (Patient has no pulse and is not breathing): CPR (Attempt to Resuscitate) Medical Interventions (Patie nt has pulse or is breathing): Full Level Of Support Discussed With: Patient Care Teams Chauffeur Relationship Specialty Start Date End Date Abraham Larsen MD [address] [facility] [address] [place] [address] PCP - General Family Medicine 10/08/17
--- OUTSIDE RECORDS SUMMARY | 2024-12-27 07:41 | XMS_ITS | Data Portability ---
Author Organization [facility] ABRAM Montero ALLEGHANY CLOSED Address [address] [facility] [address] [place] [address] Assessment No assessment recorded. Plan of Treatment Reminders Order Date Submit Date Provider Last Modified By Organization Details Last Modified Time Details Appointments None recorded. Lab None recorded. Referral physical therapist referral 2018 019 [email or web address] Not available 9 10:16:50 Procedures None recorded. Surgeries None recorded. Imaging XR, hip, unilateral , 2 or 3 view 2018 019 [facility] [place] [facility], [address] [place] [address], [phone], 9 10:32:23 Medication Orders None recorded. Patient TargetsNo targets recorded. Patient InstructionsNo instructions recorded. Reason for Referral Physical Therapist Referral for Pain of left hip joint Referring Physician: Larry Easley, Rheumatology, Encounter Date: 11/08/2018 Results Created Date Observation Date Name Description Value Unit Range Abnormal Flag Note LastModifiedBy Organization Detail LastModifiedTime 11/09/19 19 11/08/2018 XR, hip, unila teral , 2 or [address] [address] Patien t Name: KEREN schilling : [phone] [address] t Orderi ng Provid er: ALYSA EASLEY EXAM DATE: 2018 EXAM: XR LT HIP UNILAT ERAL, 2 OR 3 VWS COMPAR ROSANNE: None. HISTOR Y: Left hip pain FINDIN GS: Good preser vation of the weight bearin g surfac es of both hips. Mild bilate ral hip joint degene rative spurri ng is presen t. No fractu re or disloc ation. No suspic ious intrao sseous lesion IMPRES LEONEL: Mild bilate ral hip DJD Interp reted By: Collin Mccullough MD Electr onical ly Signed By: Collin Mccullough MD on 019 10:27 AM [email or web address] [facility] [address] [place], [phone], 11/08/2018 12:43:47 Result Notes Documentation Provider Name and Address Organization Details Recorded Time Xr, Hip, Unilateral, 2 Or 3 View : [address] [place] [address] Patient Name: KEREN MAYNARD Patient : 03/10/1949 Patient Ordering Provider: ALYSA EASLEY EXAM DATE: 11/08/2018 EXAM: XR LT HIP UNILATERAL, 2 OR 3 VWS COMPARISON: None. HISTORY: Left hip pain FINDINGS: Good preservation of the weightbearing surfaces of both hips. Mild bilateral hip joint degenerative spurring is present. No fracture or dislocation. No suspicious intraosseous lesion IMPRESSION: Mild bilateral hip DJD Interpreted By: Collin Mccullough MD Y ALYSA EASLEY MD [address] [place] [address], [phone], [facility] 11/08/2018 12:43:47 Problems No Known Problems Medical Equipment None Reported. Allergies Allergen ID Allergen Name Allergen Category Reaction Reaction Severity Criticality Documentation Date Start Date Code Code System Note Provider Name and Address Organization Details Recorded Time [id number] codeine medicatio n Not available Not available Not available 11/08/2018 2670 RxNorm Cathy green [facility] 9 09:22:37 Medications Name Sig Start Date [...] ailable Not Available Vitals Date Recorded Body height Body temperature Provider N christiano and Address Organization Details Last Updated DateTime 08/01/2019 170.18 cm 97 [degF] LARRY EASLEY MD [address] [place], [address] 08/01/2019 10:31:40 Date Recorded Body weight Body mass index (BMI) Body height Heart rate Respiratory rate Systolic And Diastolic Provider Name and Address Organization Details Last Updated DateTime 9 10327.3 3 g 30.2 kg/m2 170.18 cm 61 /min 18 /min 160/84 mm[Hg] Cathy Castaneda [facility] 9 09:22:14 Social History Question Answer Notes LastModified by [employer] Details LastModified Time Tobacco Smoking Status Never Smoker Cathy Castaneda [facility] 11/08/2018 09:25:05 How Much Tobacco Do You Chew? None [email or web address] Information not available 11/08/2018 What Was The Date Of Your Most Recent Tobacco Screening? 11/08/2018 [email or web address] Information not available 11/08/2018 How Much Tobacco Do You Smoke? No [email or web address] Information not available 11/08/2018 How Many Years Have You Smoked Tobacco? 0 [email or web address] Information not available 11/08/2018 Sex: Unknown Functional Status Question Answer Note LastModified by [employer] Details LastModified Time Do you or have you ever used smokeless tobacco? Never used smokeless tobacco [email or web address] Information not available 11/08/2018 Do you or have you ever used e-cigarettes or vape? Never used electronic cigarettes Information not available 11/08/2018 Mental Status None recorded. Family History Nothing [...] Diagnosis SNOMED-CT Code Diagnosis ICD10 Code Diagnosis IMO Codes Diagnosis Note [id number] LARRY EASLEY MD [facility] [address] [place] [address] 11/08/2018 08:46:45 11/08/2018 10:17:13 Pain of left hip joint [id number] 37388 M25.552 69-year-ol d female with clinical evidence [...] months. No follow-up needed at this point. [id number] LARRY EASLEY MD RHEUMATOL OGPaulo [facility] [address] [place] [address] 08/01/2019 08:07:10 08/01/2019 10:42:43 Chronic low back pain [id number] M54.5 Ongoing left L5-S1 radicular symptoms. Followed [...] Recorded Advance Directives Directive None Recorded Payers Insurance Date Sequence Insurance Name Policy Number Policy Sage Covered Member ID Sage Member ID Guarantor Name 09/04/2019 2 [employer] (MEDICARE SUPPLEMENT) PLAN N Keren Dennyjulespaulo [id number] Keren Dennybridgett 09/04/2019 1 [place] Keren Dennyjulespaulo [id number] Keren Dennyjulespaulo Notes Date Note Type Note Provider Name and Address Organization Details Recorded Time 11/08/2018 text/html ROS as noted in the HPI seen as a new patient. she has [...] psoriasis, inflammatory bowel disease, iritis or uveitis. LARRY EASLEY MD [facility] [place], [address], [place] [facility] 11/08/2018 11:07:54 08/01/2019 text/html ROS as noted in the HPI The patient has requested and consented to a tele-leticia appointment today. Due to the current state of emergency it is appropriate to address patient s medical need via a telehealth appointment. [...] but failed to tolerate. LARRY EASLEY MD [address] [place] [address], [phone], [facility] 08/01/2019 10:35:30 OBGyn Episode No OBEpisode recorded.
--- OUTSIDE RECORDS SUMMARY | 2024-12-27 07:41 | XMS_ITS | Clinical Summary ---
Author Organization [facility] Address [address] [place] [address] Care Team Providers Care Hospital Admitting Clerk Name Role Phone Abraham Larsen MD Primary Care Provider + [phone] Allergies Active Allergy Reactions Criticality Noted Date [...] Description 01/04/2025 10:00 AM EST Office Visit [facility] [address] [place] [address] Heydi Harris, MICA MACHINE OPERATOR [address] [address] Health Maintenance Due Date Last Done Comments [facility]-Bone Density Scan 03/10/1949 [facility]-Depression Screening 03/10/1949 [facility]-Hepatitis C Screening 03/10/1949 [facility]-Medicare Annual Wellness (AWV) 03/10/1949 [facility]-Infant/Child/Adol SDOH Screenings 03/11/1949 [id number] Vaccine (#1) 03/10/1954 Diabetes: Dental Exam 03/10/1959 [...] patient's age to complete this topic Insurance [employer] MEDICARE Care Teams Hospital Admitting Clerk Relationship Specialty Start Date End Date Abraham Larsen MD [address] [facility] [address] [place] [address] PCP - General 04/24/21
--- NOTE | 2024-12-27 08:00 | NM_ITS ---
APPROVED REPORT Exam: Nuclear Stress Test Indication: soa..fatigue Patient Location: Outpatient Stress Tech: Dayana Charles CANDACE Tech:Izabel Cho KAVEHFarhat RT(R)(N) Ht: 5 ft 7 in Wt: 180 lbs Bra Size: 40c HR: 56 bpm BP: 168/68 mmHg BSA: 1.93 m2 TID: 1.00 BMI: 28.1 History: Dyspnea, fatigue Procedure: Patient received 0.4 mg of intravenous Lexiscan, resting heart rate 56 bpm, resting blood pressure 168/68 mmHg, with Lexiscan maximum heart rate achieved was 73 bpm which is 85 % of the maximum predicted heart rate and blood pressure was 138/56 mmHg. With Lexiscan, patient denied any complaint of chest pain. Cardiac Stress and Resting SPECT Images: Cardiac Stress and Resting SPECT images were obtained using technetium 99m Myoview 32.5 mCi stress and 10.96 mCi at rest. Resting and stress imaging in supine and prone positions demonstrate no evidence of fixed or reversible perfusion defects. Gated imaging demonstrates normal global LV systolic function. LVEF is calculated at 63%. Conclusion: No evidence of fixed or reversible perfusion defects. Gated imaging demonstrates normal global LV systolic function. LVEF is calculated at 63%. Electronically signed by : Natasha Gonzalez MD 12/31/2024 12:29:39
[2024-12-27 08:45] VITALS: BP 168/68; PULSE 79; RESP 14
[2024-12-27] MEDS: SODIUM CHLORIDE 0.9% 10ML SYR (RAD ONLY) 10 ML IV ×2 (09:20)
[2024-12-27] MEDS: ISOTOPE MYOVIEW (PER STUDY) 1 DOSE IV (09:20)
--- NOTE | 2024-12-27 10:30 | CA_ITS ---
APPROVED REPORT EXAM: Comprehensive 2D, Doppler, and color-flow Echocardiogram Public Health Technician: Susannah Guo RVT Ht: 5 ft 4 in Wt: 179lbs BSA: 1.87 BP: 137/61 mmHg Indications: SHORTNESS OF BREATH,ABNORMAL EKG 2D Dimensions IVSd 1.58 cm F: 0.6-1.0 LVEF (Visual) 61.30 % PWd 1.20 cm F: 0.6 - 1.0 LA Volume 32.30 mL LVDd 3.70 cm F: 3.9 - 5.3 LA Volume Index 17.27 mL/m2 (M/F) 16-34 LVDs 2.51 cm F: 2.2 - 3.5 EF AP4 54.50 % Left Atrium 4.04 cm F: 2.7 - 3.8 GL Strain -22.0 % RVID Base (AP4) 2.60 cm (M/F) 2.5-4.1 LVOT 2.33 cm (M/F) 1.5-2.5 M-Mode Dimensions LVDd 3.70 cm (3.5-5.7) Ao Diam 2.89 cm (2.0-3.7) LVDs 2.51 cm (3.5-5.7) IVSd 1.58 cm (0.6-1.1) PWd 1.20 cm (0.6-1.1) FS 32.20% TAPSE 2.06 (<1.7) LV Diastology E Decel Time 214 (160-240 msec) E/A Ratio 0.9 MED E' 5.6 (>= 7 cm/sec) E'/MED E' Ratio 13.79 (<= 14) LAT E' 9.2 (>= 10 cm/sec) E/LAT E' Ratio 8.39 (<= 14) Aortic Valve LVOT Max 98.0 (70-110 cm/s) TAMANNA Index 2.01 cm2/m2 LVOT VTI 25.44 cm AoV Peak Tyrone. 128.0 (50-130 cm/s) AO Peak GR. 4.80 mmHg AO Mean GR. 3.60 (<5 mmHg) AO VTI 28.9 (18-25 cm) TAMANNA (VTI) 3.76 (2.5-4.5 cm2) Mitral Valve MV E Max Tyrone. 77.0 (40-130 cm/s) MV A Velocity 83.0 (40-130 cm/s) E/A Ratio 0.93 MV Decel. Time 214 (160-240 ms) Tricuspid Valve TR P. Velocity 194.00 cm/s RAP Estimate 8.00 mmHg RVSP 23.10 mmHg Left Ventricle The left ventricle is normal size. Left ventricular systolic function is normal. The left ventricular ejection fraction is within the normal range. There is increased left ventricular wall thickness. There is normal LV segmental wall motion. The left ventricular diastolic function is normal. LVEF is 55% Right Ventricle The right ventricle is normal size. The right ventricular systolic function is normal. Atria Left atrium is mildly dilated. Right atrium is mildly dilated. There is no color Doppler evidence of interatrial shunt. Aortic Valve The aortic valve is mildly thickened. There is no hemodynamically significant aortic valvular stenosis. Trace aortic regurgitation is present. Mitral Valve The mitral valve is normal in structure. No evidence of mitral valve stenosis. Trace mitral regurgitation is present. Tricuspid Valve The tricuspid valve leaflets are thin and pliable. Mild tricuspid regurgitation. RVSP is 20-25 mmHg. Pulmonic Valve The pulmonary valve is grossly normal in structure. Trace pulmonic valve regurgitation is present. Great Vessels The aortic root is normal in size. IVC is normal in size and collapses >50% with inspiration. Pericardium There is no pericardial effusion. Other Information Study Quality: Fair Conclusion Normal biventricular systolic function. Mild biatrial dilation. Mild TR. Electronically signed by : Natasha Gonzalez MD 01/07/2025 22:13:54
== END 2024-12-27 23:59 | disposition home or self-care (01) ==
LOC: RAD 07:39
PROVIDERS: PCP Nurse Practitioner Family; Visit Provider Physician Assistant
DX: I07.1 Rheumatic tricuspid insufficiency (principal); I11.9 Hypertensive heart disease without heart failure; R94.31 Abnormal electrocardiogram [ECG] [EKG]; R42 Dizziness and giddiness
CPT/HCPCS: 78452; 93017; 93018; 93306; A9502; J2785

== ENCOUNTER 2025-02-06 12:20 | Outpatient (CLI) | payer MEDICARE, SELFPAY ==
--- OUTSIDE RECORDS SUMMARY | 2025-01-04 10:00 | XMS_ITS | Encounter Summary ---
Author Organization Healthcare Address [address] [place] [id number] Care Team Providers Care Drafter Castings Name Role Phone Abraham Larsen MD Primary Care Provider [phone] Reason for Referral * Consultation (Routine) - Authorized Specialty Diagnoses / Procedures Referred By Gino schilling Referred To Contact Diagnoses Stage 3a chronic kidney disease (CMS/HCC) Heydi Harris, PRECISION DEVICES INSPECTOR/TESTER [address] [facility] Hammad [address] [place] [phone] Phone: tel: fax: Referral ID Status Reason Start Date Expiration Date V isits Requested Visits Authorized [id number] Authorized 01/04/2025 07/06/2026 1 1 Reason for Visit * Reason Comments Consult Patient is a 75 year old female that presents to the clinic on this for a consult. Patient states she is having left shoulder pain and rates it a 5/10. * Consultation (Routine) - Closed Specialty Diagnoses / Procedures Referred By Gino schilling Referred To Contact Nephrology Diagnoses CKD (chronic kidney disease) Millie Edmond, PRECISION DEVICES INSPECTOR/TESTER [address] [place] [address] Phone: tel: fax: [facility] [employer] [facility] [facility] [address] [facility], [address] [place] [phone] Phone: tel: fax: Referral ID Status Reason Start Date Expiration Date V isits Requested Visits Authorized [id number] Closed Specialty Services Required 06/13/2024 12/13/2025 1 1 Encounter Details Date Type Department Care Team (Late st Contact Info) Description 01/04/2025 10:00 AM EST Office Visit [facility] [address] [place] [phone] Heydi Harris, PRECISION DEVICES INSPECTOR/TESTER [address] [phone] Stage 3a chronic kidney disease (CMS/HCC) (Primary Dx); Diabetes mellitus due to underlying condition with diabetic chronic kidney disease, unspecified CKD stage, unspecified whether mill beam fitter insulin use; Essential hypertension; Chronic kidney disease-mineral and bone disorder; Yeast infection Social History Tobacco Use Types Packs/Day Years Used Date Smoking Tobacco: Never Smokeless Tobacco: Never Tobacco Cessation:Counseling Given: Not Answered Alcohol Use Standard Drinks/Week Comments Never 0 (1 standard drink = 0.6 oz pur e alcohol) Comments No Sex and Gender Information Value Date Recorded Sex Assigned at Not on file Legal Sex Female 8:22 AM EST Gender Identity Not on file Sexual Orientation Not on file documented as of this encounter Last Filed Vital Signs Vital Sign Reading Time Taken Comments Blood Pressure 126/58 01/04/2025 9:50 AM EST Pulse 76 01/04/2025 9:50 AM EST Temperature - - Respiratory Rate 16 01/04/2025 9:50 AM EST Oxygen Saturation 97% 01/04/2025 9:50 AM EST Inhaled Oxygen Concentration - - Weight 79.4 kg (175 lb) 01/04/2025 9:50 AM EST Height 170.2 cm (5' 7 ) 01/04/2025 9:50 AM EST Body Mass Index 27.41 01/04/2025 9:50 AM EST documented in this encounter Miscellaneous Notes * Progress Notes - Heydi Harris, JESUSITA - 01/04/2025 10:00 AM EST Nephrology Outpatient Consult Note Reason for referral: CKD evaluation Referring Provider: Abraham Larsen MD HPI: Keren Astorga is a 75 y.o. female with PMH of HTN, DM, HLD, and GERD who presents as a new consult at the request of Abraham Larsen MD Patient with documented creatinine 1-1.2 for over a year. Known HTN and DM for several years. HTN controlled, DM not at goal A1c, last documented 8.6. + neuropathy. Chronic NSAID use with meloxicam for arthritis pain. No known family history of renal disease. Denies hematuria, dysuria, abd pain, SOA, CP. I have personally reviewed records from referring provider and other consultants. REVIEW OF SYSTEMS A complete 14-point review of systems was obtained and is negative except as reported in the HPI Past Medical History[1] Surgical History[2] Family History[3] Social History Tobacco Use Smoking status: Never Smokeless tobacco: Never Substance Use Topics Alcohol use: Never Medications Current Medications[4] Allergies[5] PHYSICAL EXAMINATION Visit Vitals BP 126/58 (BP Location: Right arm, Patient Position: Sitting, BP Cuff Size: Large adult) Pulse 76 Resp 16 Ht 1.702 m (5' 7 ) Wt 79.4 kg (175 lb) LMP (LMP Unknown) SpO2 97% BMI 27.41 kg/m?? OB Status Postmenopausal Smoking Status Never BSA 1.94 m?? GA: well developed, well nourished, conversant, NAD EYES: Anicteric sclera, no injection, no discharge HENT: Head is normocephalic and atraumatic. Mucous membranes are moist. NECK: Supple. No visible masses or thyromegaly RESP: Normal resp effort. Lungs clear to auscultation bilaterally. No wheezing, rhonchi or crackles CV: Heart RRR, no murmurs or rubs GI: Abdomen soft, non tender, and non distended. Positive bowel sounds. : No suprapubic tenderness, no CVA tenderness MSK/Ext: No edema. No joint swelling. No cyanosis or clubbing NEURO: Grossly intact. No focal deficits. Cooperative PSYCH: Appropriate mood and affect, AAO SKIN: Normal temperature. No rash or ulcers. No jaundice LAB AND IMAGING RESULTS I have independently reviewed and interpreted the test results and discussed with patient. Labs scanned in to media tab of [facility] from an outside facility. Labs completed on 11/07/24 ASSESSMENT/PLAN CKD 3a Baseline 1-1.2, currently stable at 1 egfr 54 DM HTN Chronic NSAID use Recurrent UTIs Yeast infection Patient notes recent recurrent UTIs. Notes she has been treated with multiple antibiotics recently.She now complaints of vaginal discharge and severe vaginal itiching. Discussed liklihood of yeast infection. Reviewed allergies, discussed use of diflucan. One tablet today, repeat in 3 days. From a renal perspective, her renal function is stable with a baseline of 1-1.2. Reviewed renal disease progression with DM comorbidity. Discussed need to keep A1c less than 7 and to avoid nephrotoxic agents. Encouraged patient to discontinue NSAID use including meloxicam. Will monitor UA and urine protein/creatinine prior to next appointment. Will also monitor pth and vitamin d RTC in 6months Heydi Harris APRN [1] Past Medical History: Diagnosis Date ARIANA (acute kidney injury) Awareness under anesthesia Diabetes mellitus GERD (gastroesophageal reflux disease) TIA (transient ischemic attack) [2] Past Surgical History: Procedure Laterality Date SECTION, CLASSIC TUBAL LIGATION [3] No family history on file. [4] Current Outpatient Medications Medication Sig Dispense Refill acetaminophen (Tylenol 8 Hour) 650 MG ER tablet every 8 (eight) hours. ascorbic acid (Vitamin C) 250 MG tablet Take 250 mg by mouth 1 (one) time each day. cholecalciferol (Vitamin D-3) 50 MCG (2000 UT) tablet Take 2,000 Units by mouth 1 (one) time each day. famotidine (Pepcid) 20 MG tablet Take 1 tablet by mouth daily. fenofibrate (Tricor) 145 MG tablet Take 1 tablet by mouth daily. fluticasone (Flonase) 50 MCG/ACT nasal spray Administer 2 sprays into affected nostril(s) 1 (one) time each day. linaGLIPtin (Tradjenta) 5 MG tablet Take 1 tablet by mouth daily. meloxicam (Mobic) 7.5 MG tablet Take 1 tablet by mouth daily. pioglitazone (Actos) 30 MG tablet Take 1 tablet by mouth daily. insulin glargine (Lantus) 100 UNIT/ML injection vial Inject 19 Units under the skin nightly. traMADol (Ultram) 50 MG tablet Take 50 mg by mouth. Zinc Sulfate 66 MG tablet Take by mouth. No current facility-administered medications for this visit. [5] Allergies Allergen Reactions Codeine Swelling Swelling in head Swelling in head Metformin Other - please document in the comment field Abdominal pain Nitrofurantoin Unknown - Patient states they do not know rxn details Statins Other - please document in the comment field Muscle pain documented in this encounter Plan of Treatment Upcoming Encounters Date Type Department Care Team (Late st Contact Info) Description 08/02/2025 10:40 AM EDT Office Visit [facility] [address] [place] [phone] Heydi Harris APRN [address] [phone] Scheduled Orders Name Type Priority Associated Diagnoses Orde r Schedule PTH Intact Total Lab Routine Stage 3a chronic kidney disease (CMS/HCC) Expected: 01/04/2025 (Approximate), Expires: 07/04/2026 Vitamin D 25 Hydroxy Lab Routine Stage 3a chronic kidney disease (CMS/HCC) Expected: 01/04/2025 (Approximate), Expires: 07/04/2026 Renal Function Panel, Plasma Lab Routine Stage 3a chronic kidney disease (CMS/HCC) Expected: 01/04/2025 (Approximate), Expires: 07/04/2026 CBC W/O Differential Lab Routine Stage 3a chronic kidney disease (CMS/HCC) Expected: 01/04/2025 (Approximate), Expires: 07/04/2026 Urinalysis with reflex microscopic (Culture NOT Included) Lab Routine Stage 3a chronic kidney disease (CMS/HCC) Expected: 01/04/2025 (Approximate), Expires: 07/04/2026 Creatinine, Random, Urine Lab Routine Stage 3a chronic kidney disease (CMS/HCC) Expected: 01/04/2025 (Approximate), Expires: 07/04/2026 Albumin-creatinine ratio, urine, random Lab Routine Stage 3a chronic kidney disease (CMS/HCC) Expected: 01/04/2025 (Approximate), Expires: 07/04/2026 Protein, Random, Urine with Creatinine Lab Routine Stage 3a chronic kidney disease (CMS/HCC) Expected: 01/04/2025 (Approximate), Expires: 07/04/2026 Scheduled Referrals Name Type Priority Associated Diagnoses Order Schedule Follow Up Nephrology Outpatient Referral Routine Stage 3a chronic kidney disease (CMS/HCC) Expected: 07/04/2025 (Approximate), Expires: 02/03/2026 documented as of this encounter Visit Diagnoses Diagnosis Stage 3a chronic kidney disease ([facility] Primary Diabetes mellitus due to underlying condition with diabetic chronic kidney disease, unspecified CKD stage, unspecified whether fpc insulin use Essential hypertension Unspecified essential hypertension Chronic kidney disease-mineral and bone disorder Yeast infection documented in this encounter Additional Health Concerns Assessment Noted Time A Body Mass Index follow-up plan has been documented for the patient 01/04/2025 10:43 AM EST documented as of this encounter Care Teams Drafter Castings Relationship Specialty Start Date End Date Abraham Larsen MD [address] [place] [address] PCP - General 04/24/21 documented as of this encounter
--- NOTE | 2025-02-06 12:23 | XR_ITS ---
FINAL REPORT CLINICAL HISTORY: chronic left shoulder pain COMPARISON: None FINDINGS: 3 views of the left shoulder were obtained. There is no fracture or dislocation. There is degenerative joint disease of both the glenohumeral and acromioclavicular joints. Soft tissues are unremarkable. IMPRESSION: No acute osseous abnormality of the left shoulder. Degenerative joint disease. Reviewed, Interpreted and Dictated by Malka Paez MD Transcribed by Emiliana Gonzalez Authenticated and [facility]
--- OUTSIDE RECORDS SUMMARY | 2025-02-06 13:20 | XMS_ITS | Encounter Summary ---
Author Organization Healthcare Address [address] [place] [address] Care Team Providers Care Manager Trainee Name Role Phone Abraham Larsen MD Primary Care Provider [phone] Encounter Details Date Type Department Care Team (Latest Contact Info) Description 01/04/2025 Travel Social History Tobacco Use Types Packs/Day Years [...] on file documented as of this encounter Plan of Treatment Upcoming Encounters Date Type Department Care Team (Late st Contact Info) Description 08/02/2025 10:40 AM EDT Office Visit [facility] [address] [facility] [address] [place] [phone] Heydi Harris, SEWER AND CUTTER FINGER BUFF MATERIAL [address] [phone] documented as of this encounter Visit Diagnoses Not on filedocumented in this encounter Additional Health Concerns Assessment Noted Time A Body Mass Index follow-up plan has been documented for the patient 01/04/2025 10:43 AM EST documented as of this encounter Care Teams Manager Trainee Relationship Specialty Start Date End Date Abraham Larsen MD [address] [facility] [address] [place] [address] PCP - General 04/24/21 documented as of this encounter
--- OUTSIDE RECORDS SUMMARY | 2025-02-06 13:20 | XMS_ITS | Clinical Summary ---
Author Organization [facility] Address [address] [place] [address] Care Team Providers Care Coater Operator Insulation Board Name Role Phone Abraham Larsen MD Primary Care Provider [phone] Allergies Active Allergy Reactions Criticality Noted Date Comments Codeine Swelling High 10/08/2017 Swelling in head Swelling in head Metformin Other - please docum ent in the comment field High 01/01/2025 Abdominal pain Nitrofurantoin Unknown - Patient st ates they do not know rxn details High 01/01/2025 Statins Other - please docum ent in the comment field High 01/01/2025 Muscle pain Medications acetaminophen (Tylenol 8 Hour) 650 MG ER tablet every 8 (eight) hours. Active ascorbic acid (Vitamin C) 250 MG tablet Take 250 mg by mouth 1 (one) time each day. Active cholecalciferol (Vitamin D-3) 50 MCG (2000 UT) tablet Take 2,000 Units by mouth 1 (one) time each day. Active famotidine (Pepcid) 20 MG tablet Take 1 tablet by mouth daily. 2 Active fluticasone (Flonase) 50 MCG/ACT nasal spray Administer 2 sprays into affected nostril(s) 1 (one) time each day. Active traMADol (Ultram) 50 MG tablet Take 50 mg by mouth. Active Zinc Sulfate 66 MG tablet Take by mouth. Activ e fenofibrate (Tricor) 145 MG tablet Take 1 tablet by mouth daily. Active insulin glargine (Lantus) 100 UNIT/ML injection vial Inject 19 Units under the skin nightly. Active linaGLIPtin (Tradjenta) 5 MG tablet Take 1 tablet by mouth daily. Active meloxicam (Mobic) 7.5 MG tablet Take 1 tablet by mouth daily. Active pioglitazone (Actos) 30 MG tablet Take 1 tablet by mouth daily. Active Jardiance 25 MG Take 1 tablet by mouth daily. Active lisinopril 10 MG tablet Take 1 tablet by mouth daily. Active insulin lispro (Admelog, HumaLOG) 100 UNIT/ML injection pen Inject 19 Units under the skin 3 times a day with meals. Complex directions Active metoclopramide (Reglan) 5 MG tablet Take 1 tablet by mouth 4 times a day. Active Creon 37330-749882 units capsule delayed-release particles capsule Take 1 capsule by mouth 3 times a day with meals. Active fluconazole (Diflucan) 100 MG tabletIndicatio ns:Yeast infection Take one tablet with onset of symptoms. Then take 2nd tablet 3 days later 4 tablet Active Active Problems Problem Noted Date Diagnosed Date Awareness under anesthesia 04/24/2021 Diabetes mellitus, type 2 04/24/2021 Gastroesophageal reflux disease 04/24/2021 TIA (transient ischemic attack) 04/24/2021 Encounters Date Type Department Care Team Description 01/04/2025 10:00 AM EST Office Visit [facility] [address] [place] [place] [phone] Heydi Harris APRN Stage 3a chronic kidney disease (CMS/HCC) (Primary Dx); Diabetes mellitus due to underlying condition with diabetic chronic kidney disease, unspecified CKD stage, unspecified whether superintendent terminal insulin use; Essential hypertension; Chronic kidney disease-mineral and bone disorder; Yeast infection 01/04/2025 Travel from Last 3 Months Immunizations Immunization Administration Dates Next Due Hep A, Adult 10/10/2018,01/30/2018 Influenza, High-dose, Split Virus, Trivalent, Injectable, preservative free 10/10/2018,11/10/2017,11/02/2016 Pneumococcal Conjugate PCV 13 09/19/2019 Td (adult) 12/28/2021 Zoster, Recombinant 03/14/2023,10/18/2022 Social History Tobacco Use Types Packs/Day Years [...] Pulse 76 01/04/2025 9:50 AM EST Temperature 36.6 C (97.8 F) 04/24/2021 10:04 AM EST Respiratory Rate 16 01/04/2025 9:50 AM EST Oxygen Saturation 97% 01/04/2025 9:50 AM EST Inhaled Oxygen Concentration - - Weight 79.4 kg (175 lb) 01/04/2025 9:50 AM EST Height 170.2 cm (5' 7 ) 01/04/2025 9:50 AM EST Body Mass Index 27.41 01/04/2025 9:50 AM EST Plan of Treatment Upcoming Encounters Date Type Department Care Team (Late st Contact Info) Description 08/02/2025 10:40 AM EDT Office Visit [facility] [address] [place] [phone] Heydi Harris, A P SUPERVISOR [address] [phone] Health Maintenance Due Date Last Done Comments [facility]-Bone Density Scan 03/10/1949 [facility]-Depression Screening 03/10/1947 [facility]-Hepatitis C Screening 03/10/1947 [facility]-Medicare Annual Wellness (AWV) 03/10/1949 [facility]-Infant/Child/Adol SDOH Screenings 03/11/1949 [id number] Vaccine (#1) 09/08/1947 Diabetes: Dental Exam 03/10/1957 [facility]- SDOH Screenings 03/10/1965 [facility]-Adult SDOH Screenings 03/10/1965 [facility]-Diabetes: Hemoglobin A1C 04/08/2018 10/09/2017 [facility]-Pneumococcal Vaccine: 50 + Years (2 of 2 - PPSV23, PCV20, or PCV21) 11/14/2019 09/19/2019 [facility]-DTaP,Tdap,and Td Vaccine s (1 - Tdap) 12/29/2021 12/28/2021 [facility]-RSV Vaccine: 60+ Years o r (1 - 1-dose 75+ series) 03/10/2022 [facility]-Influenza Vaccine (#1) 10/22/202410/10, 11/10/2017, 11/02/2016 [facility]-Hepatitis A Vaccines Aged Out 019, 01/30/2018 No longer eligible based on patient's age to complete this topic [facility]-Zoster Vaccines Completed 03/14/2023, 10/18/2022 [facility]-Obesity Intervention Completed 01/04/2025 HPV Vaccines (No Doses Required) Completed [facility]-HIB Vaccines Aged Out No longer e ligible based on patient's age to complete this topic [facility]-IPV Vaccines Aged Out No longer e ligible based on patient's age to complete this topic [facility]-Rotavirus Vaccines Aged Out No lo nger eligible based on patient's age to complete this topic Insurance [facility] MEDICARE Care Teams Coater Operator Insulation Board Relationship Specialty Start Date End Date Abraham Larsen MD [address] [facility] [address] [place] [phone] PCP - General 04/24/21
[2025-02-06 15:59] LABS: Alanine Aminotransferase 13 U/L (12-78); Albumin Level 4.3 g/dl (3.5-5.0); Albumin/Globulin Ratio 1.7 (1.1-1.8); Alkaline Phosphatase 72 U/L (38-126); Anion Gap 10.7 mEq/L (5-15); Aspartate Amino Transferase 24 U/L (14-36); Bilirubin,Total 0.5 mg/dl (0.2-1.3); Blood Urea Nitrogen 26 mg/dl (7-17); Calcium 9.6 mg/dl (8.4-10.2); Carbon Dioxide 28 mmol/L (22.0-30.0); Chloride 104 mmol/L (98-107); Cholesterol 170 mg/dl (140-200); Creatinine,Serum 1.40 mg/dl (0.52-1.04); Estimated Glomerular Filt Rate 36 ml/min (>60); GFR (African American) 44 ML/MIN (>60); Globulin 2.5 g/dL (1.3-3.2); Glucose 137 mg/dl (74-100); HDL Cholesterol 58 mg/dl (40-60); Potassium 4.7 mmoL/L (3.5-5.1); Sodium 138 mmol/L (136-145); Total Protein,Serum 6.8 g/dl (6.3-8.2); Triglycerides 133 mg/dl (30-150)
[2025-02-06 18:57] LABS: Hemoglobin A1C 10.2 % (4.0-6.0)
== END 2025-02-06 23:59 | disposition home or self-care (01) ==
LOC: RAD 12:21
PROVIDERS: PCP Nurse Practitioner Family; Visit Provider Nurse Practitioner Family
DX: M19.012 Primary osteoarthritis, left shoulder (principal); E11.22 Type 2 diabetes mellitus with diabetic chronic kidney disease; I12.9 Hypertensive chronic kidney disease with stage 1 through stage 4 chronic kidney disease, or unspecified chronic kidney disease; N18.9 Chronic kidney disease, unspecified; E78.2 Mixed hyperlipidemia; E11.65 Type 2 diabetes mellitus with hyperglycemia; Z79.4 Long term (current) use of insulin; N39.0 Urinary tract infection, site not specified
CPT/HCPCS: 73030; 80053; 80061; 82043; 82570; 83036; 87077; 87086